=== PATIENT | female | born 1965 | race Caucasian/White ===

== ENCOUNTER 2019-09-23 12:12 | Emergency (ER) | payer SELFPAY ==
[~2019-09-23] VITALS: Ht 167.6 cm; Wt 99.8 kg
--- NOTE | 2019-09-24 22:12 | EKG ---
[facility] [address] [facility] [place], [place] [address] Signed Normal sinus rhythm Nonspecific ST abnormality Abnormal ECG No previous ECGs available Confirmed by YOCASTA LINDA MD ([id number]) on 09/24/2019 10:12:23 PM Electronically Signed By: YOCASTA LINDA MD 09/24/192211 PATIENT NAME: ANNABELLA HONEYCUTT Electrocardiogram DATE OF : 69 PHYSICIAN: YOCASTA LINDA MD REPORT #: [id number] REPORT IS CONFIDENTIAL AND NOT TO BE RELEASED WITHOUT AUTHORIZATION
== END 2019-09-23 19:07 | disposition home or self-care (01) ==
LOC: ED 12:12
DX: T42.4X1A Poisoning by benzodiazepines, accidental (unintentional), initial encounter (principal); I10 Essential (primary) hypertension; F41.0 Panic disorder [episodic paroxysmal anxiety]
CPT/HCPCS: 80053; 85025; 93005; 93010; 99284-25

== ENCOUNTER 2022-09-11 12:33 | Emergency (ER) | payer OTHER ==
[~2022-09-11] VITALS: Ht 167.6 cm; Wt 104.6 kg
--- OUTSIDE RECORDS SUMMARY | ~2022-09-11 | XMS | Continuity of Care Document ---
Demographics + + + | Address | [address] | | | [place] [address] | + + + | Preferred Language | Unknown | + + + | Marital Status | | + + + | Episcopalian Affiliation | Unknown | + + + | Race | White | + + + | Ethnic Group | Not or | + + + Author + + + | Author | [facility] | + + + | Organization | [facility] | + + + | Address | [address] | | | [place] [address] | + + + | Phone | | + + + Care Team Providers + + + + | Care Pta Name | Role | Phone | + + + + Unavailable | Unavailable | + + + + Allergies and Intolerances + + + + + + | date | description | facility | reaction | severity | + + + + + + | (no date) | No Known | [facility] | (no reaction) | (no severity) | | | Allergies | | | | + + + + + + Encounters No information. Functional Status No information. Immunizations No information. Medications No information. Problems + + + + | date | description | facility | + + + + | 2022-07-23 14:00 | ENCNTR SCREEN MAMMOGRAM | [facility] | | | FOR [facility] | | + + + + | 2022-09-04 07:55 | ENCNTR SCREEN MAMMOGRAM | [facility] | | | FOR [facility] | | + + + + | 2022-09-04 07:55 | ENCNTR SCREEN MAMMOGRAM | [facility] | | | FOR [facility] NEOPLASM OF | | | | BREAST | | + + + + | 2022-09-04 08:00 | ENCNTR SCREEN MAMMOGRAM | [facility] | | | FOR [facility] | | + + + + Procedures No information. Results/Labs No information. Social History No information. Vital Signs No information."
--- OUTSIDE RECORDS SUMMARY | ~2022-09-11 | XMS | Continuity of Care Document ---
Demographics + + + | Address | [address] | | | [place] [address] | + + + | Preferred Language | Unknown | + + + | Marital Status | | + + + | Denominational Affiliation | Unknown | + + + | Race | White | + + + | Ethnic Group | Not or | + + + Author + + + | Author | [facility] | + + + | Organization | [facility] | + + + | Address | [address] | | | [place] [address] | + + + | Phone | | + + + Care Team Providers + + + + | Care Business Systems Analyst Name | Role | Phone | + [...]
[2022-09-11] MEDS ORDERED: DICLOFENAC SOD100 GM TOP (14:13)
[2022-09-11 14:20] VITALS: BP 124/74
== END 2022-09-11 14:20 | disposition home or self-care (01) ==
LOC: ED 12:33
DX: M25.511 Pain in right shoulder (principal); I10 Essential (primary) hypertension
CPT/HCPCS: 99283

== ENCOUNTER 2022-12-10 10:28 | Day surgery (SDC) | payer OTHER, MEDICAID ==
[2022-12-09 11:47] VITALS: BP 95/62
[~2022-12-10] VITALS: Ht 167.6 cm; Wt 98.0 kg
[~2022-12-10 10:28] MED LIST: DICLOFENAC SOD100 GM TOP; LEVOTHYROXINE88 MC1 PO; LISINOPRIL-HCT1 EACH PO; OMEPRAZOLE20 MG PO; PROPRANOLOL HCL40 MG PO; PROZAC20 MG PO; TRIAMCINOLONE A15 G3 TOP; WELLBUTRIN XL150 MG PO
[2022-12-10 10:44] VITALS: BP 100/50
[2022-12-10 11:11] LABS: BASOPHILS 0.5 % (0-2); EOSINOPHILS 0.1 % (0-6); HEMATOCRIT 19.8 % (35.0-50.0); HEMOGLOBIN 8.2 g/dL (12.0-18.0); MCH 35.9 (27-36); MCHC 41.4 g/dl (30-36); MCV 86.6 fl (81-99); MONOCYTES 9.7 % (0-12); NEUTROPHILS 30.7 % (39-80); RBC 2.29 M/ul (4.3-5.7); RDW 14.8 (10.5-15.0)
[2022-12-10 11:30] LABS: PLATELET COUNT 28 K/uL (140-440)
[2022-12-10 12:14] LABS: ALBUMIN 3.5 g/dL (3.4-5.0); ALBUMIN/GLOBULIN RATIO 0.64 (1.1-2.4); ANION GAP 13.9 (7-21); BILIRUBIN, TOTAL 0.4 ng/dL (0.2-1.0); BUN/CREATININE RATIO 19.29 (6.0-28.6); CALCIUM 9.2 mg/dL (8.5-10.1); CREATININE, SERUM 1.14 mg/dL (0.55-1.02); POTASSIUM 3.9 mmol/L (3.5-5.1)
[2022-12-10 12:50] LABS: ABO B; ANTIBODY SCREEN NEGATIVE; RH POSITIVE
[2022-12-10 12:51] LABS: ABO B; RH POSITIVE
--- NOTE | 2022-12-10 13:38 | NUR ---
1133: CALLED CANCER CLINIC TO REPORT CRITICAL PLATELET VALUE. SPOKE WITH Adi LUTZ RN. ALSO NOTIFIED HER OF PATIENT'S ONGOING BLOODY NOSE FOR THE PAST COUPLE HOURS AND NEWLY REPORTED BLEEDING FROM RECTUM. CHARLIE LUTZ WILL REPORT ALL THIS INFO TO DR. CHÁVEZ. 1145: CHARLIE LUTZ PHONED BACK. STATED THAT DR. CHÁVEZ WILL COME SEE PATIENT IN DAY SURGERY AND PLANS TO ORDER PLATELETS. 1155: DR. CHÁVEZ IN TO SPEAK WITH PATIENT AND . NEW ORDER RECEIVED FOR PLATELETS. LAB NOTIFIED. WILL DRAW TYPE AND SCREEN. 1201: BLOOD DRAWN FROM IV SITE FOR TYPE AND SCREEN. BLOOD BAND PLACED ON PATIENT'S LEFT WRIST. COLLATING MACHINE OPERATOR IN TO SPEAK WITH PATIENT AND . 1207: RT IN PATIENT'S ROOM TO DO EKG. 1212: PATIENT TAKEN TO ENDO ROOM FOR PROCEDURE.
--- NOTE | 2022-12-10 13:44 | NUR ---
1308: RECOVERY PERIOD FOR PATIENT ENDED. NOW BACK IN DAY SURGERY. AWAITING PLATELETS ARRIVAL. LUNCH ORDERED FOR PATIENT. AT BEDSIDE. 1330: LUNCH HERE. PATIENT GIVEN SODA. AT BEDSIDE. CALL LIGHT WITHIN REACH.
--- NOTE | 2022-12-10 15:19 | NUR ---
CHECKED PATIENT. PATIENT SLEEPING. UPDATED THAT WE ARE STILL WAITING FOR PLATELETS TO ARRIVE. AT BEDSIDE. CALL LIGHT WITHIN REACH.
--- NOTE | 2022-12-10 15:59 | NUR ---
PATIENT GIVEN WARM BLANKETS AND SODA. AT BEDSIDE. CALL LIGHT WITHIN REACH.
--- NOTE | 2022-12-10 17:15 | NUR ---
PT ARRIVES TO FLOOR FROM DAY SURGERY VIA STRETCHER. ALERT AND ORIENTED. BP 93/46, MAP 58. PT STATES FEELING DIZZY. LAID DOWN ON STRETCHER. PT DENIES FURTHER NEEDS AT THIS TIME. FAMILY AT BEDSIDE. CALL LIGHT IN REACH.
[2022-12-10 17:27] VITALS: BP 93/46
[2022-12-10 17:45] VITALS: BP 91/48
[2022-12-10 18:00] VITALS: BP 94/43
[2022-12-10 18:54] VITALS: BP 128/51
--- NOTE | 2022-12-10 18:54 | NUR ---
PT ASSISTED FROM STRETCHER TO BSC. DENIES DIZZNESS OR LIGHT HEADEDNESS. 300 ML CLEAR YELLOW URINE. PT BACK TO STRETCHER. BP 128/51. CALL LIGHT IN REACH.
--- NOTE | 2022-12-10 19:26 | NUR ---
PT RESTING IN STRETCHER, DENIES DIZZINESS OR LIGHT HEADEDNESS. DENIES PAIN OR NEEDS AT THIS TIME. CALL LIGHT IN REACH. SO AT BEDSIDE.
--- NOTE | 2022-12-10 19:42 | NUR ---
Into check on patient. Patient currently laying in bed watching tv. Pt given fresh water. Denies any other cares at this time.
--- NOTE | 2022-12-10 20:03 | NUR ---
Patient discharged with . Pt tolerated standing and getting dressed well. Blood pressure has improved. Patient left with all her belongings via a wheelchair. Denies dizziness. C/o slight upset stomach but states that has been going on. IV removed.
[2022-12-11 05:24] LABS: FOLATE,SERUM 11.4 ng/mL (>=5.9)
[2022-12-11 08:44] LABS: HEPATITIS A ANTIBODY, IGM Negative (Negative); HEPATITIS B CORE ANTIBODY, IGM Negative (Negative); HEPATITIS B SURFACE ANTIGEN Negative (Negative); HEPATITIS C AB CIA INTERP Negative (Negative); HEPATITIS C ANTIBODY CIA INDEX 0.06 IV (())
[2022-12-11 09:26] LABS: HIV 1,2 COMBO ANTIGEN/ANTIBODY Negative (Negative)
--- NOTE | 2022-12-11 12:38 | EKG ---
[facility] [address] [facility] [address] [place], [place] [address] Signed Normal sinus rhythm Normal ECG Confirmed by MIGUEL ANGEL COATES MD ([id number]) on 12/11/2022 12:37:41 PM Electronically Signed By: MIGUEL ANGEL COATES 12/11/22 1238 PATIENT NAME: ANNABELLA DING Electrocardiogram DATE OF : 69 PHYSICIAN: MIGUEL ANGEL COATES REPORT #: [id number] REPORT IS CONFIDENTIAL AND NOT TO BE RELEASED WITHOUT AUTHORIZATION
[2022-12-11 12:44] LABS: BETA-2-MICROGLOBULIN,SER/PLAS 3.2 mg/L (0.8-2.4)
[2022-12-11 14:16] LABS: IMMUNOGLOBULIN A 274 mg/dL (68-408); IMMUNOGLOBULIN G 932 mg/dL (768-1632); IMMUNOGLOBULIN M 2730 mg/dL (35-263); KAPPA QNT FREE LIGHT CHAINS 41.39 mg/L (3.30-19.40); KAPPA/LAMBDA FREE LIGHT CH RAT 2.25 (0.26-1.65); LAMBDA QNT FREE LIGHT CHAINS 18.38 mg/L (5.71-26.30)
[2022-12-13 08:37] LABS: ALBUMIN 3.84 g/dL (3.75-5.01); ALPHA 1 GLOBULIN 0.37 g/dL (0.19-0.46); ALPHA 2 GLOBULIN 0.76 g/dL (0.48-1.05); BETA GLOBULIN 2.08 g/dL (0.48-1.10); GAMMA 1.25 g/dL (0.62-1.51); IMMUNOFIXATION REFLEX IFE Done (()); TOTAL PROTEIN,SERUM 8.3 g/dL (6.3-8.2)
== END 2022-12-10 13:08 | disposition home or self-care (01) ==
LOC: DS 10:28
PROVIDERS: ATTEND Specialist
PROC: 079T3ZX Drainage of Bone Marrow, Percutaneous Approach, Diagnostic (ICD-10-PCS; principal; 2022-12-10 12:00)
DX: D61.818 Other pancytopenia (principal)
CPT/HCPCS: 01112; 36415; 36430; 80053; 80074; 82232; 82607; 82746; 83615; 85025; 85060; 86850; 86900; 86901; 93005; 93010; A9270; J2001; J2250; J2405; J2704; J3010; J7121; P9035

== ENCOUNTER 2022-12-19 15:58 | Emergency (ER) | payer OTHER, MEDICAID ==
[~2022-12-19] VITALS: Ht 167.6 cm; Wt 98.0 kg
--- OUTSIDE RECORDS SUMMARY | 2022-12-19 16:06 | XMS ---
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 CARE TEAM PHONE: [phone] Wade has no Care Guidelines for this patient. E.D. VISIT COUNT (12 MO.) [address] [facility] TOTAL 4 NOTE: Visits indicate total known visits. ED/UCC VISIT TRACKING (12 MO.) 12/19/2022 15:59 [facility] TYPE: Emergency COMPLAINT: - HEART PALPATATIONS 12/14/2022 18:17 [facility] TYPE: Emergency COMPLAINT: - NOSE BLEED DIAGNOSES: - Epistaxis - Essential (primary) hypertension - Hormone replacement therapy - Hypothyroidism, unspecified - Other 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 - Other pancytopenia 12/02/2022 17:40 [facility] TYPE: Emergency COMPLAINT: - ABNORMAL LAB RESULTS DIAGNOSES: - Epistaxis - Essential (primary) hypertension - Hormone replacement therapy - Hypothyroidism, unspecified - Other [facility] (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 - Other pancytopenia - Weakness 09/11/2022 12:34 [facility] TYPE: Emergency COMPLAINT: - R SHOULDER PAIN DIAGNOSES: - Essential (primary) hypertension - Pain in right shoulder INPATIENT VISIT TRACKING (12 MO.) No inpatient visits to display in this time frame [email or web address]
[2022-12-19] MEDS ORDERED: DEXAMETHASONE4 MG PO (16:08)
[2022-12-19 16:22] LABS: EOSINOPHILS 0.2 % (0-6); HEMATOCRIT 22.5 % (35.0-50.0); HEMOGLOBIN 8.7 g/dL (12.0-18.0); LYMPHOCYTES 5.4 % (24-44); MCH 33.2 (27-36); MCHC 38.5 g/dl (30-36); MCV 86.2 fl (81-99); MONOCYTES 3.3 % (0-12); NEUTROPHILS 91.1 % (39-80); RBC 2.61 M/ul (4.3-5.7); RDW 16.8 (10.5-15.0)
[2022-12-19 16:33] LABS: ALBUMIN 3.6 g/dL (3.4-5.0); ALBUMIN/GLOBULIN RATIO 0.77 (1.1-2.4); ANION GAP 15.8 (7-21); BILIRUBIN, TOTAL 0.6 ng/dL (0.2-1.0); BUN/CREATININE RATIO 24.44 (6.0-28.6); CALCIUM 8.7 mg/dL (8.5-10.1); CREATININE, SERUM 1.35 mg/dL (0.55-1.02); MAGNESIUM 2.4 mg/dL (1.8-2.4); POTASSIUM 3.8 mmol/L (3.5-5.1); PROTEIN, TOTAL 8.3 g/dL (6.4-8.2)
[2022-12-19 17:10] LABS: PLATELET COUNT 38 K/uL (140-440)
[2022-12-19] MEDS ORDERED: ATIVAN1 MG PO (17:43)
[2022-12-19 17:58] VITALS: BP 129/70
--- NOTE | 2022-12-20 06:00 | EKG ---
[facility] [address] [facility] [place] [address] Signed Sinus rhythm with premature atrial complexes Nonspecific ST abnormality Abnormal ECG When compared with ECG of 10-DEC-2022 12:06, premature atrial complexes are now present Confirmed by MIGUEL ANGEL COATES MD ([id number]) on 12/20/2022 6:00:07 AM Electronically Signed By: MIGUEL ANGEL COATES 12/20/22 0600 PATIENT NAME: ANNABELLA DING Electrocardiogram DATE OF : 69 PHYSICIAN: MIGUEL ANGEL COATES REPORT #: [id number] REPORT IS CONFIDENTIAL AND NOT TO BE RELEASED WITHOUT AUTHORIZATION
== END 2022-12-19 17:58 | disposition home or self-care (01) ==
LOC: ED 15:58
PROVIDERS: Emergency Medicine
DX: F41.9 Anxiety disorder, unspecified (principal); T38.0X5A Adverse effect of glucocorticoids and synthetic analogues, initial encounter; I10 Essential (primary) hypertension; Z79.899 Other long term (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; Z79.890 Hormone replacement therapy; Z79.52 Long term (current) use of systemic steroids
CPT/HCPCS: 36415; 71045; 80053; 83735; 84484; 85025; 85060; 93005; 93010; 96374; 99284-25; A9270; C9803; J2060

== ENCOUNTER 2023-02-22 05:59 | Emergency (ER) | payer OTHER, MEDICAID ==
[~2023-02-22] VITALS: Ht 165.1 cm; Wt 100.5 kg
[~2023-02-22 05:59] MED LIST changes: +ATIVAN1 MG PO; +DEXAMETHASONE4 MG PO
[2023-02-22 06:45] LABS: BASOPHILS 0.1 % (0-2); EOSINOPHILS 0.4 % (0-6); HEMATOCRIT 30.5 % (35.0-50.0); HEMOGLOBIN 11.4 g/dL (12.0-18.0); LYMPHOCYTES 14.6 % (24-44); MCH 34.6 (27-36); MCHC 37.3 g/dl (30-36); MCV 92.7 fl (81-99); MONOCYTES 15.5 % (0-12); NEUTROPHILS 69.4 % (39-80); PLATELET COUNT 167 K/uL (140-440); RBC 3.29 M/ul (4.3-5.7); RDW 17.5 (10.5-15.0)
[2023-02-22 06:54] LABS: ALBUMIN 3.4 g/dL (3.4-5.0); ALBUMIN/GLOBULIN RATIO 0.77 (1.1-2.4); BILIRUBIN, TOTAL 0.3 ng/dL (0.2-1.0); BUN/CREATININE RATIO 18.36 (6.0-28.6); CALCIUM 8.7 mg/dL (8.5-10.1); CREATININE, SERUM 0.98 mg/dL (0.55-1.02); PROTEIN, TOTAL 7.8 g/dL (6.4-8.2)
[2023-02-22] MEDS ORDERED: PREDNISONE20 MG PO (07:07)
[2023-02-22 07:22] VITALS: BP 165/93
== END 2023-02-22 07:22 | disposition home or self-care (01) ==
LOC: ED 05:59
PROVIDERS: Internal Medicine
DX: M54.42 Lumbago with sciatica, left side (principal); C85.10 Unspecified B-cell lymphoma, unspecified site; I10 Essential (primary) hypertension; Z79.899 Other long term (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; Z79.52 Long term (current) use of systemic steroids
CPT/HCPCS: 36415; 72131; 80053; 82553; 85025; 85060; 96374; 96375; 99284-25; A9270; J2270; J2405

== ENCOUNTER 2023-03-18 10:30 | Day surgery (SDC) | payer OTHER ==
[2023-03-16 16:22] VITALS: BP 134/87
[~2023-03-18] VITALS: Ht 165.1 cm; Wt 97.7 kg
[~2023-03-18 10:30] MED LIST changes: +PREDNISONE20 MG PO
[2023-03-18 10:58] LABS: BASOPHILS 0.2 % (0-2); BASOPHILS, ABSOLUTE 0 %; EOSINOPHILS 0.2 % (0-6); EOSINOPHILS, ABSOLUTE 0; HEMATOCRIT 32.6 % (35.0-50.0); HEMOGLOBIN 11.6 g/dL (12.0-18.0); LYMPHOCYTES 23.8 % (24-44); LYMPHOCYTES, ABSOLUTE 1.3; MCH 32.4 (27-36); MCHC 35.5 g/dl (30-36); MCV 91.4 fl (81-99); MONOCYTES 14.2 % (0-12); MONOCYTES, ABSOLUTE 0.8; NEUTROPHILS 61.6 % (39-80); NEUTROPHILS, ABSOLUTE 3.4; PLATELET COUNT 148 K/uL (140-440); RBC 3.57 M/ul (4.3-5.7); RDW 15.4 (10.5-15.0)
[2023-03-18 10:59] VITALS: BP 147/71
[2023-03-18 13:31] VITALS: BP 109/66
--- NOTE | 2023-03-18 13:37 | NUR ---
03/18/23 1337 SamYuliya rowan 1227 PT ARRIVED IN PACU NON RESPONSIVE TO NOXIOUS STIMULI WITH OPA IN PLACE. BP LOW. ANESTHESIA AWARE. 1233 EPHEDRINE GIVEN IVP BY ANESTHESIA. 1235 BP 106/63. PT REACTIVE. OPA REMOVED. 1245 REPOSITIONED SELF TO BACK AND SITTING UP IN BED TALKING TO STAFF. 1300 DC INSTRUCTIONS GIVEN. LEFT VIA W/C.
--- NOTE | 2023-03-26 12:40 | PATH ---
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 - No circulating blasts or atypical lymphocytes are identified. Bone marrow biopsy and aspiration: - Hypercellular marrow, 90%, with less than 1% blasts. - Trilineage hematopoiesis with mild megakaryocytic hyperplasia. - No malignancy is identified by morphology or immunohistochemistry. - Flow cytometry detects a non-specific kappa biased B-cell population (0.04%). - See diagnostic comment. DIAGNOSTIC COMMENT: No residual lymphoplasmacytic lymphoma is identified by morphology or immunohistochemistry. However, flow cytometry detects an extremely small population of kappa biased B-cells occupying approximately 0.04% of all gated cells. This may represent minimal residual disease, but this cannot be confirmed by morphologic or immunohistochemistry staining. A MYD88 mutation study and B-cell gene rearrangement studies are ordered to help evaluate for MRD. The results will be reported in an addendum. A hypercellular marrow with megakaryocytic hyperplasia with mild atypia is noted. Molecular studies for JAK2 V617, MPL, and CALR were negative in the prior bone marrow exam ([id number]). A BCR/ABL1 FISH probe and a FISH panel for MDS are pending on the current bone marrow. Evaluation for splenomegaly is recommended. The etiology for the hypercellular marrow is unclear. Exclusion of drug effect (steroids or Neupogen) is needed. 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 Subsequently, the patient was found with an IgM-Peoa M-spike consistent with Waldenstrom's macroglobulinemia. She has received chemotherapy and this bone marrow exam is to evaluate for MRD. PERIPHERAL BLOOD: HEMOGRAM (03/18/2023): WBC 5.5 K/ul, RBC 3.57 M/ul, HGB 11.6 g/dl, HCT 32.6%, MCV 91.4 fl, MCH 32.4 pg, MCHC 35.5 g/dl, RDW 15.4%, PLT 148 K/ul, MPV 10.7 fl. AUTOMATED DIFFERENTIAL COUNT: Neutrophils 61.6%, lymphocytes 23.8%, monocytes 14.2%, eosinophils 0.2%, basophils 0.2%. The red blood cells are normocytic and normochromic with minimal aniso-poikilocytosis. The neutrophils are unremarkable. Lymphocytes are composed of small mature appearing forms. Platelets are basically normal in number and morphology with no platelet clumping or RBC microangiopathic effect identified. No blasts or atypical lymphocytes are identified. BONE MARROW: ASPIRATE SMEARS/TOUCH IMPRINT: The aspirate smears are adequate for evaluation. Scattered erythroid precursors show adequate maturation with essentially normal morphology. The myeloid precursors show full maturation with unremarkable morphology. There is no increase in blasts. Megakaryocytes are identified with some enlarged multilobed forms. BONE MARROW DIFFERENTIAL COUNT (300 cells): Blasts less than 1%. promyelocytes 1%, myelocytes 4%, metamyelocytes/bands/segs 59%, erythroid precursors 11%, lymphocytes 17%, monocytes 4%, eosinophils 3%, plasma cells 1%. M:E ratio: 6:1 BONE MARROW CORE BIOPSY/ASPIRATE CLOT/CELL BLOCK: The aspirate clot section and the core biopsy are adequate for evaluation. The core biopsy demonstrates unremarkable trabecular bone. The cellularity is increased for age, estimated at 90%. The erythroid precursors are within normal limits with essentially unremarkable maturation. The myeloid precursors are unremarkable with no significant dyspoiesis. Blasts are not increased. Megakaryocytes appear increased in number with some enlarged hyperlobated megakaryocytes. No granulomas, or foreign malignant cells are detected. SPECIAL STAINS (with adequate controls): - iron (aspirate smear): Insufficient marrow spicules are present for evaluation of marrow iron stores. PATIENT NAME: KHURRAM HONEYCUTTANNABELLA PATHOLOGY DATE OF : 69 REPORT #: [id number] PHYSICIAN: GLADIS PATHOLOGY PCP: STEPHANIE WHITE MD REPORT IS CONFIDENTIAL AND NOT TO BE RELEASED WITHOUT AUTHORIZATION [address] [address] Signed - iron (cell block): Positive for iron with Prussian Blue stain. No ring sideroblasts are identified. - reticulin (block A1): MF-0 - PAS (block B1): Increased megakaryocytes with some atypia. IMMUNOHISTOCHEMISTRY STAINS (performed with adequate controls). - PAX5 (block A1): 1-2% with no atypical aggregates - CD3 (block A1): Strongly positive in lymphoid aggregate - PAX5 (block B1): 1-2% with no atypical aggregates. - CD3 (block B1): Strong marking in lymphoid aggregates. FLOW CYTOMETRY: Bone marrow, flow cytometry: - Scant population of CD5 negative, CD10 negative, kappa biased B-cells (0.04%). - See Comment. COMMENT: The patient's prior history of Waldenstrom's macroglobulinemia is noted. A scant (0.04% population of kappa biased B-cells is noted. These B-cells are negative for CD5 and CD10 and have a similar marking pattern to the prior positive bone marrow evaluation (see case [id number]; 12/10/2022). This is suspicious for minimal residual disease (0.04%). Correlation with bone marrow findings is needed. FLOW CYTOMETRY ANALYSIS: FLOW DIFFERENTIAL (% Total CD45 vs. SSC gating): Myeloid 77%; Lymphoid 13%; Monocyte 5%; Dim CD45/Blast: 0.3%. Cell Count: 5.1 x 10*3/uL. POPULATION ANALYSIS: BLASTS: Analysis of the dim CD45 gate demonstrates 0.3% myeloblasts by CD34/CD117 and 0.1% hematogones. LYMPHOID CELLS: The lymphocyte gate comprises 13% of total events and includes 84% T-cells with a CD4:CD8 ratio of 1.5:1 and normal durna T-cell antigen expression. A minute kappa-restricted B-cell population is detected (0.3% of lymphocytes, 0.04% of total events, n=14) expressing CD45 MOD, CD19 DIM, CD38 DIM (partial), and KAPPA MOD while negative for CD20, CD5, CD10, CD23, and CD38. The remainders are NK-cells. MYELOID CELLS: The myeloid population comprises 77% of the total events. No aberrant immunophenotypic expression is detected. MONOCYTES: The monocyte population comprises 5% of the total events. Monocytes are not increased. No aberrant immunophenotypic expression is detected. PATIENT NAME: ANNABELLA GOLD PATHOLOGY DATE OF : 69 REPORT #: [id number] PHYSICIAN: GLADIS ROD PCP: STEPHANIE WHITE MD REPORT IS CONFIDENTIAL AND NOT TO BE RELEASED WITHOUT AUTHORIZATION [facility] [address], [place] [address] Signed PLASMA CELLS: 0.1% plasma cells are detected in the screening gate neg-dimCD45/CD38. Plasma cells are CD45 dim and positive for CD19. ANTIBODIES USED: KAPPA, LAMBDA, CD20, CD10, CD19, CD23, CD38, CD16, CD56, CD8, CD5, CD2, CD4, CD7, CD3, CD14, CD33, CD13, HLADR, CD34, CD117, CD15, CD45: TOTAL ANTIBODIES USED: 23. JNB FINAL DIAGNOSIS PERFORMED BY: Drew Becerra MD, Mar 19 2023 12:19PM CYTOGENETICS: Chromosome analysis is pending, and the result will be reported in an addendum. FISH ANALYSIS: A FISH panel for MDS is pending, and the result will be reported in an addendum. MOLECULAR / PCR: A mutation study for MYD88 is pending, and the result will be reported in an addendum. B-cell gene rearrangement studies are pending. GROSS DESCRIPTION: Two specimens are received in two containers. A. The specimen, labeled and designated "Miguel Gold, bone marrow biopsy, left core," is received in formalin and consists of a portion of red-aguilera soft tissue and bone measuring 2.4 x 0.2 x 0.2 cm, the specimen is submitted entirely in (A1) following decalcification in Immunocal. B. The specimen, labeled and designated "Miguel Gold, bone marrow biopsy clot," is received in formalin and consists of a portion of red-brown soft clot like material measuring 2.3 x 1.6 x 0.8 cm in aggregate, the specimen is submitted entirely in (B1). MMA (under the direct supervision of a pathologist) The Gross Description was prepared using a voice recognition system. The report was reviewed for accuracy; however, sound-alike word errors, addition and/or deletions may occur. If there is any question about this report, please contact Client Services. ADDITIONAL NOTES: Immunohistochemical and/or in situ hybridization studies if performed in this case included appropriate positive controls that reacted as expected. This test was developed and its performance PATIENT NAME: ANNABELLA GOLD FRANCESCA PATHOLOGY DATE OF : 69 REPORT #: [id number] PHYSICIAN: GLADIS ROD PCP: STEPHANIE WHITE MD REPORT IS CONFIDENTIAL AND NOT TO BE RELEASED WITHOUT AUTHORIZATION [address] [address] Signed characteristics determined by [facility]. It has not been cleared or approved by the U.S. Food and Drug Administration. The FDA has determined that such clearance or approval is not necessary. This test is used for clinical purposes. It should not be regarded as investigational or for research. [facility] is certified under the Clinical Laboratory Improvement Amendments of 1988 (CLIA) as qualified to perform high complexity clinical laboratory testing. In this case, certain antibodies were performed by both immunohistochemistry and flow cytometry analysis because flow cytometry analysis did not fully explain all the light microscopic findings. Immunohistochemistry aided in the analysis. Both methods are deemed medically necessary in this case. This test was developed and its performance characteristics determined by [facility]. It has not been cleared or approved by the US Food and Drug Administration. The FDA does not require this test to go through premarket FDA review. This test is used for clinical purposes. It should not be regarded as investigational or for research. This laboratory is certified under the Clinical Laboratory Improvement Amendments (CLIA) as qualified to perform high complexity clinical laboratory testing. PERFORMING LABORATORY: The technical preparation was performed by [facility], [address] [place] [address] (CLIA#: [id number]). Professional interpretation was performed by [facility] - [facility], [address] [place], [place] [id number] (CLIA#: [id number]). Technical component was performed by [facility], [address] [place] [address] (CLIA# [id number]). Professional interpretation was performed by [facility], [address] [place], [place] [id number] (CLIA#: [id number]). IMAGES: A: [id number] A: [id number] REASON FOR ADDENDUM: To report results of additional testing. Bone marrow, MYD88 Mutation(s): Not Detected PATIENT NAME: ANNABELLA GOLD PATHOLOGY DATE OF : 69 REPORT #: [id number] PHYSICIAN: GLADIS PATHOLOGY PCP: STEPHANIE WHITE MD REPORT IS CONFIDENTIAL AND NOT TO BE RELEASED WITHOUT AUTHORIZATION [facility] [address], [place] [address] Signed Clinical Significance: MYD88 mutation is the most frequent genomic abnormality in diffuse large B-cell lymphoma (DLBCL) activated B-cell-like (ABC) subtype, detected in 40% of cases. MYD88 is rarely mutated in the germinal center B-cell-like (GCB) DLBL, therefore, it can be used to differentiate between the two subtypes. MYD88 mutation is detected in approximately 90% of cases of Waldenstrom macroglobulinemia/lymphoplasmacytic lymphoma. MYD88 mutation analysis can be a useful prognostic tool for patients with IgM-MGUS since the L265P mutation is associated with a higher risk of disease progression and a greater disease burden. MYD88 mutation has also been reported to be common (40%) in central nervous system lymphoma. Methodology: DNA was extracted from cells or paraffin-embedded tissues (FFPE). Bi-directional Wyckoff sequencing of the L265P mutation in exon 5 of MYD88 was performed. This is a high sensitivity sequencing-based assay using enrichment of mutant allele and negative selection of wild type by locked nucleic acid (BITUMINOUS DISTRIBUTOR OPERATOR). The assay has a sensitivity of 0.5% for detecting the L265P mutation in a wild-type background. Various factors including quantity and quality of nucleic acid, sample preparation, and sample age can affect assay performance. References: 1. Kenya SP, Rogel L, Karsten ML, Josias C, et al. Genomic Landscape of Waldenstrom Macroglobulinemia and Its Impact on Treatment Strategies. J Clin Oncol. 2020;38(11):4126-8288. PMID: 51571686. 2. Kang X, Li W, Aguilar Q,et al. MYD88 L265P Mutation in Lymphoid Malignancies. Cancer Res. 2018;78(10):3433-2444. PMID: 79607019. Test/Panel/MolDX CPT AMA CPT MYD88 Mutation Analysis/[id number] Accession / CaseNo: [id number] / [id number] The Accessioning Component, Technical Component Processing, Analysis and Professional Component of this test was completed at [facility], [address] [place] [address], [place] / [address] / [phone] / CLIA # [id number] / Mental Health Associate(s): Russell Quiros M.D. Interpretation Code(s): [id number] The performance characteristics of this test have been determined by [facility]. This test has not been approved by the FDA. The FDA has determined such clearance or approval is not necessary. This laboratory is CLIA certified to perform high complexity PATIENT NAME: ANNABELLA GOLD FRANCESCA PATHOLOGY DATE OF : 69 REPORT #: [id number] PHYSICIAN: GLADIS ROD PCP: STEPHANIE WHITE MD REPORT IS CONFIDENTIAL AND NOT TO BE RELEASED WITHOUT AUTHORIZATION [address] [address] Signed clinical testing. Images that may be included within this report are distribution sales representative of the patient but not all testing in its entirety and should not be used to render a result. The CPT codes provided with our test descriptions are based on MolDX and AMA guidelines and are for informational purposes only. Correct CPT coding is the sole responsibility of the billing libertarian. Please direct any questions regarding coding to the payer being billed. Diagnostician: Drew Becerra MD Pathologist Electronically Signed 03/26/2023 Copies: ~ PATIENT NAME: ANNABELLA GOLD PATHOLOGY DATE OF : 69 REPORT #: [id number] PHYSICIAN: GLADIS PATHOLOGY PCP: STEPHANIE WHITE MD REPORT IS CONFIDENTIAL AND NOT TO BE RELEASED WITHOUT AUTHORIZATION
== END 2023-03-18 13:00 | disposition home or self-care (01) ==
LOC: OPS 10:30 → DS 10:30 → OPS 12:00
PROVIDERS: ATTEND Specialist
DX: C88.0 Waldenstrom macroglobulinemia (principal); I10 Essential (primary) hypertension; E03.9 Hypothyroidism, unspecified; F32.9 Major depressive disorder, single episode, unspecified; G43.909 Migraine, unspecified, not intractable, without status migrainosus; D61.818 Other pancytopenia; Z79.899 Other long term (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; D64.9 Anemia, unspecified
CPT/HCPCS: 01112; 36415; 85025; J2250; J2704; J7121

== ENCOUNTER 2023-03-24 11:23 | Emergency (ER) | payer OTHER ==
[~2023-03-24] VITALS: Ht 165.1 cm; Wt 97.5 kg
--- OUTSIDE RECORDS SUMMARY | 2023-03-24 11:31 | XMS ---
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 Araseli VISIT COUNT (12 MO.) [address] [place] [address] TOTAL 6 NOTE: Visits indicate total known visits. ED/UCC VISIT TRACKING (12 MO.) 03/24/2023 11:25 [facility] TYPE: Emergency COMPLAINT: - L ANKLE INJURY 02/22/2023 06:00 [facility] TYPE: Emergency COMPLAINT: - L FLANK PAIN DIAGNOSES: - Essential (primary) hypertension - nursing home (current) use of systemic steroids - Low back pain, unspecified - Lumbago with sciatica, left side - Other [facility] (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 - Unspecified B-cell lymphoma, unspecified site 12/19/2022 15:59 [facility] TYPE: Emergency COMPLAINT: - HEART PALPATATIONS DIAGNOSES: - Adverse effect of glucocorticoids and synthetic analogues, initial encounter - Anxiety disorder, unspecified - Contact with and (suspected) exposure to COVID-19 - Encounter for screening for COVID-19 - Essential (primary) hypertension - Hormone replacement therapy - 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 [place] TYPE: Emergency COMPLAINT: - NOSE BLEED DIAGNOSES: - Epistaxis - Essential (primary) hypertension - Hormone replacement therapy - Hypothyroidism, unspecified - Other [facility] (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 - Other pancytopenia 12/02/2022 17:40 [facility] TYPE: Emergency COMPLAINT: - ABNORMAL LAB RESULTS DIAGNOSES: - Epistaxis - Essential (primary) hypertension - Hormone replacement therapy - Hypothyroidism, unspecified - Other [facility] (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 - Other pancytopenia - Weakness 09/11/2022 12:34 [facility] TYPE: Emergency COMPLAINT: - R SHOULDER PAIN DIAGNOSES: - Essential (primary) hypertension - Pain in right shoulder INPATIENT VISIT TRACKING (12 MO.) No inpatient visits to display in this time frame [email or web address]
[2023-03-24 12:23] VITALS: BP 118/66
== END 2023-03-24 12:28 | disposition home or self-care (01) ==
LOC: ED 11:23
DX: S93.402A Sprain of unspecified ligament of left ankle, initial encounter (principal); I10 Essential (primary) hypertension; F41.0 Panic disorder [episodic paroxysmal anxiety]; E03.9 Hypothyroidism, unspecified; Z79.899 Other long term (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; X50.9XXA Other and unspecified overexertion or strenuous movements or postures, initial encounter; Y93.01 Activity, walking, marching and hiking
CPT/HCPCS: 73610; 99283-25; A9270

== ENCOUNTER 2023-04-10 06:43 | Inpatient (IN) | payer OTHER ==
[~2023-04-10] VITALS: Ht 165.1 cm; Wt 105.0 kg
--- OUTSIDE RECORDS SUMMARY | 2023-04-10 06:46 | XMS ---
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 E.DMk VISIT COUNT (12 MO.) [address] [place] [address] TOTAL 7 NOTE: Visits indicate total known visits. ED/UCC VISIT TRACKING (12 MO.) 04/10/2023 06:[address] [facility] [place] TYPE: Emergency COMPLAINT: - V/D, ABD PAIN 03/24/2023 11:25 [facility] [place] TYPE: Emergency COMPLAINT: - L ANKLE INJURY DIAGNOSES: - Activity, walking, marching and hiking - Essential (primary) hypertension - Hypothyroidism, unspecified - Other and unspecified overexertion or strenuous movements or postures, initial encounter - Other intermediate (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 - Pain in left ankle and joints of left foot - Panic disorder [episodic paroxysmal anxiety] - Sprain of unspecified ligament of left ankle, initial encounter 02/22/2023 06:00 [facility] [place] TYPE: Emergency COMPLAINT: - L FLANK PAIN DIAGNOSES: - Essential (primary) hypertension - 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 - Low back pain, unspecified - Lumbago with sciatica, left side - Other diplomatic interpreter/translator (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 - Unspecified B-cell lymphoma, unspecified site 12/19/2022 15:59 [facility] [place] TYPE: Emergency COMPLAINT: - HEART PALPATATIONS DIAGNOSES: - Adverse effect of glucocorticoids and synthetic analogues, initial encounter - Anxiety disorder, unspecified - Contact with and (suspected) exposure to COVID-19 - Encounter for screening for COVID-19 - Essential (primary) hypertension - Hormone replacement therapy - 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 - Other chest pain - Other diplomatic interpreter/translator (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 12/14/2022 18:17 [facility] [place] TYPE: Emergency COMPLAINT: - NOSE BLEED DIAGNOSES: - Epistaxis - Essential (primary) hypertension - Hormone replacement therapy - Hypothyroidism, unspecified - Other intermediate (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 - Other pancytopenia 12/02/2022 17:40 [facility] [place] TYPE: Emergency COMPLAINT: - ABNORMAL LAB RESULTS DIAGNOSES: - Epistaxis - Essential (primary) hypertension - Hormone replacement therapy - Hypothyroidism, unspecified - Other diplomatic interpreter/translator (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 - Other pancytopenia - Weakness 09/11/2022 12:34 [facility] [place] TYPE: Emergency COMPLAINT: - R SHOULDER PAIN DIAGNOSES: - Essential (primary) hypertension - Pain in right shoulder INPATIENT VISIT TRACKING (12 MO.) No inpatient visits to display in this time frame [email or web address]
[2023-04-10] MEDS ORDERED: ondansetron HCL 4 MG/2 ML VIAL IV ONE (07:15)
[2023-04-10] MEDS ORDERED: HYDROmorphone HCL 1 MG/ML SYR IV PRN (07:15)
[2023-04-10 07:23] LABS: BASOPHILS 0.5 % (0-2); EOSINOPHILS 0.1 % (0-6); HEMATOCRIT 50.6 % (35.0-50.0); HEMOGLOBIN 17.6 g/dL (12.0-18.0); LYMPHOCYTES 4.3 % (24-44); MCH 30.8 (27-36); MCHC 34.7 g/dl (30-36); MCV 88.7 fl (81-99); NEUTROPHILS 91.1 % (39-80); PLATELET COUNT 190 K/uL (140-440); RBC 5.71 M/ul (4.3-5.7); RDW 14.5 (10.5-15.0)
[2023-04-10 07:39] LABS: ALBUMIN 3.1 g/dL (3.4-5.0); ALBUMIN/GLOBULIN RATIO 0.76 (1.1-2.4); ANION GAP 24.7 (7-21); BILIRUBIN, TOTAL 0.3 ng/dL (0.2-1.0); BUN/CREATININE RATIO 17.39 (6.0-28.6); CALCIUM 8.9 mg/dL (8.5-10.1); CREATININE, SERUM 1.61 mg/dL (0.55-1.02); MAGNESIUM 1.9 mg/dL (1.8-2.4); POTASSIUM 4.7 mmol/L (3.5-5.1); PROTEIN, TOTAL 7.2 g/dL (6.4-8.2)
[2023-04-10] MEDS ORDERED: SODIUM CHLORIDE 0.9% 1,000 ML IV PRN ×2 (07:45→08:15)
[2023-04-10 08:33] LABS: LACTIC ACID, BLOOD 2.1 mmol/L (0.4-2.0)
[2023-04-10 09:27] LABS: INFLUENZA B NAA NEGATIVE (NEGATIVE); RESPIRATORY SYNCYTIAL VIR NAA NEGATIVE (NEGATIVE)
[2023-04-10] MEDS ORDERED: FAMOTIDINE 20 MG/ 2 ML VIAL IV SCH (10:51)
[2023-04-10] MEDS ORDERED: KETOROLAC TROMETHAMINE 30 MG/ML VIAL IV PRN (11:00)
[2023-04-10] MEDS ORDERED: LACTATED RINGER'S 1,000 ML IV SCH (11:00)
[2023-04-10] MEDS ORDERED: ondansetron HCL 4 MG/2 ML VIAL IV PRN (11:00)
[2023-04-10] MEDS ORDERED: LACTATED RINGER'S 1,000 ML IV ONE (11:00)
[2023-04-10] MEDS ORDERED: MORPHINE SULFATE 10 MG/ML VIAL IV PRN (11:00)
[2023-04-10] MEDS ORDERED: PROCHLORPERAZINE EDISYLATE 10 MG/2 ML VIAL IV PRN (11:00)
[2023-04-10 11:12] VITALS: BP 173/101
--- NOTE | 2023-04-10 11:35 | NUR ---
Patient to the medical floor, alert and oriented x4. Patient is on room air, respirations non labored. Vital signs are stable at this time. Patient reports 9/10 abdominal pain. Patient received morphine 4mg IV and toradol 30mg IV at this time. Patient oriented to room and call light. IV fluids started at this time.
[2023-04-10] MEDS ORDERED: LORAZEPAM1 MG PO (12:17)
[2023-04-10] MEDS ORDERED: LEVOTHYROXINE88 MCG PO (12:18)
--- NOTE | 2023-04-10 14:00 | NUR ---
Admin morphine 4mg IV for reports of 7/10 abdominal pain. IV fluids infusing per provider order. No current needs. Patient denies nausea at this time.
[2023-04-10 14:29] VITALS: BP 153/91
--- NOTE | 2023-04-10 14:29 | NUR ---
SPOKE TO PATIENT ABOUT HER DISCHARGE PLAN. PATIENT LIVES WITH HER . PATIENT HAS FRIENDS AND FAMILY AVAILABLE NEEDED. 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 PATIENT CAN AFFORD HOUSING AND FOOD. PATIENT DOES NOT USE DME AND STATES SHE HAS STAIRS AND IS ABLE TO CLIMB THEM WITHOUT DIFFICULTY. PATIENT HAS LYMPHOMA AND IS IN REMISSION AT THIS TIME. PATIENT CAN DO HER OWN ADLS. PATIENT CANNOT THINK OF ANYTHING THAT CASE MANAGMENT CAN HELP WITH AT THIS TIME. PATIENT ENCOURAGED TO CONTACT AUT[employer]OTIVE INTERNET SALES CONSULTANT FOR ANY NEW ISSUES.
--- NOTE | 2023-04-10 14:45 | NUR ---
UR NOTE 04/10/23 ABDOMINAL PAIN INPATIENT EXPECTED > 2 MIDNIGHTS
[2023-04-10] MEDS ORDERED: KETOROLAC TROMETHAMINE 15 MG/ML VIAL IV PRN (15:00)
--- NOTE | 2023-04-10 15:10 | NUR ---
Admin dilaudid 0.5mg IV for 7/10 upper abdominal pain.
[2023-04-10 16:05] LABS: BILIRUBIN, URINE NEGATIVE (negative); BLOOD/HGB, URINE NEGATIVE (Negative); KETONE, URINE NEGATIVE (Negative); LEUK ESTERASE, URINE NEGATIVE (negative); NITRITE, URINE NEGATIVE (negative)
--- NOTE | 2023-04-10 16:12 | NUR ---
urine sent to lab
[2023-04-10] MEDS ORDERED: IBU-200200 MG PO (17:28)
--- NOTE | 2023-04-10 17:29 | NUR ---
MED REC COMPLETE
--- NOTE | 2023-04-10 17:32 | NUR ---
Admin dilaudid 0.5mg IV for reports of 6/10 abdominal pain. Patient denies nausea. Dr. Haile updated regarding urine output. Most recent bladder scan 220ml. Patient voided 100ml clear yellow urine since being admitted to med surg floor. No current needs at this time.
[2023-04-10 17:44] VITALS: BP 164/84
[2023-04-10] MEDS ORDERED: CEFAZOLIN SODIUM 2 GM/20 ML SYR IV SCH (18:00)
--- NOTE | 2023-04-10 18:00 | NUR ---
Admin zofran 4mg iv at this time for reported nausea.
[2023-04-10 20:17] VITALS: BP 157/93
[2023-04-11] VITALS (11 sets, daily range): BP systolic 122–140; BP diastolic 55–75
--- NOTE | 2023-04-11 02:25 | NUR ---
IN TO GET VS, PT RESTING WELL
--- NOTE | 2023-04-11 03:59 | NUR ---
PT UTILIZES CALL LIGHT, REQUESTS PRN PAIN MEDICATION. RATES PAIN 8/10 TO ABD. PRN ADMINISTERED SEE EMAR. WARM BLANKET PROVIDED. PT'S SLEEPING AT BEDSIDE. PT DENIES FURTHER NEEDS. CALL LIGHT IN REACH.
[2023-04-11 05:11] LABS: BASOPHILS 0.2 % (0-2); HEMATOCRIT 30.6 % (35.0-50.0); HEMOGLOBIN 10.9 g/dL (12.0-18.0); LYMPHOCYTES 7.2 % (24-44); MCH 31.2 (27-36); MCHC 35.7 g/dl (30-36); MCV 87.4 fl (81-99); MONOCYTES 9.5 % (0-12); NEUTROPHILS 83.1 % (39-80); PLATELET COUNT 97 K/uL (140-440); RDW 14.3 (10.5-15.0)
[2023-04-11 05:26] LABS: ALBUMIN 2.7 g/dL (3.4-5.0); ALBUMIN/GLOBULIN RATIO 0.79 (1.1-2.4); ANION GAP 14.9 (7-21); BILIRUBIN, TOTAL 0.2 ng/dL (0.2-1.0); BUN/CREATININE RATIO 23.17 (6.0-28.6); CREATININE, SERUM 0.82 mg/dL (0.55-1.02); POTASSIUM 3.9 mmol/L (3.5-5.1); PROTEIN, TOTAL 6.1 g/dL (6.4-8.2)
--- NOTE | 2023-04-11 07:30 | NUR ---
RECIEVED REPORT FROM NURSE. PT IS RESTING WITH EVEN AND UNLABORED BREATHING. IS IN ROOM ASLEEP
--- NOTE | 2023-04-11 10:10 | NUR ---
PT STATES THAT PAIN IS 9/10 AND CLIMBING. PT REQUESTED TORADOL AND MORPHINE. pT GIVEN PAIN MEDS WITH MORNING MEDS. ASSESSMENT COMPLETE NO OTHER CARES NEEDED OR REQUESTED AT THIS TIME. CALL LIGHT WITHIN REACH
[2023-04-11 12:30] LABS: HEMOGLOBIN 9.8 g/dL (12.0-18.0); MCV 89.6 fl (81-99)
[2023-04-11 12:33] LABS: BASOPHILS 0.1 % (0-2); EOSINOPHILS 0.6 % (0-6); HEMATOCRIT 28.2 % (35.0-50.0); LYMPHOCYTES 11.8 % (24-44); MCH 31.1 (27-36); MCHC 34.7 g/dl (30-36); MONOCYTES 11.6 % (0-12); NEUTROPHILS 75.9 % (39-80); PLATELET COUNT 76 K/uL (140-440); RBC 3.15 M/ul (4.3-5.7); RDW 14.2 (10.5-15.0)
--- NOTE | 2023-04-11 13:00 | NUR ---
PT JUST GOT BACKFROM IMAGING AND GOT A CT SCAN DONE PER DR HO ORDERS
[2023-04-11 14:32] LABS: ABO B; ANTIBODY SCREEN NEGATIVE; RH POSITIVE
[2023-04-11 14:36] LABS: ABO B; RH POSITIVE
[2023-04-11 15:04] LABS: IS CROSSMATCH COMPATIBLE
[2023-04-11 15:07] LABS: IS CROSSMATCH COMPATIBLE
--- NOTE | 2023-04-11 16:22 | NUR ---
patient wanted to shower i set up her bathroom and covered her IVs so they wouldnt get wet. over all shes independent.
[2023-04-11 17:27] LABS: BASOPHILS 0.3 % (0-2); EOSINOPHILS 0.7 % (0-6); HEMATOCRIT 27.9 % (35.0-50.0); HEMOGLOBIN 9.8 g/dL (12.0-18.0); LYMPHOCYTES 13.2 % (24-44); MCH 31.1 (27-36); MCHC 35.1 g/dl (30-36); MCV 88.8 fl (81-99); MONOCYTES 12.3 % (0-12); NEUTROPHILS 73.5 % (39-80); PLATELET COUNT 77 K/uL (140-440); RBC 3.14 M/ul (4.3-5.7); RDW 13.9 (10.5-15.0)
[2023-04-11 17:42] LABS: ALBUMIN 2.8 g/dL (3.4-5.0); ALBUMIN/GLOBULIN RATIO 0.82 (1.1-2.4); ANION GAP 12.6 (7-21); BILIRUBIN, TOTAL 0.2 ng/dL (0.2-1.0); BUN/CREATININE RATIO 14.45 (6.0-28.6); CALCIUM 8.3 mg/dL (8.5-10.1); CREATININE, SERUM 0.83 mg/dL (0.55-1.02); POTASSIUM 3.6 mmol/L (3.5-5.1); PROTEIN, TOTAL 6.2 g/dL (6.4-8.2)
[2023-04-11 17:55] LABS: INR 1.1 (0.80-1.30); PROTIME 13.5 Sec (11.2-14.2)
--- NOTE | 2023-04-11 20:33 | NUR ---
2009 - I UNIT PLALETS STARTED, RH IV SITE. PROCEDURE EXPOLAINED, NO QUESTIONS. 2032 - NO S.SX ADVERSE REACTION TO PLALETES, RATE DECREAED TO HER COMOFRT. VS COOP WITH ASSESSMENT. ON ROOM AIR. LUNGS CLEAR, BILAT, LBM 04/09, AND TENDER, SLIGHT DISTENTION, STATED NORMAL. INDEPENDENT IN ROOM SL l HAND PATENT. wAS MEDICATED ERARLIER WITH MORPHINE 4MG IV C/O 08/09 ABD PAIN
[2023-04-11 23:12] LABS: BASOPHILS 0.3 % (0-2); EOSINOPHILS 0.8 % (0-6); HEMATOCRIT 26.1 % (35.0-50.0); HEMOGLOBIN 9.1 g/dL (12.0-18.0); LYMPHOCYTES 13.2 % (24-44); MCHC 34.9 g/dl (30-36); MCV 88.9 fl (81-99); MONOCYTES 14.9 % (0-12); NEUTROPHILS 70.8 % (39-80); PLATELET COUNT 79 K/uL (140-440); RBC 2.94 M/ul (4.3-5.7); RDW 13.9 (10.5-15.0)
--- NOTE | 2023-04-11 23:21 | NUR ---
2124 - plalets completed, no s/sx adverse reaction. watching tv. 2229 - watching tv, no c/o adverse reaction to plalets infusion. watching tv, up to br, voided, independent, back to bed. IVF infusing w/o problems
--- NOTE | 2023-04-12 01:01 | NUR ---
RESTING, NO S/SX DISTRESS, TURNS AND REPOSITIONS SELF IN BED. IVF INFUSING. SIGNIFICANT OTHER IN ROOM
--- NOTE | 2023-04-12 01:53 | NUR ---
resting, IVF infusing no s/sx distress or abd pain
--- NOTE | 2023-04-12 03:17 | NUR ---
awake, c/o 6/10 abd pain, medicated with Morsphine 4mg IV. IVF infusing R hand, SL LH patent. pt NPO does own oral care, has been up to brp, voided x1, instructed to use hat in toilet, stated understanding. Coop with assessment. abd distention , tender , faint bowel tones present. Turns and repositions self in bed
[2023-04-12 04:19] VITALS: BP 136/67
--- NOTE | 2023-04-12 04:27 | NUR ---
PT UP TO BR, C/O ABD PAIN 08/09, ABD MORE DISTENDED , SOUTH, MEDICATED WITH MORPHINE 6MG IV SHE STATED PREVIOUS PAIN MED DOSAGE NOT EFFECTIVE. TURNS AND REPOSITIONS SELF IN BED, IVF INFUSING, TOLERATING NPO
[2023-04-12 05:20] LABS: BASOPHILS 0.3 % (0-2); EOSINOPHILS 0.9 % (0-6); HEMATOCRIT 26.5 % (35.0-50.0); HEMOGLOBIN 9.3 g/dL (12.0-18.0); MCH 30.9 (27-36); MCHC 35.1 g/dl (30-36); MONOCYTES 14.5 % (0-12); NEUTROPHILS 71.3 % (39-80); PLATELET COUNT 74 K/uL (140-440); RBC 3.02 M/ul (4.3-5.7); RDW 14.1 (10.5-15.0)
--- NOTE | 2023-04-12 05:53 | NUR ---
PT AWAKES EASILY, ON ROOM AIR, COOPERATIVE WITH BLOOD DRAWS AND ASSESSMENTS. RECEIVED 1 UNIT PLALETS LAST NIGHT, TOLERATED WELL. C/O ABD PAIN AND ABD IS MORE DISTENDID WITH MORE HYPOACTIVE BOWEL TONES THAN EARLIER IN SHIFT. HAS BEEN MEDICATED WITH MORPHINE 4-6MG IV 4X'S THIS SHIFT WITH GOOD TO FAIR PAIN RELIEF. ivf INFUSING, NO C/O ADVERSE REACTION TO IV ABX. INSTRUCTED TO USE GRADUATED HAT WHEN USING BRP. STATED UNDERSTANDING. PLEASANT AND COOPERATIVE. INDEPENDENT IN ROOM, VOIDING QS. HAS BEEN NPO, DOES OWN ORAL CARE, TOLERATING WELL. SIGNIFICANT OTHER IN ROOM
--- NOTE | 2023-04-12 07:19 | NUR ---
REPORT RECEIVED FROM NIGHT RN, ALL QUESTIONS ANSWERED. PT RESTING IN BED WITH EYES CLOSED, RESPIRATIONS EVEN AND UNLABORED. CALL LIGHT IN REACH. AT BEDSIDE.
--- NOTE | 2023-04-12 09:25 | NUR ---
MORNING ASSESSMENT COMPLETE. PT C/O 11/09 UPPER ABD PAIN, GIVEN PRN MEDICATION, SEE EMAR. PT STATES SHE "FEELS WORSE TODAY" VITALS SIGNS CHECKED, CHARTED. UPPER ABD MILDLY DISTENDED, SLIGHTLY FIRM. DENIES NAUSEA AT THIS TIME. PT DENIES FURTHER NEEDS AT THIS TIME. CALL LIGHT IN REACH.
--- NOTE | 2023-04-12 09:41 | NUR ---
PATIENT GIVEN 6MG OF IV MORPHINE FOR 9/10 EPIGASTRIC PAIN.
[2023-04-12 10:01] VITALS: BP 139/68
--- NOTE | 2023-04-12 11:02 | NUR ---
PT STATES HER PAIN IS IMPROVED, DENIES NEEDS FOR INTERVENTION AT THIS TIME. DENIES FURTHER NEEDS AT THIS TIME. CALL LIGHT IN REACH.
--- NOTE | 2023-04-12 12:44 | NUR ---
PT LYING IN BED. STATES HER PAIN IS TOLERABLE AT THIS TIME. DENIES NEED FOR INTERVENTION AT THIS TIME. FULL LIQUID LUNCH AT BEDSIDE. PT "WOULD LIKET O REST" AT THIS TIME. CALL LIGHT IN REACH.
[2023-04-12 13:24] VITALS: BP 114/68
--- NOTE | 2023-04-12 13:45 | NUR ---
PT C/O 09/08 ABD PAIN, PRM MORPHINE GIVEN, SEE EMAR. PT ABLE TO TOLERATE 25% FULL LIQUID LUNCH, DENIES NAUSEA AND INCREASED DISCOMFORT AT THIS TIME. PT DENIES FURTHER NEEDS AT THIS TIME. CALL LIGHT IN REACH.
--- NOTE | 2023-04-12 15:06 | NUR ---
PT RESTING QUIETLY WITH EYES CLOSED, RESPIRATIONS EVEN AND UNLABORED. CALL LIGHT IN REACH.
--- NOTE | 2023-04-12 17:50 | NUR ---
PATIENT GIVEN 6MG OF IV MORPHINE FOR 8/10 ABD PAIN. PATIENT REPORTED THAT HER PAIN DID GO UP AFTER EATING (80%) OF MEAL. ENCOURAGE PATIENT TO TRY AND STICK TO SAVORY ITEMS.
[2023-04-12 18:03] VITALS: BP 123/63
--- NOTE | 2023-04-12 19:45 | NUR ---
Report received from Jamia GUERRA, Pt in bed watching tv, independent, up to brp, voided, back to bed, SL, no c/o pain or n/v
[2023-04-12 20:24] VITALS: BP 136/68
[2023-04-12 20:46] VITALS: BP 136/68
--- NOTE | 2023-04-12 22:47 | NUR ---
c/o abd pain, medicated with morphine 6mg iv, up to br, voiding qs, back to bed, independent in room
[2023-04-13] VITALS (9 sets, daily range): BP systolic 136–158; BP diastolic 73–92
--- NOTE | 2023-04-13 01:05 | NUR ---
awakes easily, denies c/o pain, scds off as pt is independent. significant other in room
--- NOTE | 2023-04-13 01:23 | NUR ---
awake, c/o 8/10 abd pain, abd distention upper abd present, no bm since admission. medicated with Morphine 6mg IV
--- NOTE | 2023-04-13 03:46 | NUR ---
resting, no s/sx distress, eyes closed, turns and repositions self in bed
[2023-04-13 05:39] LABS: BASOPHILS 0.6 % (0-2); EOSINOPHILS 1.3 % (0-6); HEMATOCRIT 28.1 % (35.0-50.0); HEMOGLOBIN 9.9 g/dL (12.0-18.0); LYMPHOCYTES 13.7 % (24-44); MCH 31.2 (27-36); MCHC 35.1 g/dl (30-36); MCV 88.8 fl (81-99); MONOCYTES 14.2 % (0-12); NEUTROPHILS 70.2 % (39-80); PLATELET COUNT 66 K/uL (140-440); RBC 3.16 M/ul (4.3-5.7); RDW 13.9 (10.5-15.0)
--- NOTE | 2023-04-13 05:48 | NUR ---
Medicated with Morphine 6mg IV c/o 10/09 abd pain. Pt cooperative with lab draw, In ebd, turns and repositions self
--- NOTE | 2023-04-13 05:50 | NUR ---
Pt awake, has been medicated 4X's this shift per c/o abd pain. Has stated good pain relief each time, tolerating full liquid diet well. no n/v. Noted during assessment to have an increase of upper abd distention front and to the sides. no bm since admission, SOUTH. voiding QS, Independent in room, SCDS on at begining of shift, off at this time. significant other rooming in.
[2023-04-13 06:06] LABS: ALBUMIN 2.8 g/dL (3.4-5.0); ALBUMIN/GLOBULIN RATIO 0.82 (1.1-2.4); ANION GAP 10.6 (7-21); BILIRUBIN, TOTAL 0.3 ng/dL (0.2-1.0); CALCIUM 8.5 mg/dL (8.5-10.1); CREATININE, SERUM 0.75 mg/dL (0.55-1.02); POTASSIUM 3.6 mmol/L (3.5-5.1); PROTEIN, TOTAL 6.2 g/dL (6.4-8.2)
--- NOTE | 2023-04-13 06:59 | NUR ---
Pt c/o something different and sharp pain on R side. During assessment noted that pt has a n area approx 3x4 inches down below R breast area midline that is firm and tender to touch, new to this RN. no bruising, no redness, no creapitus noted. Was medicated earlier for pain, denies needing pain meds at this tsime, Pt reassured verbally after she started crying. will notify Dr Haile of this new finding and of increased upper abd distention,
--- NOTE | 2023-04-13 08:16 | NUR ---
PT WAS LAYING IN BED SPEAKING WITH THE RN. PT REQUESTED MORE ICE WATER AND STATED THAT SHE WOULD LIKE TO TRY SOME SPRITE. BAGGAGE PORTER HEAD GOT THE PT HER REQUESTED DRINKS. PT STATES NO FURTHER COMPLAINTS OR CONCERNS. CALL LIGHT WITHIN REACH
--- NOTE | 2023-04-13 09:12 | NUR ---
WAREHOUSE SUPERVISOR 3RD SHIFT ASKED PT IF SHE WOULD LIKE FRESH LINENS. PT REFUSED SAID SHED JUST LIKE TO LAY IN BED. NO FURTHER COMPLAINTS CALL LIGHT IN REACH
--- NOTE | 2023-04-13 09:25 | NUR ---
PT RESTIN IN BED. STATES PAIN DOWN TO 7/10 AND THAT IT IS TOLERABLE AT THIS TIME.
--- NOTE | 2023-04-13 10:13 | NUR ---
MANAGER CULINARY ENTERED ROOM TO RECORD PT VITALS AND I&OS. PT IS NOW NPO. PT STATES NO COMPLAINTS AND CALL LIGHT IS WITHIN REACH
[2023-04-13] MEDS ORDERED: LORazepam 2 MG/ML VIAL IV PRN (11:00)
--- NOTE | 2023-04-13 12:24 | NUR ---
PT RESTING IN BED. STATES ATIVAN HAS HELPED DECREASE HER ANXIETY AND "HELP RELAX" HER. STATES PAIN IS 6/10, BUT THAT IT IS TOLERABLE AT THIS TIME. CALL LIGHT WITHIN REACH.
[2023-04-13 12:40] LABS: FOLATE,SERUM 8.1 ng/mL (>=5.9)
--- NOTE | 2023-04-13 12:40 | NUR ---
UR NOTE 04/13/23 CONTINUES TO REQUIRE INPATIENT TREATMENT IVF, IV MEDICATIONS, LABS, TRANSFUSIONS, NPO, BONE MARROW BIOPSY
--- NOTE | 2023-04-13 13:56 | NUR ---
EKG COMPLETE. PT RESTING COMFORTABLY IN BED. DISCUSSED PROCEDURE PLAN WITH PT, PT STATES UNDERSTANDING AND NO QUESTIONS AT THIS TIME. NO REQUESTS AT THIS TIME.
[2023-04-13 15:15] LABS: FERRITIN 241 ng/mL (13-150)
--- NOTE | 2023-04-13 15:24 | NUR ---
PT RESTING IN BED RESPIRATIONS EVEN AND UNLABORED, JUST RETURNED FROM USING RESTROOM TO VOID. PT STATES PAIN LEVEL IS TOLERABLE AT THIS TIME. WARM BLANKETS APPLIED PER REQUEST. AT BEDSIDE. NO OTHER REQUESTS IDENTIFIED AT THIS TIME.
[2023-04-13] MEDS ORDERED: propofoL 200 MG/20 ML VIAL ONE ×2 (15:25→16:15)
--- NOTE | 2023-04-13 15:27 | NUR ---
GI ASSESSMENT COMPLETE. PT STATES ABD IS TENDER TO PALPATION BUT PAIN MOSTLY LOCATED IN RUQ. BOWEL TONES HYPOACTIVE IN ALL QUADRANTS.
--- NOTE | 2023-04-13 15:48 | NUR ---
PT TO OR VIA OR TEAM.
--- NOTE | 2023-04-13 16:40 | HP ---
[facility] [address], [place] [address] Signed ADMISSION DATE: 04/10/2023 REASON FOR ADMISSION: Abdominal pain, ascites and thickened proximal small bowel. 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 She presented to the emergency room this morning with severe abdominal pain, nausea and vomiting and diarrhea that started yesterday. She had a fair amount of abdominal distention and considered to have pain 8/10. Underlying prior medical history includes Waldenstrom macroglobulinemia for which she has undergone chemotherapy. Her last episode March 05, 2022. I called her oncologist, Dr. Chávez, who advised me that the patient is considered in remission from that. Her evaluation in the emergency room included a CT scan of the abdomen, which showed some ascites as well as markedly thickened proximal small intestine (jejunum) with luminal narrowing and thickening of the bowel wall itself. Her COVID, influenza and RSV assessments were all negative. She is admitted for further evaluation and care at this time. The patient has had no abdominal surgery in the past. She denies abdominal pain previously, generally speaking. PAST MEDICAL HISTORY: Does include hypertension for which she takes lisinopril. Waldenstroms Macroglobulinemia said to be in remission. LABORATORY STUDIES: At admission showed a white count of 20.2 with hematocrit of 50.6, platelet count of 190,000. Chem profile is pending as is the urinalysis. SOCIAL HISTORY: She is accompanied by her . She works as a nurse at the [employer] as previously described. REVIEW OF SYSTEMS: She denies any shortness of breath or chest pain. She has had no hematemesis or blood per rectum. PHYSICAL EXAMINATION: Electronically Signed By: VASHTI HO MD 04/13/23 [facility] PATIENT NAME: ANNABELLA DING HISTORY AND PHYSICAL DATE OF : 69 REPORT #: [id number] PHYSICIAN: VASHTI HO MD PCP: STEPHANIE WHITE MD REPORT IS CONFIDENTIAL AND NOT TO BE RELEASED WITHOUT AUTHORIZATION [facility] [address], [place] [address] Signed GENERAL: This is an obese white woman, who is alert and oriented. Does not appear particularly systemically toxic. VITAL SIGNS: Current pulse is 108, previously 120; blood pressure 152/99, O2 saturations 100%, respiratory rate is 19. NECK: Trachea is midline. CHEST: Clear without wheeze or rhonchi. HEART: Regular without murmur. ABDOMEN: Distended and large. She does have significant tenderness throughout. EXTREMITIES: Show no clubbing, cyanosis, or edema. Lab studies as previously noted include white count 20.2, hematocrit 50.6, platelets 190,000. Chem profile pending. I have reviewed the CT scan images and the reports as provided. Notably, the lateral view does show the aorta to be well patent and the superior mesenteric artery and celiac axis appear to be patent as well. ASSESSMENT: I have reviewed her situation with Dr. Chávez, her medical oncologist who asserts that the patient is in a remission from her Waldenstrom macroglobulinemia. Her acute issue now may be a separate and distinct problem though the possibility of a "Pressley's transformation" is always a consideration. The proximal small bowel is quite markedly inflamed and edematous but does not likely represent ischemia based on the vascularity that I noted on imaging studies. Direct admission to the hospital with fluid administration, bowel rest, and so forth would be appropriate. Antibiotic therapy would be a consideration. It is unlikely that steroids would be necessary under these circumstances, having conferred with Dr. Chávez regarding the inactivity of her underlying malignancy. Stool studies will be obtained while in the hospital as she has had some diarrhea. Most likely, this does not represent a surgical problem but she does have significant tenderness. The possibility of a paracentesis to better characterize the ascites fluid would be a consideration depending on her clinical course. MD DARREN Chavarria/HARIKAL /[id number] Electronically Signed By: VASHTI HO MD 04/13/23 [facility] PATIENT NAME: ANNABELLA DING HISTORY AND PHYSICAL DATE OF : 69 REPORT #: [id number] PHYSICIAN: VASHTI HO MD PCP: STEPHANIE WHITE MD REPORT IS CONFIDENTIAL AND NOT TO BE RELEASED WITHOUT AUTHORIZATION [facility] [address] [facility] [place], [place] [address] Signed cc: MD Vashti Davis MD Russel J Nichols, MD Copies: SPENCER CHÁVEZ MD, RUSSEL J MD ~ Electronically Signed By: VASHTI HO MD 04/13/23 1640 PATIENT NAME: ANNABELLA DING HISTORY AND PHYSICAL DATE OF : 69 REPORT #: [id number] PHYSICIAN: VASHTI HO MD PCP: STEPHANIE WHITE MD REPORT IS CONFIDENTIAL AND NOT TO BE RELEASED WITHOUT AUTHORIZATION
--- NOTE | 2023-04-13 16:56 | NUR ---
PT BACK FROM O/R ALERT AND TALKATIVE, BOYFRIEND IN THE ROOM. PT AGREES SHE IS COMFORTABLE BUT WANTS A 7-UP "REAL BAD" AGREES TO STAY NPO ANTICIPATE U/S FOR POSS BELLO
--- NOTE | 2023-04-13 17:04 | NUR ---
PT HAVING U/S AT THIS TIME.
--- NOTE | 2023-04-13 17:09 | NUR ---
04/13/23 1710 Lula Doe 1619- PT ARRIVES TO PACU, LEFT LATERAL POSITION. OPA IN PLACE, MAINTAINING AIRWAY WITH JUST OPA, O2 AT 15L PER MASK. LR INFUSING TO LH IV. ABD SOFT. BIOPSY SITE TO POSTERIOR RIGHT HIP, BANDAID IN PLACE. PT NON REACTIVE TO STIMULUS AT THIS TIME. 1624- SATS 100% ON 15L PER MASK, TURNED DOWN TO 6L AT THIS TIME. OPA REMAINS IN PLACE. 1630- PT REACTIVE TO LOUD VERBAL AND TACTILE STIMULUS. FOLLOWS COMMANDS TO REMOVE OPA. O2 LEFT IN PLACE. PT THANKFUL UPON WAKING. 1632- O2 SATS REMAIN 100% ON 6L PER MASK. MOVED PT TO ROOM AIR AT THIS TIME. WILL CONTINUE TO MONITOR. 1640- PT HAS NO COMPLAINTS. DENIES PAIN AND NAUSEA. COMFORTABLE ON LEFT SIDE. CONTINUE TO MONITOR. 1650- PT TAKEN BACK TO ROOM 117 ON MED/SURG. IN ROOM WAITING. PT ALERT AND CONVERSING WITH STAFF. NO SIGNS OF DISTRESS. LR HANGING TO IV. REPORT TO ERON GUERRA AT BEDSIDE, CARE OF PT TURNED OVER AT THIS TIME.
--- NOTE | 2023-04-13 17:21 | NUR ---
U/S COMPLETE, WELL TOLERATED. PT GIVEN 7-UP AGREES SHE CONTINUES TO BE COMFORTABLE, BOYFRIEND REMAINS AT BEDSIDE
--- NOTE | 2023-04-13 18:00 | NUR ---
PT TALKING ON THE PHONE, DRINKING 7-UP. CALL LIGHT AND NEEDED ITEMS IN REACH.
--- NOTE | 2023-04-13 18:54 | NUR ---
PT CALLS REQUESTS PAIN MEDS RATES GASTRIC PAIN 7/10. BOYFRIEND REMAINS IN THE ROOM CALL LIGHT AND NEEDED ITEMS AT BEDSIDE
[2023-04-13] MEDS ORDERED: ACETAMINOPHEN 500 MG TAB PO PRN (19:15)
--- NOTE | 2023-04-13 20:20 | NUR ---
IN BED, ROOM AIR, COOPERATIVE WITH ASSESSMENT, NO FURTHER C/O UNDER R BREAST PAIN. STILL C/O RUQ PAIN, MEDICATED WITH MORPHINE 5MG IV AND ZOFRAN 4MG IV C/O FEELING NAUSEATED. IVF INFUSING, SCDS IN PLACE
--- NOTE | 2023-04-13 21:32 | EKG ---
[facility] [address] [place] [address] Signed Normal sinus rhythm Normal ECG When compared with ECG of 19-DEC-2022 16:02, premature atrial complexes are no longer present Confirmed by Jose Carter MD () on 04/13/2023 9:32:35 PM Electronically Signed By: JOSE CARTER MD 04/13/232131 PATIENT NAME: ANNABELLA DING Electrocardiogram DATE OF : 69 PHYSICIAN: JOSE CARTER MD REPORT #: [id number] REPORT IS CONFIDENTIAL AND NOT TO BE RELEASED WITHOUT AUTHORIZATION
--- NOTE | 2023-04-13 22:31 | NUR ---
Pt awake, c/o anxiety, medicated with Ativan . IVF infusing w/o problems. significant other in room, Ativan med teaching done, stated understanding
--- NOTE | 2023-04-13 23:48 | NUR ---
pT RSTING EYS CLOSED, NO S/SX DISTRESS. MEDICATED EARLIER WITH ATIVAN PER ANXIETY, EFFECTIVE, IVF INFUSING, SCDS IN PLACE, SIGNIFICANT OTHER AT BEDSIDE.
--- NOTE | 2023-04-14 02:13 | NUR ---
reasting eyes closed, no distress, IVF infusing, SCD's off
--- NOTE | 2023-04-14 03:24 | NUR ---
C/O 10/09 ABD PAIN. MEDICATED WITH MORPHINE 5MG IV. PT UP TO BRP EARLIER. VOIDS QS. REPOSITION SELF IN BED, IVF INFUSING.
--- NOTE | 2023-04-14 05:53 | NUR ---
Pt resting at this time, Room air. Has been medicated several times with Morphine 5mg IV with fair to good pain relief. Medicated x1 with Ativan per anxiety, effective, Has slept well tonight. Tolerating liquids well, was medicated x1 per feeling nauseated at begining of shift, effective. Independent in room Voiding QS. IVF infusing w/o problems
[2023-04-14 05:55] LABS: BASOPHILS 0.6 % (0-2); EOSINOPHILS 0.7 % (0-6); HEMATOCRIT 27.6 % (35.0-50.0); HEMOGLOBIN 9.8 g/dL (12.0-18.0); MCH 31.1 (27-36); MCHC 35.5 g/dl (30-36); MCV 87.6 fl (81-99); NEUTROPHILS 76.7 % (39-80); PLATELET COUNT 68 K/uL (140-440); RBC 3.15 M/ul (4.3-5.7); RDW 13.9 (10.5-15.0)
[2023-04-14 06:10] LABS: ALBUMIN 2.7 g/dL (3.4-5.0); ALBUMIN/GLOBULIN RATIO 0.77 (1.1-2.4); ANION GAP 11.7 (7-21); BILIRUBIN, TOTAL 0.4 ng/dL (0.2-1.0); BUN/CREATININE RATIO 7.69 (6.0-28.6); CALCIUM 8.7 mg/dL (8.5-10.1); CREATININE, SERUM 0.78 mg/dL (0.55-1.02); POTASSIUM 3.7 mmol/L (3.5-5.1); PROTEIN, TOTAL 6.2 g/dL (6.4-8.2)
[2023-04-14 06:29] VITALS: BP 151/79
--- NOTE | 2023-04-14 07:25 | NUR ---
PT RESTING IN BED, DISCUSSED HER CONCERNS REGARDING HER MEDICAL CONDITION AND HER DIFFICULT NIGHT. SUPPORT AND REASSURANCE GIVEN.
--- NOTE | 2023-04-14 08:06 | NUR ---
PAIN MED GIVEN FOR ABD PAIN. WILL CONTINUE TO MONITOR
[2023-04-14 09:44] VITALS: BP 144/68
--- NOTE | 2023-04-14 11:02 | NUR ---
PT STATES ANXIETY HAS DECREASED WITH MEDICATION. STATES PAIN 6/10 TO ABD AND THAT IT IS TOLERABLE AT THIS TIME. WILL CONTINUE TO MONITOR. INFORMATION GIVEN FOR PT PORTAL PER PT REQUEST.
[2023-04-14 11:37] LABS: HEP-IND THROMBOCYTOPEN PF4,IGG 0.064 OD (<=0.399)
--- NOTE | 2023-04-14 13:10 | NUR ---
DR HO IN TO SEE PT, HER SIGNIFICANT OTHER IS PRESENT. PLAN OF CARE DISCUSSED AT LENGTH ALL QUESTIONS ANSWERED. PT AGREES SHE UNDERSTANDS AND DENIES FURTHER QUESTIONS. SHE IS EATING A FULL LIQUID TRAY AT THIS TIME DENIES DICOMFORTS OR FURTHER NEEDS
--- NOTE | 2023-04-14 13:41 | NUR ---
UR NOTE 04/14/23 CONTINUES NEEDING INPATIENT CARE IVF, PAIN CONTROL, ANXIETY CONTROL, LABS, WAITING BIOPSY RESULTS, ADVANCE DIET TOLERATED
[2023-04-14 14:13] VITALS: BP 143/72
--- NOTE | 2023-04-14 14:15 | NUR ---
PT RESTING IN BED WITH SIGNIFICANT OTHER AT BEDSIDE. STATES PAIN IS TOLERABLE AT THIS TIME. REFRESHED WATER, NO OTHER REQUESTS AT THIS TIME.
--- NOTE | 2023-04-14 14:37 | NUR ---
ROUNDS. PT RECEIVING NURSING CARE. DID NOT INTERRUPT. PROVIDED SILENT PRAYER.
--- NOTE | 2023-04-14 16:25 | NUR ---
PT RESTING SUPINE SIGNIFICANT OTHER AND SMALL DOG PRESENT. PT DENIES PAIN STATES SHE'S FINE WHEN SHE'S "JUST LAYING HERE" PAINFUL WHEN SHE SITS UP. DISCUSSED ADVANCED TO REGULAR DIET AND THAT SHE MIGHT BE A LITTLE CONSERVATIVE SHE PROGRESSES. UNDERSTANDING VERBALIZED. PT DENIES NEEDS AT THIS TIME
--- NOTE | 2023-04-14 17:46 | NUR ---
PT ATE AROUND %15 OF DINNER SO FAR. STATES SHE HAS ABD PRESSURE WITH EATING. STATES PAIN LEVEL IS TOLERABLE AT THIS TIME. AT BEDSIDE.
[2023-04-14 18:56] VITALS: BP 125/91
--- NOTE | 2023-04-14 19:42 | NUR ---
RECEIVED REPORT FROM NETO @ 191. AT THIS TIME PT IN BED, WATCHING TV, STATES HER PAIN IS "6-7" BUT DENIES NEED FOR PAIN MEDICATION. WILL "WANT IT LATER".
--- NOTE | 2023-04-14 20:35 | NUR ---
PT MEDICATED WITH PRN MEDICATION. PT A/O, STATES PAIN IN MIDGASTRIC AREA, WITH MORE IN THE UPPER R Q. INDEPENDENT TO BATHROOM, IS AWARE THAT SHE NEEDS TO AMBULATE THURSDAY, OFFERED TO WALK TONIGHT, SHE SAID SHE WOULD "TOMORROW". DISCUSSED BOWEL CARE, ENCOURAGED HER TO TALK WITH DR HO IN MORNING AND INQUIRE OF BOWEL MEDICATIONS;
[2023-04-14 20:48] VITALS: BP 136/66
--- NOTE | 2023-04-14 22:03 | NUR ---
PRN ZOFRAN ADMINISTERED FOR NAUSEA. pt DENIES NEED FOR EMESIS BAG. RESTING IN BED WATCHING TV. IVF INFUSING WNL. CALL LIGHT IN REACH.
[2023-04-14 23:33] VITALS: BP 136/66
--- NOTE | 2023-04-14 23:35 | NUR ---
REPORT RECIEVED FROM GAVIN GUERRA. pt C/O 10/09 PAIN. PRN PAIN MEDICATION ADMINISTERED. pt DENIES ANY OTHER NEEDS AT THIS TIME. CALL LIGHT WITHIN REACH.
[2023-04-15] VITALS (7 sets, daily range): BP systolic 114–135; BP diastolic 64–93
--- NOTE | 2023-04-15 02:27 | NUR ---
pt RESTING IN THE BED. pt DENIES ANY OTHER NEEDS AT THIS TIME. CALL LIGHT WITHIN REACH.
--- NOTE | 2023-04-15 04:06 | NUR ---
pt CALLED AND C/O 10/09 PAIN. PRN [place] MEDS ADMINISTERED, SEE MAR. pt DENIES ANY OTHER NEEDS AT THIS TIME. CALL LIGHT WITHIN REACH.
[2023-04-15 05:26] LABS: BASOPHILS 0.4 % (0-2); EOSINOPHILS 0.8 % (0-6); HEMATOCRIT 26.9 % (35.0-50.0); HEMOGLOBIN 9.5 g/dL (12.0-18.0); LYMPHOCYTES 14.6 % (24-44); MCHC 35.1 g/dl (30-36); MCV 88.2 fl (81-99); MONOCYTES 11.8 % (0-12); NEUTROPHILS 72.4 % (39-80); PLATELET COUNT 66 K/uL (140-440); RBC 3.05 M/ul (4.3-5.7); RDW 13.8 (10.5-15.0)
--- NOTE | 2023-04-15 07:31 | NUR ---
VERBAL REPORT RECEIVED FROM CHARLIE LINDER. PT AWAKE AND ALERT IN BED, WATCHES TV, CALL LIGHT IN REACH, NO REQUESTS AT THIS TIME.
--- NOTE | 2023-04-15 08:30 | NUR ---
PT REPORTS NAUSEA AND PAIN, MORPHINE, TYLENOL AND COMPAZINE RECEIVED ORDERED, SEE EMAR.
[2023-04-15 09:24] LABS: HAPTOGLOBIN 213 mg/dL (30-200); IRON BINDING CAPACITY TOTAL 257 ug/dL (240-450); IRON,SERUM OR PLASMA 61 ug/dL (28-170); TRANSFERRIN SATURATION 24 %sat (20-50)
[2023-04-15] MEDS ORDERED: DIATRIZOATE MEGLU/DIATRIZO SOD 15 ML BTL PO ONE (09:45)
--- NOTE | 2023-04-15 10:40 | NUR ---
ROUNDS. PT RECEIVING NURSING CARE. DID NOT INTERRUPT. PROVIDED SILENT PRAYER.
--- NOTE | 2023-04-15 11:06 | NUR ---
SECOND DOSE OF GASTROGRAPHIN RECEIVED.
--- NOTE | 2023-04-15 12:08 | NUR ---
PT RESTS IN BED WITH EYES CLOSED, RESP EVEN AND UNLABORED.
--- NOTE | 2023-04-15 12:15 | NUR ---
Spoke with Park and her friend. She is waiting for abd CT. No plan for dc today.
--- NOTE | 2023-04-15 13:49 | NUR ---
PT LEAVES ROOM VIS WHEELCHAIR TO CT, ESCORTED BY DIAGNOSTIC IMAGING STAFF.
--- NOTE | 2023-04-15 14:45 | NUR ---
PT BACK TO MED-SURG, ROOM 117, FROM CT.
--- NOTE | 2023-04-15 15:57 | NUR ---
MORPHINE RECEIVED FOR RIGHT ABDOMINAL PAIN, SEE EMAR. IV FLUSHED WITH 10CC OF NS, PATENT. LR INFUSION AT 85 ML/HR. IV SITE INTACT, NO REDNESS, SWELLING OR LEAKING NOTED.
--- NOTE | 2023-04-15 18:45 | NUR ---
I WENT IN TO TAKE VITALS AND SHE WAS SITTING UP IN HER BED WATCHING A SHOW WITH HER . SHE EAT ALL HER FOOD AND ASKED FOR MORE WATER. SHE HAD HER CALL LIGHT NEAR HER AND I OFFERED THEM IF THEY NEEDED ANYTHING ELSE AND THEY DIDNT.
--- NOTE | 2023-04-15 18:58 | NUR ---
MORPHINE AND TYLENOL RECEIVED FOR RIGHT ABDOMINAL PAIN, SEE EMAR. PT UP TO BATHROOM. PT REPORTS LOOSE BM X3 TODAY AFTER GASTROGRAFIN.
--- NOTE | 2023-04-15 19:25 | NUR ---
SHIFT REPORT RECEIVED FROM NETO TOM AT BEDSIDE, pt AWAKE AND RESTING IN BED, IN ROOM. IV SITE WNL, IV FLUIDS INFUSING WNL. pt APPEARS COMFORTABLE, NO NEEDS OR CONCERNS VERBALIZED BY pt OR , CALL LIGHT IN REACH. BOARD UPDATED.
--- NOTE | 2023-04-15 21:53 | NUR ---
ASSESSMENT COMPLETE, VSS AND I&O'S COLLECTED. pt REPORTS HER PAIN CONTINUES TO IMPROVE, STATING, "IT'S PROBABLY LIKE BETWEEN A 5 OR 6". pt CONTINUES BY STATING, "I'M FEELING LESS DISTENDED AND MORE COMFORTABLE". pt DENIES NAUSEA. IV SITE WNL, FLUSHES EASILY, NEW BAG IV FLUIDS INFUSING DIRECTED. SCD'S IN PLACE. IN ROOM, SNACKS PROVIDED. NO FURTHER NEEDS, CALL LIGHT IN REACH.
--- NOTE | 2023-04-15 22:16 | NUR ---
PT VISITOR CAME TO DESK TO REQUEST 2 SPRITES, ICE AND STRAW. GIVEN TO PT.
--- NOTE | 2023-04-15 23:31 | NUR ---
ROUNDED ON pt, pt AWAKE AND RESTING IN BED, WATCHING TV. pt DENIES NEEDS OR CONCERNS, CALL LIGHT IN REACH. UNMEASURED VOID X1 NOTED, HET NOW IN PLACE FOR IMPROVED MEASUREMENT, WAS LAYING ON THE FLOOR. EDUCATION PROVIDED, pt VERBALIZED UNDERSTANDING. IV SITE WNL, FLUIDS INFUSING DIRECTED.
[2023-04-16] VITALS (7 sets, daily range): BP systolic 141–164; BP diastolic 67–77
--- NOTE | 2023-04-16 00:20 | NUR ---
REPORT RECIEVED FROM SELWYN GUERRA. pt RESTING IN THE BED. RR EVEN AND UNLABORED. CALL LIGHT WITHIN REACH.
--- NOTE | 2023-04-16 00:30 | NUR ---
report given to elliott partida, elliott partida to take over pt care at this time. questions answered.
--- NOTE | 2023-04-16 02:47 | NUR ---
pt RESTING IN THE BED WITH EYES CLOSED. RR EVEN AND UNLABORED. CALL LIGHT WITHIN REACH.
--- NOTE | 2023-04-16 04:10 | NUR ---
pt RESTING IN THE BED WITH EYES CLOSED. RR EVEN AND UNLABORED. CALL LIGHT WITHIN REACH.
[2023-04-16 05:34] LABS: HEMATOCRIT 27.3 % (35.0-50.0); HEMOGLOBIN 9.6 g/dL (12.0-18.0); MCH 30.7 (27-36); MCHC 35.2 g/dl (30-36); MCV 87.4 fl (81-99); PLATELET COUNT 67 K/uL (140-440); RBC 3.13 M/ul (4.3-5.7)
[2023-04-16 05:47] LABS: ALBUMIN 2.7 g/dL (3.4-5.0); ALBUMIN/GLOBULIN RATIO 0.75 (1.1-2.4); ANION GAP 11.9 (7-21); BILIRUBIN, TOTAL 0.4 ng/dL (0.2-1.0); BUN/CREATININE RATIO 8.97 (6.0-28.6); CALCIUM 8.8 mg/dL (8.5-10.1); CREATININE, SERUM 0.78 mg/dL (0.55-1.02); POTASSIUM 3.9 mmol/L (3.5-5.1); PROTEIN, TOTAL 6.3 g/dL (6.4-8.2)
--- NOTE | 2023-04-16 05:57 | NUR ---
ASSESSMENT AND VITAL SIGNS DONE. pt CALLED FOR NAUSEA AND PAIN MEDICATION. PRN PAIN MEDS AND [place] MED ADMINISTERED, SEE MAR. WATER REFRESHED. pt DENIES ANY OTHER NEEDS AT THIS TIME. CALL LIGHT WITHIN REACH.
[2023-04-16 06:02] LABS: BANDS, MANUAL DIFF 9; LYMPHOCYTES, MANUAL DIFF 24; MONOCYTES, MANUAL DIFF 3; NEUTROPHILS, MANUAL DIFF 64
--- NOTE | 2023-04-16 07:30 | NUR ---
CORRECT TIME 0720 PT STANDING AT BESIDE. PT REPORTS NO PAIN EXEPT FOR FEELING STIFF FROM LAYING DOWN. PROVIDED PT WATER. NO OTHER NEEDS AT THIS TIME. CALL LIGHT WITH IN REACH. INDEPENDENT IN ROOM.
--- NOTE | 2023-04-16 08:03 | NUR ---
PHLEBOTOMY SPECIALIST ENTERED ROOM TO GREET PT AND ASSIST WITH ANY NEEDS THIS MORNING. PT REFUSED AND SAID SHE WAS OKAY. PHLEBOTOMY SPECIALIST OFFERED A WARM WASHCLOTH TO PT AND PT SAID SHE WAS PLANNING ON TAKING A SHOWER TODAY SO IT WOULD NOT BE NECESSARY. PT CALL LIGHT IS WITHIN REACH NO OTHER COMPLAINTS OR CONCERNS
--- NOTE | 2023-04-16 08:21 | NUR ---
PT STANDING AT EDGE OF BED UPON SHIFT CHANGE. IV FLUIDS INFUSING ORDERED. PT REPORTS PAIN IMPROVED, CURRENTLY 07/09. ICE WATER PROVIDED. CALL LIGHT WITHIN REACH. ALL PT CARE NEEDS MET AT THIS TIME.
--- NOTE | 2023-04-16 09:22 | NUR ---
PT C/O 10/09 PAIN DULL ACHE AT THIS TIME BUT CLIMBING DESPITE THE TYLENOL JUST GIVEN. PT AMBULATED SELF TO BATHROOM. BACK IN BED WITH NO ASSISTANCE NEEDED. IV MORPHINE GIVEN FOR PAIN MGMT. DENIES NAUSEA AT THIS TIME. IV FLUIDS INFUSING. ALL PT CARE NEEDS MET AT THIS TIME. CALL LIGHT WITHIN REACH.
[2023-04-16] MEDS ORDERED: POLYETHYLENE GLYCOL 3350 1 PACKET PO SCH (10:10)
[2023-04-16] MEDS ORDERED: OXYCODONE HCL 5 MG TAB PO PRN (10:15)
--- NOTE | 2023-04-16 11:40 | NUR ---
ROUNDS. PT RECEIVING NURSING CARE. DID NOT INTERRUPT. PROVIDED SILENT PRAYER.
--- NOTE | 2023-04-16 11:52 | NUR ---
UR NOTE 04/16/23 CONTINUES TO RECEIVE INPATIENT CARE LOW FAT DIET, TRANSITION IV TO ORAL PAIN MEDICATIONS, AMBULATION WAITING BONE MARROW BIOPSY RESULTS MONITOR LABS PLT COUNT 67 SLOW IMPROVEMENTS
--- NOTE | 2023-04-16 12:27 | NUR ---
PT LAYING IN BED WATCHING TV AT THIS TIME. LUNCH PROVIDED AT BEDSIDE AT THIS TIME. PT APPEARS TO HAVE TAKEN SHOWER AND IS FEELING BETTER, STATES PAIN IS 6/10. IV FLUIDS INFUSING. ALL PT CARE NEEDS MET AT THIS TIME, CALL LIGHT WITHIN REACH.
--- NOTE | 2023-04-16 12:40 | NUR ---
Spoke with Park. She expresses frustration as she does not know what has caused her to be ill. Encouraged her to discuss this with Dr. Howard and Dr. Haile. Gave pt a coloring book and colored pencils. We discussed there are times when a definite answer is not found to diagnose a problem. Pt states she is aware of this. She does state she feel better today.
--- NOTE | 2023-04-16 12:50 | NUR ---
PT COMPLETED 100% OF LUNCH, C/O INCREASED PAIN AFTER EATING. PRN PAIN MEDS NOT DUE AT THIS TIME. PT INFORMED AND UNDERSTANDS WILL GO BACK WHEN DUE. IV FLUIDS INFUSING. ALL PT CARE NEEDS MET AT THIS TIME, SLEEPING ON COUCH. CALL LIGHT WITHIN REACH.
--- NOTE | 2023-04-16 13:36 | NUR ---
CORRECT TIME 1215 PT SHOWERED INDEPENDENTLY. IV DRESSING WAS CHANGED. PT EATING LUNCH WITH CALL LIGHT IN REACH.
--- NOTE | 2023-04-16 14:08 | NUR ---
ASSISTED PT IN WALKING AROUND THE UNIT. PT DID NOT COMPLAIN OF ANY ABNORMAL PAIN, JUST SOME DIZZINESS. WE WALKED ONE LAP AROUND THE UNIT AND THEN PT LAID BACK DOWN IN HER BED. CALL LIGHT WITHIN REACH
--- NOTE | 2023-04-16 17:15 | NUR ---
AT BEDSIDE TALKING TO PT/FAMILY. PT AMBULATED TO BATHROOM AFTERWARDS WITH IV POLE. PT WILL BE NPO AT MIDNIGHT, HIDA SCAN IN THE MORNING AT 0800. NO OPIATES FOR 12 HOURS TO COMPLETE SCAN. PT INFORMED AND UNDERSTANDS ALL WE HAVE IS TYLENOL FOR PAIN MGMT, STATES SHE WILL DO WHAT SHE HAS TO DO. CALL LIGHT WITHIN REACH, ALL PT CARE NEEDS MET. NPO SIGN HUNG OUTSIDE PT DOOR FOR MIDNIGHT.
--- NOTE | 2023-04-16 18:20 | NUR ---
PT RESTING IN BED, WATCHING TV. SPOUSE IS ON THE COUCH AT THIS TIME. PT C/O 5/10 HEADACHE AT THIS TIME, PRN TYLENOL GIVEN. PT UNDERSTANDS NO OPIATES AFTER 1999, NPO AT MIDNIGHT, NO ISSUES AT THIS TIME. IV FLUIDS INFUSING. VS STABLE. ALL PT CARE NEEDS MET AT THIS TIME, CALL LIGHT WITHIN REACH.
--- NOTE | 2023-04-16 19:10 | NUR ---
REPORT RECIEVED FROM DIMAS GUERRA. pt RESTING IN THE BED. pt DENIES ANY NEEDS AT THIS TIME. CALL LIGHT WITHIN REACH.
--- NOTE | 2023-04-16 19:55 | NUR ---
ASSESSMENT AND VITAL SIGNS DONE. pt C/O 09/08 PAIN. PRN PAIN MEDS ADMINISTERED. pt STATES RUQ IS TENDER UPON TOUCH. BOWEL TONES ARE ACTIVE. pt DENIES ANY OTHER NEEDS AT THIS TIME. CALL LIGHT WITHIN REACH.
--- NOTE | 2023-04-16 21:20 | NUR ---
pt CALLED. IV PUMP ALARMING. pt RESTING IN THE BED. pt DENIES ANY OTHER NEEDS AT THIS TIME. CALL LIGHT WITHIN REACH.
[2023-04-17 00:24] LABS: VITAMIN B1,PLASMA 7 nmol/L (4-15)
--- NOTE | 2023-04-17 00:46 | NUR ---
pt CALLED C/O 10/09 PAIN. pt C/O NAUSEA AT THIS TIME. PRN ZOFRAN ADMINISTERED. PRN PAIN MEDICATION ADMINISTERED. pt DENIES ANY OTHER NEEDS AT THIS TIME. CALL LIGHT WITHIN REACH.
--- NOTE | 2023-04-17 02:10 | NUR ---
pt RESTING IN THE BED WITH EYES CLOSED. RR EVEN AND UNLABORED. CALL LIGHT WITHIN REACH.
--- NOTE | 2023-04-17 03:49 | NUR ---
pt RESTING WITH EYES CLOSED. RR EVEN AND UNLABORED. CALL LIGHT WITHIN REACH.
[2023-04-17 05:24] LABS: HEMATOCRIT 28.8 % (35.0-50.0); HEMOGLOBIN 10.2 g/dL (12.0-18.0); MCH 30.7 (27-36); MCHC 35.5 g/dl (30-36); MCV 86.6 fl (81-99); PLATELET COUNT 66 K/uL (140-440); RBC 3.33 M/ul (4.3-5.7); RDW 14.1 (10.5-15.0)
[2023-04-17 05:37] LABS: BANDS, MANUAL DIFF 10; LYMPHOCYTES, MANUAL DIFF 20; MONOCYTES, MANUAL DIFF 5; NEUTROPHILS, MANUAL DIFF 65
[2023-04-17 05:58] VITALS: BP 148/66
--- NOTE | 2023-04-17 06:06 | NUR ---
ASSESSMENT AND VITAL SIGNS DONE. pt C/O NAUSEA. PRN NAUSEA MEDS 30 MINUTES TO EARLY. pt STATES SHE IS OK WITH WAITING. pt DENIES ANY OTHER NEEDS AT THIS TIME. CALL LIGHT WITH IN REACH.
--- NOTE | 2023-04-17 06:30 | NUR ---
ANTI NAUSEA MEDICATION ADMINISTERED. pt DENIES ANY OTHER NEEDS AT THIS TIME. CALL LIGHT WITHIN REACH.
--- NOTE | 2023-04-17 07:39 | NUR ---
Patient awake in bed, alert and oriented x4. Patient has no notable distress. IV fluids infusing per provider order. Patient aware of plan of care this morning regarding scheduled HIDA scan. Patient remains NPO.
--- NOTE | 2023-04-17 07:58 | NUR ---
Patient left med surg unit for HIDA scan.
[2023-04-17 09:48] VITALS: BP 158/71
--- NOTE | 2023-04-17 10:59 | NUR ---
ROUNDS. PT EXPRESSED HOPEFULNESS; POSITIVITY; FRUSTRATION WITH LACK OF ANSWERS BUT CONFIDENCE IN CARE. LISTENED EMPATHETICALLY; PROVIDED SUPPORTIVE PRESENCE; LEFT GUIDEPOST WITH CONTACT CARD AND PRAYER CARD. PROVIDED PRAYER. PT EXPRESSED APPRECIATION.
--- NOTE | 2023-04-17 13:00 | NUR ---
Spoke with Park. She states she had a HIDA scan today. Remains frustrated as she does not know why she has problems she's been having. 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 She denies needs at this time from CM.
[2023-04-17 13:20] LABS: ALBUMIN/GLOBULIN RATIO 0.94 (1.1-2.4); ANION GAP 14.2 (7-21); BILIRUBIN, TOTAL 0.5 ng/dL (0.2-1.0); BUN/CREATININE RATIO 8.98 (6.0-28.6); CALCIUM 8.8 mg/dL (8.5-10.1); CREATININE, SERUM 0.89 mg/dL (0.55-1.02); POTASSIUM 4.2 mmol/L (3.5-5.1); PROTEIN, TOTAL 6.2 g/dL (6.4-8.2)
[2023-04-17 13:26] VITALS: BP 146/73
--- NOTE | 2023-04-17 14:16 | NUR ---
ADMIN TYLENOL 1000MG PO FOR 5/10 ABDOMINAL PAIN.
--- NOTE | 2023-04-17 15:27 | NUR ---
PATIENT IS ON A LOW-FAT DIET NOW. EXPLAINED THAT SOME OF HER MEALS WILL NEED TO BE MODIFIED EITHER IN THE AMOUNT OR WITH A SUBSTITUTION DUE TO THE HIGH FAT CONTENT IN THE WHOLE MEAL. SHE HAS GOOD UNDERSTANDING AND APPRECIATED ME EXPLAINING THIS TO HER. I ALSO MENTIONED THAT A FEW ITEMS ON THE HEART HEALTHY MENU (WHICH IS THE CLOSEST WE HAVE A LOW-FAT MENU) ARE TOO HIGH SO I CROSSED THEM OFF. HER SIGNIFICANT OTHER DID CALL TO PLACE HER DINNER ORDER AND WE DID WORK WITH THE PATIENT ON HAVING A SIDE SALAD INSTEAD OF A PIGEON FANCIER SALAD IN ADDITION TO THE OTHER ITEMS ORDERED. RD WILL FOLLOW UP ON THURSDAY IF PATIENT IS STILL HERE.
[2023-04-17 17:28] VITALS: BP 152/73
--- NOTE | 2023-04-17 18:46 | NUR ---
Patient reports tolerable abdominal pain at this time. Pt continues to tolerate her diet well, denies nausea. No current needs, personal supplies and call light within reach.
[2023-04-17 18:52] VITALS: BP 152/73
--- NOTE | 2023-04-17 19:16 | NUR ---
SHIFT REPORT RECEIVED FROM BARRERA RN, PT AWAKE AND ALERT, WITHOUT REQUESTS AT THIS TIME, AT BEDSIDE. PLAN OF CARE DISCUSSED.
[2023-04-17 19:50] VITALS: BP 149/64
--- NOTE | 2023-04-17 19:50 | NUR ---
RN CALLED TO ROOM, PT UPSET, STATES SHE GOT UP TO BR TO VOID UPON RETURNING TO BED SHE REPORTS SHE SAT ON SIDE OF BED PREPARING TO LAY DOWN AND MID WAY LAYING DOWN HAD SHARP PAIN IN UPPER ABDOMIN SO JUST FEEL INTO BED, PT TEARFUL AND UPSET, STATING PAIN ABOUT 10/10 ACROSS UPPER ABD, VS DONE AND STABLE, ABDOMIN GENTLY PALPATED, SOFT BUT TENDER IN UPPER QUADRANTS, NEX PAIN MED DUE APPROX 2200, RN DISCUSSED SHE COULD CALL DR HO, PT OFFERED ATIVAN, PT AGREES TO THIS FIRST BEFORE CALLING MD, PT MEDICATED WITH ATIVAN PER ORDER IV, SUPPORT GIVEN, AT BEDSIDE, PT CALMING AFTER A FEW MINUTES.
--- NOTE | 2023-04-17 20:35 | NUR ---
PT RESTING CALMLY, ALERT, REPORTS SHE IS FEELING BETTER NOW, PT STATES SHE WOULD LIKE HER PAIN MEDICATION AT 2200 WHEN DUE BUT FEELS SHE IS DOING OK NOW, REMAINS AT BEDSIDE AND SUPPORTIVE.
--- NOTE | 2023-04-17 22:07 | NUR ---
PT ASLEEP, RESP EVEN AND REG, AWAKEN PER EARILIER REQUEST, PT STATES SHE WOULD STILL LIKE HER PAIN MED FOR PAIN 10/09, MEDICATED WITH OXYCODONE PER ORDER, PT WITHOUT FURTHER REQUESTS, IVF INFUSING WELL. NEW BAG OF LR HUNG AND INFUSING PER ORDER.
[2023-04-18] VITALS (9 sets, daily range): BP systolic 91–154; BP diastolic 51–78
--- NOTE | 2023-04-18 00:01 | NUR ---
PT APPEARS TO SLEEP, RESP EVEN AND REG, WITHOUT SIGNS OF DISTRESS.
--- NOTE | 2023-04-18 02:15 | NUR ---
PT CONTINUES TO SLEEP, RESP EVEN AND REG, WITHOUT DISTRESS.
--- NOTE | 2023-04-18 04:25 | NUR ---
RN CALLED TO ROOM, PT REQUESTING PAIN MED FOR UPPER ABD PAIN 10/09, MEDICATED WITH OXYCODONE PER ORDER, VS DONE AND STABLE, PT MORE RELAXED AT THIS TIME, ATTEMPTING TO REST, VOIDING WELL. IVF INFUSING WELL.
[2023-04-18 05:30] LABS: BASOPHILS 0.3 % (0-2); EOSINOPHILS 0.6 % (0-6); HEMOGLOBIN 10.5 g/dL (12.0-18.0); NEUTROPHILS 73.1 % (39-80)
[2023-04-18 05:34] LABS: HEMATOCRIT 29.1 % (35.0-50.0); LYMPHOCYTES 16.3 % (24-44); MCH 31.1 (27-36); MCV 86.5 fl (81-99); MONOCYTES 9.7 % (0-12); PLATELET COUNT 54 K/uL (140-440); RBC 3.36 M/ul (4.3-5.7); RDW 14.3 (10.5-15.0)
[2023-04-18 05:50] LABS: ALBUMIN/GLOBULIN RATIO 0.79 (1.1-2.4); BILIRUBIN, TOTAL 0.5 ng/dL (0.2-1.0); BUN/CREATININE RATIO 8.6 (6.0-28.6); CREATININE, SERUM 0.93 mg/dL (0.55-1.02); PROTEIN, TOTAL 6.8 g/dL (6.4-8.2)
--- NOTE | 2023-04-18 06:35 | NUR ---
PT RESTING QUIETLY, RESP EVEN AND REG, WITHOUT REQUESTS.
--- NOTE | 2023-04-18 07:46 | NUR ---
PT RESTING IN BED THIS MORNING WATCHING TV. SLEEPING IN ROOM ON COUCH. IV FLUIDS INFUSING. PT REPORTS PAIN MANAGEABLE AT 6/10 AT THIS TIME. PT IS TEARFUL THIS MORNING ABOUT NOT FINDING ANYTHING, ASKED ABOUT HER PLT COUNT THIS MORNING WHICH WENT FROM 66 TO 54, REALLY WANTS TO HAVE DISCUSSION WITH MD ON NEXT STEPS THIS MORNING. PT PROVIDED HOT COFFEE THIS MORNING. CALL LIGHT WITHIN REACH. ALL PT CARE NEEDS MET AT THIS TIME.
--- NOTE | 2023-04-18 08:16 | NUR ---
PT WAS SITTING UP IN BED SPEAKING ON THE PHONE. IRONMOLDER PEAKED HER HEAD IN AND ASKED PT IS SHE NEEDED ANYTHING THIS MORNING. PT REFUSED AND REQUESTED PRIVACY WHILE ON THE PHONE. IRONMOLDER SAW CALL LIGHT WAS WITHIN REACH
--- NOTE | 2023-04-18 10:42 | NUR ---
BREAKER MECHANIC ENTERED ROOM TO RECORD VS AND I&OS. PT STATED NO COMPLAINT OR CONCERNS. CALL LIGHT IS WITHIN REACH
[2023-04-18] MEDS ORDERED: BORTEZOMIB SUB-Q (12:05)
[2023-04-18] MEDS ORDERED: TRUXIMA10 MG/1 ML IV (12:06)
[2023-04-18] MEDS ORDERED: CETIRIZINE HCL10 MG PO (12:09)
[2023-04-18] MEDS ORDERED: ONDANSETRON HCL8 MG PO (12:09)
[2023-04-18] MEDS ORDERED: NON-ASPIRIN PA325 MG PO (12:16)
--- NOTE | 2023-04-18 13:40 | NUR ---
PT RESTING IN BED WATCHING TV. HAD A GOOD LUNCH 80%, ICE WATER REFILLED FOR PT. VS STABLE. TOWELS SETUP IN THE BATHROOM FOR PT TO SHOWER. PAIN REPORTED AT 6/10 AT THIS TIME DIFFUSELY THROUGH UPPER LEFT/RIGHT QUADRANTS AT THIS TIME. CALL LIGHT WITHIN REACH, ALL PT CARE NEEDS MET AT THIS TIME. NPO AT MIDNIGHT SIGN POSTED OUTSIDE ROOM ON DOOR.
--- NOTE | 2023-04-18 15:31 | NUR ---
PT RESTING IN BED WATCHING TV. ALL PT CARE NEEDS MET AT THIS TIME. ENCOURAGE PT TO AMBULATE THE HALLWAYS. CALL LIGHT WITHIN REACH.
--- NOTE | 2023-04-18 16:43 | NUR ---
PT RESTING IN BED WATCHING TV, AT BEDSIDE WITH HER. IV FLUIDS INFUSING. PT DID TAKE SHOWER THIS AFTERNOON. PRN OXYCODONE GIVEN FOR 8/10 PAIN RIGHT/LEFT UPPER QUADRANT AND PT STATES IT IS RADIATING TO HER BACK. HEAT PACK OFFERED AND GIVEN TO PT. ICE WATER REFILLED. CALL LIGHT WITHIN REACH. ALL PT CARE NEEDS MET AT THIS TIME.
--- NOTE | 2023-04-18 18:53 | NUR ---
PT RESTING IN BED WATCHING TV, SITTING CHAIRSIDE WITH HER. IV FLUIDS INFUSING ORDERED. PT STATES PAIN IS IMPROVED, REPORTS 6/10 PAIN AT THIS TIME. CURRENTLY ALL PT CARE NEEDS MET, CALL LIGHT WITHIN REACH. ALL PT CARE NEEDS MET AT THIS TIME.
--- NOTE | 2023-04-18 19:14 | NUR ---
SHIFT REPORT RECEIVED FROM DIMAS GUERRA.
--- NOTE | 2023-04-18 19:50 | NUR ---
PT UP IN BATHROOM, WITHOUT REQUESTS, IN ROOM.
--- NOTE | 2023-04-18 21:00 | NUR ---
PT UP IN BR TO VOID, IN ROOM, PT WITHOUT REQUESTS AT THIS TIME, PT WOULD LIKE TO BE OFFERED PAIN MED AFTER 2199, PT LOOKING FORWARD TO PROCEDURE TOMORROW, HOPEFUL TO FIND OUT MORE ABOUT ORIGIN OF HER PAIN.
--- NOTE | 2023-04-18 22:11 | NUR ---
PT RESTING IN BED, MEDICATED FOR ABDOMINAL PAIN PER REQUEST FOR PAIN 09/08, DISCUSSED PLAN TO MAKE HER NPO AT MIDNIGHT, PT VOICES UNDERSTANDING, ASSESSMENT COMPLETE WITH VS, HAT REPLACED IN TOILET, DISCUSSED NEED TO MEASURE PT'S URINE, PT VOICED UNDERSTANDING, REPORTS THAT SHE DID VOID EARILIER, IV PATENT IN LEFT HAND. REMAINS AT BEDSIDE.
[2023-04-19] VITALS (9 sets, daily range): BP systolic 113–161; BP diastolic 64–83
--- NOTE | 2023-04-19 00:01 | NUR ---
PT AWAKE, REPORTS FEELING OK RIGHT NOW, IVF INFUSING WELL, PT MADE NPO FOR PROCEDURE TOMORROW PER ORDER, PT DENIES NEEDS AT THIS TIME, REMAINS AT THE BEDSIDE, SUPPORTIVE.
--- NOTE | 2023-04-19 02:00 | NUR ---
PT APPEARS TO SLEEP, RESP EVEN AND REG.
--- NOTE | 2023-04-19 04:10 | NUR ---
PT ASLEEP, AWAKEN FOR VS AND PER EARILIER PLAN OF CARE, VS STABLE, AFEBRILE, PT MEDICATED FOR PAIN 6/10 WITH OXYCODONE PER ORDER WITH SMALL SIP OF WATER, PT DENIES OTHER NEEDS, IVF INFUSING WELL PER ORDER.
--- NOTE | 2023-04-19 06:10 | NUR ---
PT SLEEPING, NO REQUESTS AT THIS TIME.
--- NOTE | 2023-04-19 06:40 | NUR ---
PT ASLEEP, RESP EVEN AND REG, NEW BAG LR HUNG AND CONTINUES TO RUN AT 85ML/HR, SITE INTACT, PT AWAKEN BRIEFLY WITHOUT COMPLAINTS AT THIS TIME.
--- NOTE | 2023-04-19 07:33 | NUR ---
RECIEVED REPORT FROM CR CERTIFIED PROFESSIONAL ERGONOMIST RN. ASSUMING CARE OF PT
[2023-04-19 09:08] LABS: BASOPHILS 0.5 % (0-2); EOSINOPHILS 0.5 % (0-6); HEMATOCRIT 29.5 % (35.0-50.0); HEMOGLOBIN 10.6 g/dL (12.0-18.0); MCHC 36.1 g/dl (30-36); MCV 85.9 fl (81-99); MONOCYTES 9.7 % (0-12); NEUTROPHILS 70.3 % (39-80); RBC 3.43 M/ul (4.3-5.7); RDW 14.1 (10.5-15.0)
[2023-04-19 09:11] LABS: PLATELET COUNT 43 K/uL (140-440)
--- NOTE | 2023-04-19 09:13 | NUR ---
DR HO IN WITH PT
[2023-04-19] MEDS ORDERED: propofoL 200 MG/20 ML VIAL ONE (09:52)
--- NOTE | 2023-04-19 10:15 | NUR ---
HAND OFF REPORT RECEIVED FROM CHARLIE NIETO. PATIENT IS HEADING DOWN TO THE OR AT THIS TIME.
--- NOTE | 2023-04-19 10:51 | NUR ---
04/19/23 Anat1 Latricia Lynn 1035- PT ARRIVES INTO PACU FROM ENDO ROOM VIA STRETCHER. PT IS REACTIVE TO TACTILE STIMULI AT THIS TIME. ORAL AIRWAY IN PLACE. PT ON 10 L OF O2 VIA MASK. PT RESPIRATIONS ARE EVEN AND UNLABORED, NO SIGNS OF DISTRESS. REPORT RECIEVED FROM VASHTI LARA. 1037- PT BEGINS TO BECOME MORE RESPONSIVE TO VERBAL STIMULI AND OPENS MOUTH FOR OPA REMOVAL. PT RESPIRATIONS EVEN AND UNLABORED, O2 >90% VIA PULSE OX AT THIS TIME. PT TITRATED TO 2L OF O2 VIA NC AT THIS TIME. 1040- PT REPORTS NO PAIN AND GOOD COUGHS AT THIS TIME. PT RESPONSIVE TO VERBAL STIMULI AND ASKS APPROPRIATE QUESTIONS AT THIS TIME. 1043- PT TITRATED TO RA AT THIS TIME, RESPIRATIONS EVEN AND UNLABORED, NO SIGNS OF DISTRESS. O2 >90% VIA CONT PULSE OX.
[2023-04-19] MEDS ORDERED: SUCRALFATE 1 GM TAB PO SCH (11:00)
--- NOTE | 2023-04-19 11:23 | NUR ---
REPORT RECEIVED FROM CLIFF Rodriguez RN. PATIENT IS LYING IN BED WITH SPOSE LYING ON THE COUCH AT THIS TIME. PATIENT VITAL SIGNS TAKEN AND ARE DOCUMENTED IN THE CHART. PATIENT STATED NO FURTHER NEEDS AT THIS TIME. CALL LIGHT AND PERSONAL BELONGINGS ARE WITHIN REACH.
--- NOTE | 2023-04-19 11:55 | NUR ---
PATIENT IS LYING IN BED ON ROOM AIR. CPOX IS IN PLACE AT THE PATIENT BEDSIDE. SCDS ARE ON WHILE THE PATIENT IS LYING DOWN. CARAFATE AND PRN OXYCODONE ADMINISTERED PER THE EMAR. PATIENT STATED PAIN WAS 7/10 IN THE ABDOMEN. PATIENT FULL ASSESSMENT COMPLETE AND DOCUMENTED IN THE CHART. CARDIAC ASSESSMENT NORMAL S1 AND S2. PATIENT RADIAL AND PEDAL PULSES ARE STRONG BILATERALLY. LUNG SOUNDS ARE CLEAR IN THE UPPER LOBES BUT DIMINISHED IN THE BASES BILATERALLY. PATIENT ON ROOM AIR. BOWEL TONES ARE ACTIVE IN ALL FOUR QUADRANTS. ABDOMEN WITH MILD DISTENTION AND TENDER UPON PALPATION. PATIENT IS INDEPENDENT IN THE ROOM. PATIENT WITH NO COMPLAINTS OF NUMBNESS AND TINGLING AT THIS TIME. SENSATION INTACT. PATIENT STATED NO FURTHER NEEDS AT THIS TIME. CALL LIGHT AND PERSONAL BELONGINGS ARE WITHIN REACH.
--- NOTE | 2023-04-19 12:35 | NUR ---
PATIENT SECOND SET OF POST OP VITAL SIGNS TAKEN AND DOCUMENTED IN THE CHART. PATIENT CALL LIGHT IS NOT WORKING. RN TOOK PATIENT A NEW CALL LIGHT AND IT IS NOW PLUGGED IN AND WORKING. PATIENT STATED NO FURTHER NEEDS AT THIS TIME. CALL LIGHT AND PERSONAL BELONGINGS ARE WITHIN REACH.
[2023-04-19] MEDS ORDERED: NITROGLYCERIN PACKET TOP ONE (12:45)
--- NOTE | 2023-04-19 14:30 | NUR ---
PATIENT IS SITTING IN BED WITH THE HOB OF ELEVATED. PATIENT IS AT THE BEDSIDE AND LYING IN THE RECLINER. LAST SET OF POST OP VITAL SIGNS ARE TAKEN AND DOCUMENTED IN THE CHART. PATIENT IV SITE IS CLEAN, DRY, AND INTACT. PATIENT CONTINUOUS IV FLUIDS ARE INFUSING AT THIS TIME. PATIENT RATED PAIN 5/10 AT THIS TIME IN THE ABDOMINAL REGION. PATIENT EDUCATED ON WHEN THEY LAST RECEIVED PRN PAIN MEDICATION AND THAT SHE CAN GET THAT DOSE EVERY 6 HOURS. PATIENT EXPRESSED UNDERSTANDING. BOWEL TONES ARE ACTIVE IN ALL FOUR QUADRANTS. ABDOMEN IS TENDER UPON PALPATION WITH MILD DISTENTION. PATIENT STATED NO FURTHER NEEDS AT THIS TIME. CALL LIGHT AND PERSONAL BELONGINGS ARE WITHIN REACH.
--- NOTE | 2023-04-19 19:32 | NUR ---
SHIFT REPORT RECEIVED FROM AVRIL GUERRA, ASSUMING CARE OF PATIENT.
--- NOTE | 2023-04-19 19:50 | NUR ---
PT AWAKE, ALERT, DISCUSSING PROCEDURE AND VISIT WITH DR WALLACE, PT FEELS ENCOURAGED THAT PROCEDURE WAS DONE AND HOPEFUL TO FIND A REASON FOR HER ABDOMINAL PAIN CAN BE FOUND, DISCUSSED PLAN OF CARE FOR TONIGHT, NEW BAG OF LR HUNG AND INFUSING WELL PER ORDER, VS DONE AND STABLE, PT AFEBRILE.
--- NOTE | 2023-04-19 22:30 | NUR ---
PT CALLED REQUESTING PAIN MED, RN TO ROOM, DISCUSSED PAIN MED WOULD BE AVAILABLE APPROX 2400, PT VOICES UNDERSTANDING, OFFERED PT ATIVAN AND PT AGREES, PT MEDICATED PER ORDER, ASSESSMENT COMPLETED, PT REPORTED VOIDING A LITTLE BIT AGO BUT MEASURING HAT WAS NOT IN TOILET, HAT REPLACED, SCDS PLACED ON PT, SITTING AT BEDSIDE. PT REQUESTS TO BE AWAKEN AT APPROX 2400 FOR PAIN MEDICATION.
[2023-04-20] VITALS (10 sets, daily range): BP systolic 110–154; BP diastolic 53–78
--- NOTE | 2023-04-20 00:15 | NUR ---
PT ASLEEP, RESP EVEN AND REG, PT AWAKEN PER EARILIER REQUEST FOR PAIN MED AT APPROX 2400, PT DROWSY BUT ALERT, MEDICATED WITH OYXCODONE PER ORDER FOR ABDOMINAL PAIN 08/09, PT BACK TO SLEEP, RESP EVEN AND REG, IVF INFUSING WELL. CPOX READING SAT OF 97%. ASLEEP ON COUCH.
--- NOTE | 2023-04-20 02:15 | NUR ---
RN TO ROOM, PT AWAKE, STATES SHE JUST GOT UP TO BR, PT REQUESTING THAT SCDS STAY OFF AT THIS TIME, NOTED ASLEEP ON COUCH, WHEN QUESTIONED ABOUT IF SHE FEELS STEADY GETTING UP WITHOUT ASSISTANCE SHE SAID USUALLY, BUT WAS A LITTLE UNSTEADY THIS TIME, REQUESTED PT TO CALL FOR NURSE ASSIST OR STANDBY WHEN SHE GETS UP TO BR IF ASLEEP, PT AGREES, NITRO PATCH REMAINS ON RIGHT SIDE OF ABDOMEN, IV SITE PATENT, PT STATES PAIN 6/10 WHICH IS GOOD FOR HER, DENIES ADDITIONAL MEDICATION, CPOX IN PLACE,VS STABLE, AFEBRILE.SIDE RAILS UP X 2.
--- NOTE | 2023-04-20 04:08 | NUR ---
PT APPEARS TO SLEEP, RESP EVEN AND REG, IVF INFUSING WELL, WITHOUT SIGNS OF DISTRESS.
--- NOTE | 2023-04-20 05:13 | NUR ---
RN CALLED TO ROOM, PT C/O NAUSEA, MEDICATED WITH ZOFRAN 4MG PER ORDER, VS STABLE, PT RECENTLY UP TO VOID, STATES SHE WAS STABLE AMBULATING TO BR, ENCOURAGED TO CALL NURSE FOR ASSIST. PT ATTEMPTING TO REST.
[2023-04-20 05:53] LABS: ALBUMIN 3.2 g/dL (3.4-5.0); ALBUMIN/GLOBULIN RATIO 0.84 (1.1-2.4); BILIRUBIN, TOTAL 0.5 ng/dL (0.2-1.0); BUN/CREATININE RATIO 11.82 (6.0-28.6); CALCIUM 9.3 mg/dL (8.5-10.1); CREATININE, SERUM 0.93 mg/dL (0.55-1.02)
--- NOTE | 2023-04-20 06:20 | NUR ---
RN TO ROOM, PT FOUND TO BE UP IN BR ON TOILET UNDRESSED,STATES SHE WAS STEADY ON HER FEET SO DIDN'T CALL FOR HELP. ENCOURAGED TO CALL FOR ASSIST UP IF IS ASLEEP OR NOT IN ROOM, PT STATES SHE FINE, BUT WILL CALL IF NEEDED.
[2023-04-20 07:01] LABS: BASOPHILS 0.8 % (0-2); EOSINOPHILS 0.7 % (0-6); HEMATOCRIT 29.3 % (35.0-50.0); HEMOGLOBIN 10.3 g/dL (12.0-18.0); LYMPHOCYTES 23.3 % (24-44); MCH 30.6 (27-36); MCHC 35.4 g/dl (30-36); MCV 86.4 fl (81-99); MONOCYTES 9.3 % (0-12); NEUTROPHILS 65.9 % (39-80); RBC 3.38 M/ul (4.3-5.7); RDW 13.6 (10.5-15.0)
[2023-04-20 07:07] LABS: PLATELET COUNT 42 K/uL (140-440)
--- NOTE | 2023-04-20 07:25 | NUR ---
RN TO ROOM PT IN BED WITH A GOWN ON, NOTED FLOOR WET IN BR AND NEXT TO HER BED, NOT IN ROOM, PT STATES SHE TOOK A SHOWER AND GOT BACK TO BED, PT WANTING TO MAKE A PHONE CALL TO HER , ASSISTED IN FINDING HER PHONE, PT TAKING ON PHONE, REPORT TO AVRIL GUERRA, DISCUSSED CONCERNS ABOUT PT GETTING UP ON HER OWN AND NOT ASKING FOR HELP ALSO THAT SHE TOOK A SHOWER UNATTENDED, SAFETY HAZARDS WITH WET FLOOR AND LOW PLATLETS. AVRIL GUERRA WILL CONTINUE DISCUSSION WITH PT, POSSIBLE MOVE TO BE CLOSER TO NURSES STATION.
--- NOTE | 2023-04-20 08:25 | NUR ---
TC TO OR CHARGE, WENDY PITTS RN REPORTS DR HO IN OR, CRITICAL LAB VALUE OF PLATLETS OF 42 REPORTED TO HONG GUERRA WHO WILL TELL DR HO.
--- NOTE | 2023-04-20 09:37 | NUR ---
PATIENT GIVEN .5MG OF IV ATIVAN FOR ANXIETY. PATIENT OTHERWISE DENIES NEEDS AT THIS TIME.
--- NOTE | 2023-04-20 10:38 | NUR ---
UR CLINICAL REVIEW 2 [place] RULE FOR [facility] 04/10/23 @ 1039 YES ORDER MATCHES REF#[id number] AWAITING STABLE PLATELET COUNT TO PROCEED TO OR ADMITTED FROM HOME, DISCHARGE HOME WHEN STABLE 04/23/23
--- NOTE | 2023-04-20 11:00 | NUR ---
ADMINISTERED PAIN MEDICATION PER MAR. PATIENT UP IN BATHROOM, STATES " I FEEL LIKE THE NITRO PASTE IS REALLY HELPING THE PAIN, BUT WHEN I DO TOO MUCH IT REALLY GETS TO HURTING" PATIENT BACK TO BED. PATIENT WATCHING TV WITH THAT IS CONVERSING WITH HER AT THE BEDSIDE. PATIENT DAUGHTER ALSO VISITING. PATIENT APPEARS TO BE IN GOOD SPIRITS, AND EXCITABLE.
--- NOTE | 2023-04-20 13:06 | NUR ---
PLACED NEW NITRO PACE TO ABDOMEN, REMOVED OLD NITRO FROM ABDOMEN. PATIENT FEELING STOMACH NAUSEA, ADMINISTERED ZOFRAN PER MAR. STOMACH SOFT, BOWEL TONES ACTIVE. PATIENT ACTIVE IN ROOM. PAIN WELL CONTROLLED, PO PAIN MEDICATION APPEARS TO BE EFFECTIVE 2/10 ON PAIN SCALE.
[2023-04-20] MEDS ORDERED: NITROGLYCERIN PACKET TOP SCH (14:00)
--- NOTE | 2023-04-20 14:00 | NUR ---
PATIENT TRANSFERED TO ROOM 108, CONCERNS WITH PATIENT GETTING UP INDEPENDANTLY WITH CRITICALLY LOW PLATELETS. ATTEMPTED TO TURN BED ALARM ON, PATIENT WAS ABLE TO TURN IT OFF. WHEN IV PUMP IS BEEPING, PATIENT WILL TURN IT OFF. PROVIDED EDUCATION ON FALL PREVENTION. ROOM 108 IS CLOSER TO NURSES STATION. PATIENT AGREED, AND VERBALIZED UNDERSTANDING WITH THE RISKS OF FALLING.
[2023-04-20] MEDS ORDERED: DEXAMETHASONE SOD PHOS 10 MG/ML VIAL IV SCH (14:54)
[2023-04-20] MEDS ORDERED: DILUENT IV ONE (15:30)
[2023-04-20] MEDS ORDERED: PRO IV ONE (15:30)
[2023-04-20] MEDS ORDERED: IGA IV ONE (15:30)
[2023-04-20] MEDS ORDERED: IMMUN GLOB IV ONE (15:30)
--- NOTE | 2023-04-20 18:49 | NUR ---
TITRATED IMMUN GLOB TO 60 ML/HR FOR 30 MIN. PATIENT TOLERATING INFUSION. VS STABLE.
--- NOTE | 2023-04-20 19:44 | NUR ---
TITRATED TO 120 ML FOR 30 MIN. REPLACED NITRO PACED TO ABDOMEN. PATIENT TOLERATING INUFSION WELL. VS WNL.
--- NOTE | 2023-04-20 20:04 | NUR ---
REPORT RECEIVED FROM DAY SHIFT RN. PT LYING IN BED ALERT AND ORIENTED. DENIES NEEDS. WHITE BOARD UPDATED. CALL LIGHT IN REACH.
--- NOTE | 2023-04-20 20:33 | NUR ---
PT UP TO SHOWER INDEPENDENTLY. EDUCATION PROVIDED FOR PT TO CALL FOR ASSISTANCE. PT VERBALIZES UNDERSTANDING. VS OBTAINED, WNL. IMMUN GLOB TITRATED PER ORDER AT 240 ML/HR. PT SUE WELL. DENIES FURTHER NEEDS. CALL LIGHT IN REACH.
--- NOTE | 2023-04-20 21:08 | NUR ---
BALBIR COMPLETED. PT IN BED, VS COMPLETED. STATES SHE HASN'T NOTICED ANY UNUSUAL FEELINGS SINCE RECEIVING MEDICATION.
--- NOTE | 2023-04-20 23:04 | NUR ---
PT RESTING WITH EYES CLOSED. AWAKENS EASILY. EVENING ASSESSMENT COMPLETE. SCHEDULED MEDS ADMIN PER EMAR. PT REPORTS ABD PAIN 6/10 WHICH IS TOLERABLE AT THIS TIME. BOWEL TONES ACTIVE. ABD SOFT. NITRO PATCH IN PLACE TO RUQ. DENIES NAUSEA. IVF INFUSING WNL. SCD'S PLACED. S/O AT THE BEDSIDE. PT DENIES QUESTIONS OR CONCERNS. CALL LIGHT IN REACH.
[2023-04-21 01:34] VITALS: BP 154/73
--- NOTE | 2023-04-21 01:49 | NUR ---
PT RESTING WITH EYES CLOSED. AWAKENS EASILY. SBA TO BR TO VOID. GAIT UNSTEADY AT TIMES. BACK TO BED, SUE WELL. VS OBTAINED, NWL. NITRO PATCH TO RUQ REMOVED AND NEW ONE PLACED PER ORDER. PT REPORTS ABD PAIN 5/10, BUT GREATLY IMPROVED. PRN FOR PAIN ADMIN PER EMAR. SCD'S REPLACED. NO FURTHER NEEDS. CALL LIGHT IN REACH.
[2023-04-21 04:07] VITALS: BP 154/73
--- NOTE | 2023-04-21 04:28 | NUR ---
PT RESTING IN BED WITH EYES CLOSED. RESPIRATIONS EVEN. CALL LIGHT IN REACH.
[2023-04-21 06:22] VITALS: BP 138/85
--- NOTE | 2023-04-21 06:30 | NUR ---
PT AWAKE IN BED. NO C/O PAIN OR NAUSEA. SCHEDULED MEDS ADMIN PER EMAR. VS AND I&O OBTAINED, WNL. NO NEEDS AT THIS TIME. CALL LIGHT IN REACH.
--- NOTE | 2023-04-21 06:57 | NUR ---
Report from Farhat Vargas RN. Patient alert and oriented, sitting up in bed. Call light in reach. Denies needs at this time.
--- NOTE | 2023-04-21 07:08 | NUR ---
REPORT FROM Farhat SHETH RN. PATIENT ALERT AND ORIENTED UP IN BED. ASSISTED TO MOVE TABLE CLOSER TO PATIENT. DENIES OTHER NEEDS. CALL LIGHT IN REACH.
[2023-04-21 08:09] LABS: HEMOGLOBIN 10.6 g/dL (12.0-18.0); MCHC 36.3 g/dl (30-36); MCV 85.3 fl (81-99)
[2023-04-21 08:10] LABS: PLATELET COUNT 41 K/uL (140-440)
[2023-04-21 08:58] LABS: BANDS, MANUAL DIFF 1; LYMPHOCYTES, MANUAL DIFF 19; MONOCYTES, MANUAL DIFF 2; NEUTROPHILS, MANUAL DIFF 76
--- NOTE | 2023-04-21 09:00 | NUR ---
No change in plan for CM at this time.
[2023-04-21 09:19] VITALS: BP 110/67
--- NOTE | 2023-04-21 09:42 | NUR ---
PATIENT ALERT AND ORIENTED. IV INFUSING. TITRATED UP TO 120ML/HOUR PER ORDERS. PATIENT MEDS ADMINISTERED BY AIRPLANE DISPATCHER AND INSTRUCTOR. ASSESSMENT COMPLETED AT THIS TIME. DENIES OTHER NEEDS. CALL LIGHT IN REACH. BED RAILS UP X2.
--- NOTE | 2023-04-21 10:01 | NUR ---
INTO CHECK ON PATIENT WITH MORNING CARES. PATIENT WANTS HER TO HELP HER SHOWER BEFORE SHE LEAVES. TOWELS, WASHCLOTHS AND A NEW GOWN GIVEN TO PATIENT. PATIENT ADVISED TO CALL WHEN SHE IS GETTING IN SO THAT THIS NURSE CAN GET HER BED SET UP AND ROOM CLEANED UP WHEN SHE IS IN THE SHOWER.
--- NOTE | 2023-04-21 10:14 | NUR ---
ROUNDS. PT DECLINED SPIRITUAL CARE VISIT AT THIS TIME. PROVIDED SILENT PRAYER.
--- NOTE | 2023-04-21 10:19 | NUR ---
DENIES NEEDS AT THIS TIME. CALL LIGHT IN REACH. SPOUSE IN ROOM.
--- NOTE | 2023-04-21 11:40 | PATH ---
[facility] [address] [place], [place] [address] Signed SPECIMEN(S): A PROXIMAL STOMACH BIOPSY SPECIMEN SOURCE: A. PROXIMAL STOMACH BIOPSY CLINICAL HISTORY: Pancytopenia with enteritis, ascites, mild proximal gastritis FINAL PATHOLOGIC DIAGNOSIS: Stomach, proximal, biopsy: - Gastric oxyntic mucosa with no significant pathologic changes - Negative for Helicobacter pylori with HE stains BRP MICROSCOPIC EXAMINATION: Histologic sections of all submitted blocks are examined by light microscopy. These findings, together with the gross examination, support the pathologic diagnosis. GROSS DESCRIPTION: The specimen, labeled and designated "Balwinder Gibson, proximal stomach biopsy," is received in formalin and consists of one aguilera soft tissue fragment, 0.4 cm. Entirely submitted in (A1). VB (under the direct supervision of a pathologist) The Gross Description was prepared using a voice recognition system. The report was reviewed for accuracy; however, sound-alike word errors, addition and/or deletions may occur. If there is any question about this report, please contact Client Services. ADDITIONAL NOTES: Immunohistochemical and/or in situ hybridization studies if performed in this case included appropriate positive controls that reacted as expected. This test was developed and its performance characteristics determined by [facility]. It has not been cleared or approved by the U.S. Food and Drug Administration. The FDA has determined that such clearance or approval is not necessary. This test is used for clinical purposes. It should not be regarded as investigational or for research. [facility] is certified under the Clinical Laboratory Improvement Amendments of 1988 (CLIA) as qualified to perform high complexity clinical laboratory testing. PATIENT NAME: ANNABELLA DING PATHOLOGY DATE OF : 69 REPORT #: [id number] PHYSICIAN: GLADIS ROD PCP: STEPHANIE WHITE MD REPORT IS CONFIDENTIAL AND NOT TO BE RELEASED WITHOUT AUTHORIZATION [facility] [address], [place] [address] Signed PERFORMING LABORATORY: Technical component was performed by [facility], [address] [place] [address] (CLIA# [id number]). Professional interpretation was performed by [facility] [address] [place] [phone] [id number] Diagnostician: Ck Acharya MD Pathologist Electronically Signed 04/21/2023 Copies: ~ PATIENT NAME: ANNABELLA DING PATHOLOGY DATE OF : 69 REPORT #: [id number] PHYSICIAN: GLADIS ROD PCP: STEPHANIE WHITE MD REPORT IS CONFIDENTIAL AND NOT TO BE RELEASED WITHOUT AUTHORIZATION
[2023-04-21 13:01] VITALS: BP 137/63
--- NOTE | 2023-04-21 17:22 | NUR ---
PATIENT STATES SHE IS FEELING A BIT "SHAKY." BELIEVES IT IS DUE TO IVIG. HAS HAD A DOSE OF ATIVAN RECENTLY, STATES SHE THINKS THE ATIVAN WILL HELP. INSTRUCTED TO NOTIFY STAFF IF IT DOES NOT IMPROVE. VERBALIZES UNDERSTANDING.
--- NOTE | 2023-04-21 18:45 | NUR ---
PATIENT REFUSED VITALS, RN NOTIIFIED.
--- NOTE | 2023-04-21 19:17 | NUR ---
REPORT RECEIVED FROM DAY SHIFT RN. PT LYING IN BED ALERT AND ORIENTED. DENIES NEEDS. WHITE BOARD UPDATED. CALL LIGHT IN REACH.
[2023-04-21] MEDS ORDERED: buPROPion HCL XL 150 MG TAB.XL.24H PO SCH (19:20)
[2023-04-21] MEDS ORDERED: FLUOXETINE HCL 20 MG CAP PO SCH (19:21)
[2023-04-21 20:27] VITALS: BP 118/71
[2023-04-21] MEDS ORDERED: PROPRANOLOL HCL 10 MG TAB PO SCH (21:00)
--- NOTE | 2023-04-21 21:03 | NUR ---
EVENING ASSESSMENT COMPLETE. SCHEDULED MEDS ADMIN PER EMAR. PT REPORTS ABD PAIN TOLERABLE 08/09. DENIES NAUSEA. BOWEL TONES ACTIVE. ABD SOFT. DISCUSSED HOME MEDS ORDERED BY MD. PT REPORTS SHE HAS HOME MEDS IN ROOM AND HAD TAKEN HER OWN ANTIDEPRESSANTS THIS AM. DISCUSSED WITH PT TO NOT TAKE HOME MEDS AND THE RISKS ASSOCIATED. PT VERBALIZES UNDERSTANDING. TO TAKE MEDS HOME WITH HIM NEXT TIME HE LEAVES. PT DENIES FURTHER NEEDS AT THIS TIME. CALL LIGHT IN REACH.
--- NOTE | 2023-04-21 23:31 | NUR ---
IV PUMP ALARMING. ISSUE RESOLVED. PT DENIES NEEDS. AT BEDSIDE.
[2023-04-22] VITALS (10 sets, daily range): BP systolic 100–154; BP diastolic 53–70
--- NOTE | 2023-04-22 00:55 | NUR ---
CALL LIGHT ANSWERED. PT REPORTS ABD PAIN 08/09. PRN FOR PAIN ADMIN PER EMAR. NEW BAG IVF INFUSING PER ORDER. NO FURTHER NEEDS.
[2023-04-22 05:28] LABS: HEMOGLOBIN 9.4 g/dL (12.0-18.0)
[2023-04-22 05:31] LABS: HEMATOCRIT 26.6 % (35.0-50.0); MCH 30.3 (27-36); MCHC 35.5 g/dl (30-36); MCV 85.4 fl (81-99); RBC 3.11 M/ul (4.3-5.7); RDW 13.9 (10.5-15.0)
--- NOTE | 2023-04-22 05:36 | NUR ---
[facility].
--- NOTE | 2023-04-22 05:36 | NUR ---
IV PUMP ALARMING. ISSUE RESOLVED. SCHEDULED MEDS ADMIN PER EMAR. VS AND I&O OBTAINED. NO FURTHER NEEDS.
[2023-04-22 05:37] LABS: PLATELET COUNT 34 K/uL (140-440)
[2023-04-22 05:41] LABS: ALBUMIN 2.8 g/dL (3.4-5.0); ALBUMIN/GLOBULIN RATIO 0.49 (1.1-2.4); ANION GAP 11.9 (7-21); BILIRUBIN, TOTAL 0.3 ng/dL (0.2-1.0); BUN/CREATININE RATIO 22.72 (6.0-28.6); CALCIUM 8.8 mg/dL (8.5-10.1); CREATININE, SERUM 0.88 mg/dL (0.55-1.02); POTASSIUM 3.9 mmol/L (3.5-5.1); PROTEIN, TOTAL 8.5 g/dL (6.4-8.2)
[2023-04-22 05:58] LABS: BANDS, MANUAL DIFF 1; LYMPHOCYTES, MANUAL DIFF 4; MONOCYTES, MANUAL DIFF 5; NEUTROPHILS, MANUAL DIFF 90
[2023-04-22] MEDS ORDERED: LEVOTHYROXINE SODIUM 88 MCG TAB PO SCH (06:00)
--- NOTE | 2023-04-22 06:46 | NUR ---
PT RESTING WITH EYES CLOSED. AWAKENS EASILY. SCHEDULED MEDS ADMIN. PRN FOR ANXIETY ADMIN PER REQUEST. NO FURTHER NEEDS.
--- NOTE | 2023-04-22 07:00 | NUR ---
dr smith made aware of critical platelets 34, no new orders received regarding platelets. pt tolerating low fat diet well, eating/drinking, voiding well per primary rn. telephone orders read back to dc iv fluids and saline lock pt.
--- NOTE | 2023-04-22 07:15 | NUR ---
RECEIVED REPORT FROM CHARLIE LAND. PT RESTING IN BED WITH EYES CLOSED, BREATHING EVEN AND UNLABORED. FAMILY AT THE BEDSIDE RESTING WITH EYES CLOSED WELL. CALL LIGHT WITHIN REACH, BED RAILS UP. ASSUMING CARE OF PT.
--- NOTE | 2023-04-22 07:53 | NUR ---
PT SLEEPING IN HER ROOM. TRAIN CONTROL TECHNICIAN ENTERED TO PERFORM PT ROUNDS. TRAIN CONTROL TECHNICIAN WANTED TO LET PT SLEEP. CALL LIGHT WITHIN REACH
--- NOTE | 2023-04-22 09:00 | NUR ---
No change in plan for CM. Pt denies needs.
--- NOTE | 2023-04-22 10:23 | NUR ---
PT AWAKE AND A+O X3. PT REQUESTS PRN PAIN MEDICATION, GIVEN. PT HAS HAD SHOWER THIS MORNING. PT TAKES PO MEDICATIONS WITHOUT DIFFICULTY. LUNG SOUNDS CLEAR. PT STATES THAT PAIN TODAY HAS BEEN WORSE THAN YESTERDAY, BELIEVES IT IS D/T HAVING MORE TIME BETWEEN PRN PAIN MEDICATION YESTERDAY EVENING. ABDOMEN SOFT, TENDER TO PALPATION. BOWEL TONES ARE ACTIVE, PT DENIES NAUSEA AT THIS TIME. PT VOIDING INDEPENDENTLY IN RESTROOM, NO URINARY DEVICES IN USE, PT ASSESSMENT SAYING FEC IN USE IS NOT PRESENT. PT CONTINUES TO BE ANXIOUS THIS MORNING, STATES SHE IS DEALING WITH MULTIPLE EXTERNAL STRESSORS AT THIS TIME. PT STATES NO NEEDS AT THIS TIME, CALL LIGHT WITHIN REACH, FAMILY AT THE BEDSIDE.
--- NOTE | 2023-04-22 12:45 | NUR ---
PT REQUESTING PRN ATIVAN FOR ANXIETY, GIVEN. PT DENIES ANY FURTHER NEEDS AT THIS TIME, CALL LIGHT WITHIN REACH.
--- NOTE | 2023-04-22 13:37 | OR ---
[facility] [address], [place] [address] Signed DATE OF OPERATION: 04/19/2023 SURGEON: Vashti Ho MD PREOPERATIVE DIAGNOSES: 1. Persistent epigastric and right subcostal pain. 2. 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 3. History of Waldenstrom macroglobulinemia in remission. Repeat biopsy pending. 4. Gallbladder ultrasound with sludge and CCK-HIDA test, normal ejection fraction 82% with possible reproduction of abdominal pain symptoms. POSTOPERATIVE DIAGNOSES: Mild proximal gastritis. No evidence of ulcer, neoplasm, or hemorrhage. PROCEDURE: Upper endoscopy with biopsy including CLOtest and proximal stomach. ANESTHESIA: Propofol infusion, Vashti Gil CRNA. INDICATION: This 57-year-old white woman was admitted by nh on April 10, 2023 having presented to the emergency room with severe abdominal pain, generalized peritoneal signs, a white count of 20,000, platelet count of 190,000, and hematocrit of 50.1. She was given antibiotic Ancef and Flagyl, PPI medication and fluid resuscitation. The following day, her hematocrit was 30, her white count was 10,000, and platelet count markedly diminished to approximately 95,000. Her symptoms were improved. She had persistent use of her medications, but still has significant upper abdominal pain, which was poorly localized and generalized throughout the abdomen. Her initial CT scan additionally showed marked distention and thickening of the proximal jejunum. A subsequent CT scan was performed, which showed resolution of the jejunal thickening and ascites that had been present to have been resolving. She had progressive decrease of her hematocrit to approximately 27, the white count less than 5, and platelet count progressing lower to the 60s. She underwent repeat bone marrow biopsy by Dr. Chávez, though suspicion for recurrent Waldenstrom macroglobulinemia was considered low. Her abdominal pain symptoms have improved but she still has persistent epigastric and right subcostal pain. A gallbladder ultrasound was performed, which showed some gallbladder sludge but no stones and no thickening or dilation of the gallbladder. Later CCK-HIDA test was performed, which showed an ejection fraction greater than 82% Electronically Signed By: VASHTI HO MD 04/22/23 1337 PATIENT NAME: ANNABELLA DING OPERATIVE REPORT DATE OF : 69 REPORT #: [id number] PHYSICIAN: VASHTI HO MD PCP: STEPHANIE WHITE MD REPORT IS CONFIDENTIAL AND NOT TO BE RELEASED WITHOUT AUTHORIZATION [facility] [address], [place] [address] Signed but some reproduction of right subcostal symptoms. In general terms, the probability of the gallbladder being the underlying cause of her pain was high but given her platelet count hovering in the 64,000 to 66,000 range and despite withholding putative medications that may be causing pancytopenia (antibiotics), cholecystectomy has been withheld. Though she is able to tolerate a low-fat diet, generally speaking she still has upper abdominal pain which is problematic. Her platelet count this morning is 44,000, white count 3.1 and hematocrit 28. Upper endoscopy was planned from yesterday to assure there was no peptic disease causing the problem as she is not on any prophylactic medication having withdrawn all unnecessary medicines on the possibility of drug-induced pancytopenia. On that basis, she is now to undergo upper endoscopy. She understands the risk of bleeding, infection, perforation, and so forth and wished to proceed. FINDINGS: The upper endoscopy was essentially normal. The esophagus was clearly normal. The flap valve was good. The stomach had mild proximal gastritis but no sign of neoplasm, ulceration, or other abnormality. The pylorus was normal. The duodenum throughout its entire length was normal. Biopsies at the proximal stomach with mild gastritis for both FLORENTIN and pathologic testing. DESCRIPTION OF PROCEDURE: The patient was brought to the endoscopy suite and placed in the lateral decubitus position, given propofol infusional sedation. A bite block was placed. An Olympus video upper endoscope was passed in the hypopharynx. The vocal cords and hypopharynx were normal. The scope was easily advanced into the esophagus, throughout its length it was normal. The scope was then passed to the stomach, which was insufflated with air. Rugal folds were normal. There was no sign of ulceration or neoplasm. There was no bile in the stomach. The pylorus was normal. Scope was passed through and into the duodenum which also appeared normal. The 2nd, 3rd, and even 4th portions of the duodenum were entirely normal. Celiac biopsies (duodenal biopsies) were not obtained, so as to minimize trauma in the face of significant thrombocytopenia. The scope was withdrawn and retroflexed view undertaken confirming a good flap valve. There was some mild proximal gastritis. Biopsies were obtained x2 for both FLORENTIN and pathologic testing. Hemoclips were applied to the biopsy sites to assure less chance of bleeding. The scope was straightened and withdrawn. The esophagus was re-examined and found to be normal. Scope was removed and the patient was taken to the recovery room in good condition. CONCLUDING DIAGNOSIS: It is unlikely that the mild proximal gastritis is accounting for her symptoms. However, since she is not on PPI medication or H2 jamir, we will initiate Carafate 1 g p.o. q.i.d. on empty stomach in hopes of improving some of her symptoms. Electronically Signed By: VASHTI HO MD 04/22/23 2988 PATIENT NAME: ANNABELLA DING FRANCESCA OPERATIVE REPORT DATE OF : 69 REPORT #: [id number] PHYSICIAN: VASHTI HO MD PCP: STEPHANIE WHITE MD REPORT IS CONFIDENTIAL AND NOT TO BE RELEASED WITHOUT AUTHORIZATION [address] [address] Signed MD DARREN Chavarria/MODL /[id number] cc: MD Stephanie Davis MD Copies: SPENCER CHÁVEZ MD, RUSSEL J MD ~ Electronically Signed By: VASHTI HO MD 04/22/23 1337 PATIENT NAME: ANNABELLA DING FRANCESCA OPERATIVE REPORT DATE OF : 69 REPORT #: [id number] PHYSICIAN: VASHTI HO MD PCP: STEPHANIE WHITE MD REPORT IS CONFIDENTIAL AND NOT TO BE RELEASED WITHOUT AUTHORIZATION
--- NOTE | 2023-04-22 14:30 | NUR ---
PT RESTING IN BED WITH EYES CLOSED, PT AWAKENS FOR MEDICATION DUE. PT DENIES NAUSEA, ABDOMEN CONTINUES TO BE SOFT, MILDLY DISTENDED PER PT, TENDER TO PALPATION ESPECIALLY ON L SIDE. BOWEL TONES ACTIVE. PT CONTINUES TO TOLERATE LOW FAT DIET WELL. PT STATES NO FURTHER NEEDS AT THIS TIME, CALL LIGHT WITHIN REACH.
--- NOTE | 2023-04-22 18:04 | NUR ---
Notified by student nurse that patient is feeling anxious and having heart palpitations, increased ABD pain, this RN to examine patient. BP WNL, mitral murmur heard, notified consulting Dr as present on unit. Dr Mac to bedside, examines patient, EKG ordered. Patient explains had murmur as a child, Dr Mac aware and patient starts to feel relief after assessment.
--- NOTE | 2023-04-22 18:10 | NUR ---
THIS RN SPEAKS WITH DR. WALLACE ON PHONE REGARDING PT STATUS AND ASSESSMENT AND ANXIETY. DR. WALLACE GIVES TELEPHONE ORDER FOR 25MG BENEDRYL IV ONE TIME, ORDERS ENTERED, REPEAT BACK PERFORMED.
[2023-04-22] MEDS ORDERED: diphenhydrAMINE HCL 50 MG/ML VIAL IV ONE (18:15)
--- NOTE | 2023-04-22 18:21 | NUR ---
Dr Haile updated on patient status.
--- NOTE | 2023-04-22 18:21 | NUR ---
Patient EKG results NSR. Patient states feeling relief and has no concerns at this time.
--- NOTE | 2023-04-22 19:48 | NUR ---
REPORT RECEIVED FROM DAY SHIFT RN. PATIENT RESTING IN BED WITH SIGNIFICANT OTHER AT BEDSIDE. PATIENT HAS NO CURRENT NEEDS. CALL LIGHT IN REACH.
--- NOTE | 2023-04-22 20:00 | NUR ---
PATIENT RESTING IN BED WITH EYES CLOSED. VS AND I&Os OBTAINED AND RECORDED. SCHEDULED AND PRN MEDICAITONS ADMINISTERED. IVs FLUSHED AND WNL. PATIENT UP TO BATHROOM INDEPENDENTLY TO VOID. PATIENT SIGNIFICANT OTHER IN ROOM IN CHAIR. PATIENT REPORTS NO FURTHER NEEDS. CALL LIGHT IN REACH.
--- NOTE | 2023-04-22 22:15 | NUR ---
PATIENT RESTING IN BED WITH EYES CLOSED. ASSESSMENT COMPLETE. LUNG SOUNDS CLEAR BILAT. PATIENT REPORTS 7/10 ABD PAIN. PRN PAIN MEDICATION ADMINISTERED. PATIENT HAS NO FURTHER NEEDS. CALL LIGHT IN REACH.
--- NOTE | 2023-04-22 23:39 | NUR ---
PATIENT RESTING IN BED ON BACK WITH EYES CLOSED. RESPIRATIONS EVEN AND UNLABORED. CALL LIGHT IN REACH.
--- NOTE | 2023-04-23 01:18 | NUR ---
ROUNDING ON PATIENT. PATIENT RESTING IN BED WATHCING TV. PATIENT REQUESTING HONG CRACKERS. GRAM CRACKERS PROVIDED. PATIENT HAS NO FURTHER NEEDS. CALL LIGHT IN REACH.
[2023-04-23 02:09] VITALS: BP 143/55
--- NOTE | 2023-04-23 02:20 | NUR ---
PATIENT RESTING IN BED. VS OBTAINED AND RECORDED. SCHEDULED MEDICATION ADMINISTERED. PATIENT REQUESTING PRN ANXIETY MEDICATION. MEDICAITON ADMINISTERED, SEE MAR. IV DRESSING NOT INTACT. THIS RN REPLACED IV DRESSING. IV FLUSHES WNL. PATIENT HAS NO FURTHER NEEDS. CALL LIGHT IN REACH.
--- NOTE | 2023-04-23 03:51 | NUR ---
PATIENT RESTING IN BED ON LEFT SIDE WITH EYES CLOSED. RESPIRATIONS EVEN AND UNLABORED. CALL LIGHT IN REACH.
[2023-04-23 05:33] LABS: HEMATOCRIT 27.3 % (35.0-50.0); HEMOGLOBIN 9.6 g/dL (12.0-18.0); MCH 30.1 (27-36); MCV 85.9 fl (81-99); RBC 3.18 M/ul (4.3-5.7)
[2023-04-23 05:40] LABS: PLATELET COUNT 33 K/uL (140-440)
[2023-04-23 05:45] LABS: ALBUMIN 2.9 g/dL (3.4-5.0); ALBUMIN/GLOBULIN RATIO 0.54 (1.1-2.4); ANION GAP 11.9 (7-21); BILIRUBIN, TOTAL 0.4 ng/dL (0.2-1.0); CALCIUM 8.5 mg/dL (8.5-10.1); CREATININE, SERUM 0.84 mg/dL (0.55-1.02); POTASSIUM 3.9 mmol/L (3.5-5.1); PROTEIN, TOTAL 8.3 g/dL (6.4-8.2)
[2023-04-23 05:54] VITALS: BP 148/61
--- NOTE | 2023-04-23 06:07 | NUR ---
PATIENT RESTING IN BED. PATIENT UP TO BATHROOM INDEPENDEDTLY TO VOID. VS AND I&Os OBTAINED AND RECORDED. SCHEDULED MEDICATION ADMINISTERED. ASSESSMENT COMPLETE. PATIENT ABD TENDER TO TOUCH. PATIENT REPORTS 7/10 ABD PAIN. PRN PAIN MEDICATION ADMINISTERED. HONG CRACKERS AND FRESH WATER PROVIDED. PATIENT REPORTS NO FURTHER NEEDS. CALL LIGHT IN REACH.
[2023-04-23 06:20] LABS: BANDS, MANUAL DIFF 2; LYMPHOCYTES, MANUAL DIFF 6; MONOCYTES, MANUAL DIFF 11; NEUTROPHILS, MANUAL DIFF 81
--- NOTE | 2023-04-23 08:40 | NUR ---
recieved report from nurse at 0715. pt was in room on phone with . currently pt is in bed on phone. pt requests that DR HO SPEAK WITH HER FATJHER ABOUT THE PLAN THAT THEY HAVE FOR HER SITUATION. PT STATES THAT SHE IS FRUSTRATED AND JUST NEED SOME CLARIFICATION. NO OTHER CARES OR REQUESTS AT THIS TIME. CALL LIGHT WITHIN REACH
[2023-04-23 09:07] VITALS: BP 140/68
--- NOTE | 2023-04-23 10:39 | NUR ---
RECIEVED REPORT FROM NURSE AT 07. PT WAS IN BED AWAKE AND ORIENTED. CURRENTLY IN ROOM WITH NO CARES NEEDED OR REQUESTED AT THIS TIME CALL LIGHT WITHIN REACH
--- NOTE | 2023-04-23 10:44 | EKG ---
[facility] [address] [facility] [place], [place] [address] Signed Normal sinus rhythm Normal ECG When compared with ECG of 13-APR-2023 13:52, No significant change was found Confirmed by HINA WALLACE MD ([id number]) on 04/23/2023 10:44:07 AM Electronically Signed By: HINA WALLACE 04/23/23 1044 PATIENT NAME: ANNABELLA IDNG Electrocardiogram DATE OF : 69 PHYSICIAN: HINA WALLACE REPORT #: [id number] REPORT IS CONFIDENTIAL AND NOT TO BE RELEASED WITHOUT AUTHORIZATION
--- NOTE | 2023-04-23 10:49 | NUR ---
ROUNDS. PT DECLINED PASTORAL CARE VISIT. PROVIDED PRAYER.
--- NOTE | 2023-04-23 10:50 | NUR ---
Dr Haile in room and discussed plan for pt to go home tomorrow and will follow with him for lab stephania at a later date. Pt denies needs from CM and plans for dc tomorrow.
--- NOTE | 2023-04-23 11:48 | NUR ---
PT STATES THAT SHE IS HAVING 7/10 PAIN. MEDICATED WITH OXYCODONE. NO OTHER CARES NEEDED OR REQUESTED AT THIS TIME CALL LIGHT WITHIN REACH
[2023-04-23 13:12] VITALS: BP 156/73
--- NOTE | 2023-04-23 14:55 | PATH ---
[facility] [address] [facility] [place], [place] [address] Signed THIS IS AN ADDENDUM REPORT SPECIMEN(S): A BONE MARROW - CORE SPECIMEN(S): B BONE MARROW - ASPIRATION SPECIMEN(S): C FLOW CYTOMETRY, BM EDTA CLINICAL HISTORY: 57-year-old male with Waldenstrom's macroglobulinemia now with pancytopenia. 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 - No circulating blasts or atypical lymphocytes are noted. Bone marrow biopsy and aspiration: - Hypercellular marrow, 90%, with less than 1% blasts. - Trilineage hematopoiesis with focal erythroid dyspoiesis. - CD5 negative, CD10 negative, [place] restricted B-cells, occupying 35% of the marrow cellularity. - Findings are supportive of the patient's history of lymphoplasmacytic lymphoma (Waldenstrom's macroglobulinemia). - See diagnostic comment. DIAGNOSTIC COMMENT: The findings are supportive of a diagnosis of Waldenstrom's macroglobulinemia involving 35% of the marrow cellularity. The marrow is hypercellular (90%). Prior studies revealed a normal FISH panel for MDS, normal chromosomes, and no mutations supportive of a myeloproliferative neoplasm. Evaluation for splenomegaly is recommended. A MYD88 mutation is pending at the time of this report. Insufficient material is present for other studies. JLP HISTORICAL SUMMARY: 57 yo female with a diagnosis of Waldenstrom's macroglobulinemia with an IgM-kappa M-spike (see case [id number]; 12/10/2022). The most recent bone marrow was hypercellular (90%) with no morphologic residual lymphoma (see case DB-; 03/18/2023). However, by flow cytometry, a very small kappa biased population was detected (0.04%). Prior myeloproliferative neoplasm mutations were negative PATIENT NAME: ANNABELLA DING PATHOLOGY DATE OF : 69 REPORT #: [id number] PHYSICIAN: GLADIS ROD PCP: STEPHANIE WHITE MD REPORT IS CONFIDENTIAL AND NOT TO BE RELEASED WITHOUT AUTHORIZATION [facility] [address] [place], [place] [address] Signed (JAK2 V617, BCR/ABL1, CALR, MPL). A FISH panel for MDS and chromosome analysis in the Mar 2023 bone marrow were also negative. She has been receiving chemotherapy. PERIPHERAL BLOOD: HEMOGRAM (04/13/2023): WBC 3.8 K/ul, RBC 3.16 M/ul, HGB 9.9 g/dl, HCT 28.1%, MCV 88.8 fl, MCH 31.2 pg, MCHC 35.1 g/dl, RDW 13.9%, PLT 66 K/ul. AUTOMATED DIFFERENTIAL COUNT: Neutrophils 70.2%, lymphocytes 13.7%, monocytes 14.2%, eosinophils 1.3%, basophils 0.6%. The red blood cells are normocytic and normochromic with minimal aniso-poikilocytosis. The neutrophils are unremarkable. Lymphocytes are composed of small mature appearing forms. Platelets are decreased in number. A focal area of platelet clumping is noted. This platelet clumping is focal. No circulating blasts or atypical lymphocytes are identified. BONE MARROW: ASPIRATE SMEARS/TOUCH IMPRINT: The aspirate smears are adequate for evaluation. Scattered erythroid precursors show adequate maturation with essentially normal morphology. The myeloid precursors show full maturation with unremarkable morphology. There is no increase in blasts. Megakaryocytes are identified with a normal morphology. BONE MARROW DIFFERENTIAL COUNT (300 cells): Blasts less than 1%. promyelocytes 1%, myelocytes 8%, metamyelocytes/bands/segs 45%, erythroid precursors 26%, lymphocytes 16%, monocytes 2%, eosinophils 1%, plasma cells 1%. M:E ratio: 2.1:1 BONE MARROW CORE BIOPSY/ASPIRATE CLOT/CELL BLOCK: The aspirate clot section (limited spicules are present in the clot) and the core biopsy (biopsy is superior for evaluation) are adequate for evaluation. The core biopsy demonstrates unremarkable trabecular bone. The cellularity is increased for age, estimated at 90-95%. The erythroid precursors are within normal limits with essentially unremarkable maturation. The myeloid precursors are unremarkable with no significant dyspoiesis. Blasts are not increased. Megakaryocytes are increased in number with a normal morphology. Atypical lymphoid aggregates are present in interstitial and paratrabecular locations. These lymphoid aggregates occupy approximately 35% of the total marrow cellularity. No granulomas or foreign malignant cells are detected. SPECIAL STAINS (with adequate controls): - iron (aspirate smear): Normal marrow iron stores by Prussian Blue stain. PATIENT NAME: ANNABELLA DING FRANCESCA PATHOLOGY DATE OF : 69 REPORT #: [id number] PHYSICIAN: GLADIS PATHOLOGY PCP: STEPHANIE WHITE MD REPORT IS CONFIDENTIAL AND NOT TO BE RELEASED WITHOUT AUTHORIZATION [address] [address] Signed No ring sideroblasts are identified. - iron (cell block): Focal positive by Prussian Blue stain. Limited spicules are present in the clot section. - reticulin (block A1): MF-2 IMMUNOHISTOCHEMISTRY STAINS (performed on block A1 with adequate controls). - PAX5: 35% positive in sheets/aggregates. - CD3: 7% positive - Ki-67: 40% in lymphoid aggregates - CD5: 5% positive. FLOW CYTOMETRY: Bone marrow, flow cytometry: - CD5 negative, CD10 negative, kappa restricted B-cell lymphoproliferative disorder (5%). - Small population (0.02%) of ckappa restricted plasma cells. - See Comment. COMMENT: 5% of all gated cells are kappa restricted B-cells. These B-cells are positive for CD19 and CD23 (variable). There is no expression of CD5, CD10 and CD20. The lack of CD20 marking may be treatment drug related. In addition, a small (0.02%) population of cytoplasmic kappa restricted plasma cells is noted. The patient's history of Waldenstrom's macroglobulinemia is noted. These flow cytometry results support a diagnosis of residual Waldenstrom's macroglobulinemia in the bone marrow. The T-cell population is unremarkable. The myeloid and monocyte myles are unremarkable. Blasts are not increased. FLOW CYTOMETRY ANALYSIS: FLOW DIFFERENTIAL (% Total CD45 vs. SSC gating): Myeloid 79%; Lymphoid 12%; Monocyte 1%; Dim CD45/Blast: 0.3%. Cell Count: 1.0 x 10*4/uL. POPULATION ANALYSIS: BLASTS: Analysis of the dim CD45 gate demonstrates 0.3% myeloblasts by CD34/CD117 and 0.2% hematogones. LYMPHOID CELLS: The lymphocyte gate comprises 12% of total events and includes 51% T-cells with a CD4:CD8 ratio of 1.0:1 and normal duran T-cell antigen expression. A kappa-restricted B-cell population is detected (40% of lymphocytes, 5% of total events) demonstrating some increased FSC/SSC and expressing CD45 DIM-MOD, CD19 MOD, CD23 (variable, partial), CD38 DIM (partial), and KAPPA DIM-MOD while negative for CD5, CD10, and CD20. The remainders are NK-cells. PATIENT NAME: ANNABELLA DING PATHOLOGY DATE OF : 69 REPORT #: [id number] PHYSICIAN: GLADIS PATHOLOGY PCP: STEPHANIE WHITE MD REPORT IS CONFIDENTIAL AND NOT TO BE RELEASED WITHOUT AUTHORIZATION [facility] [address] [place], [place] [address] Signed MYELOID CELLS: The myeloid population comprises 79% of the total events. No aberrant immunophenotypic expression is detected. MONOCYTES: The monocyte population comprises 1% of the total events. Monocytes are not increased. No aberrant immunophenotypic expression is detected. PLASMA CELLS: A clinical history of Waldenstrom's macroglobulinemia is noted. For this reason, select additional antibodies are run to further characterize the plasma cells. 0.02% ckappa-restricted plasma cells are detected (n=12) expressing CD45 DIM-NEG, CD38 MOD, CD138 DIM, CD19 (variable), and cKAPPA MOD while negative for CD20 and CD56. Initial Antibodies Used: KAPPA, LAMBDA, CD20, CD10, CD19, CD23, CD38, CD16, CD56, CD8, CD5, CD2, CD4, CD7, CD3, CD14, CD33, CD13, HLADR, CD34, CD117, CD15, CD45 Additional Antibodies (necessary for further plasma cell analysis): ckappa, clambda, CD138. Total Antibodies Used: 26. JNB FINAL DIAGNOSIS PERFORMED BY: Drew Becerra MD, Apr 15 2023 3:38PM CYTOGENETICS: Insufficient material is submitted for chromosome analysis. MOLECULAR / PCR: A mutation study for MYD88 is pending, and the result will be reported in an addendum. GROSS DESCRIPTION: Two specimens are received in two containers. A. The specimen, labeled and designated "Khurram, bone marrow core biopsy," is received in formalin and consists of a red-aguilera core of bone (1.0 cm in length by up to 0.3 cm in diameter). The specimen is submitted entirely in cassette (A1) following decalcification in Immunocal. B. The specimen, labeled and designated "Khurram, bone marrow clot biopsy," is received in formalin and consists of a portion of red-brown clot-like material (2.2 x 1.4 x 0.4 cm in aggregate). The specimen is submitted entirely in cassette (B1). VB (under the direct supervision of a pathologist) The Gross Description was prepared using a voice recognition system. The report was reviewed for accuracy; however, sound-alike word errors, addition and/or deletions may occur. If there is any question about this report, please contact Client Services. PATIENT NAME: ANNABELLA DING FRANCESCA PATHOLOGY DATE OF : 69 REPORT #: [id number] PHYSICIAN: [facility] PCP: STEPHANIE WHITE MD REPORT IS CONFIDENTIAL AND NOT TO BE RELEASED WITHOUT AUTHORIZATION [address] [place], [place] [address] Signed ADDITIONAL NOTES: Immunohistochemical and/or in situ hybridization studies if performed in this case included appropriate positive controls that reacted as expected. This test was developed and its performance characteristics determined by [facility]. It has not been cleared or approved by the U.S. Food and Drug Administration. The FDA has determined that such clearance or approval is not necessary. This test is used for clinical purposes. It should not be regarded as investigational or for research. [facility] is certified under the Clinical Laboratory Improvement Amendments of 1988 (CLIA) as qualified to perform high complexity clinical laboratory testing. In this case, certain antibodies were performed by both immunohistochemistry and flow cytometry analysis because flow cytometry analysis did not fully explain all the light microscopic findings. Immunohistochemistry aided in the analysis. Both methods are deemed medically necessary in this case. This test was developed and its performance characteristics determined by [facility]. It has not been cleared or approved by the US Food and Drug Administration. The FDA does not require this test to go through premarket FDA review. This test is used for clinical purposes. It should not be regarded as investigational or for research. This laboratory is certified under the Clinical Laboratory Improvement Amendments (CLIA) as qualified to perform high complexity clinical laboratory testing. PERFORMING LABORATORY: The technical preparation was performed by [facility], [address] [facility] [place] [address] (CLIA#: [id number]). Professional interpretation was performed by [facility] - [address] [address] (CLIA#: [id number]). Technical component was performed by [facility], [address] [place] [id number] (CLIA# [id number]). Professional interpretation was performed by [facility] - [address], [place] [address] (CLIA#: [id number]). IMAGES: A: [id number] PATIENT NAME: ANNABELLA DING PATHOLOGY DATE OF : 69 REPORT #: [id number] PHYSICIAN: GLADIS ROD PCP: STEPHANIE WHITE MD REPORT IS CONFIDENTIAL AND NOT TO BE RELEASED WITHOUT AUTHORIZATION [address] [address] Signed A: [id number] REASON FOR ADDENDUM: To report results of additional testing. Bone marrow aspirate, MYD88 mutation analysis: SEE NOTE - Mutation(s) Detected: Weak c.794T>C (p.L265P) Notes: MYD88 Mutation(s) - Results of MYD88 testing are weakly positive. Correlation with clinical and morphologic findings is recommended. Clinical Significance: MYD88 mutation is the most frequent genomic abnormality in diffuse large B-cell lymphoma (DLBCL) activated B-cell-like (ABC) subtype, detected in 40% of cases. MYD88 is rarely mutated in the germinal center B-cell-like (GCB) DLBL, therefore, it can be used to differentiate between the two subtypes. MYD88 mutation is detected in approximately 90% of cases of Waldenstrom macroglobulinemia/lymphoplasmacytic lymphoma. MYD88 mutation analysis can be a useful prognostic tool for patients with IgM-MGUS since the L265P mutation is associated with a higher risk of disease progression and a greater disease burden. MYD88 mutation has also been reported to be common (40%) in central nervous system lymphoma. Methodology: DNA was extracted from cells or paraffin-embedded tissues (FFPE). Bi-directional Gold Run sequencing of the L265P mutation in exon 5 of MYD88 was performed. This is a high sensitivity sequencing-based assay using enrichment of mutant allele and negative selection of wild type by locked nucleic acid (HEATER INSTALLER). The assay has a sensitivity of 0.5% for detecting the L265P mutation in a wild-type background. Various factors including quantity and quality of nucleic acid, sample preparation, and sample age can affect assay performance. References: 1. [place] SP, Juan F L, Karsten ML, Josias C, et al. Genomic Landscape of Waldenstrom Macroglobulinemia and Its Impact on Treatment Strategies. J Clin Oncol. 2020;38(11):6449-8663. PMID: 47465447. 2. Pearl X, Deepali W, Aguilar Q,et al. MYD88 L265P Mutation in Lymphoid Malignancies. Cancer Res. 2018;78(10):2830-3714. PMID: 66335344. Test/Panel [facility] AMA CPT MYD88 Mutation Analysis [id number] The Accessioning Component, Technical Component Processing, Analysis and PATIENT NAME: KHURRAM HONEYCUTTANNABELLA PATHOLOGY DATE OF : 69 REPORT #: [id number] PHYSICIAN: GLADIS ROD PCP: STEPHANIE WHITE MD REPORT IS CONFIDENTIAL AND NOT TO BE RELEASED WITHOUT AUTHORIZATION [address] [address] Signed Professional Component of this test was completed at [facility], [address] [place] [address], [place] / [address] / [phone] / CLIA # [id number] / Parachute Line Tier(s): Russell Quiros M.D. Interpretation Code(s): [id number] (Accession/CaseNo: [id number]) The performance characteristics of this test have been determined by [facility]. This test has not been approved by the FDA. The FDA has determined such clearance or approval is not necessary. This laboratory is CLIA certified to perform high complexity clinical testing. Images that may be included within this report are veterans service representative of the patient but not all testing in its entirety and should not be used to render a result. The CPT codes provided with our test descriptions are based on [employer] and AMA guidelines and are for informational purposes only. Correct CPT coding is the sole responsibility of the billing green party. Please direct any questions regarding coding to the payer being billed. Diagnostician: Drew Becerra MD Pathologist Electronically Signed 04/23/2023 Copies: ~ PATIENT NAME: ERINNLARISA BOOKERSANNABELLAJIM MA PATHOLOGY DATE OF : 69 REPORT #: [id number] PHYSICIAN: GLADIS PATHOLOGY PCP: STEPHANIE WHITE MD REPORT IS CONFIDENTIAL AND NOT TO BE RELEASED WITHOUT AUTHORIZATION
[2023-04-23 18:01] VITALS: BP 143/68
--- NOTE | 2023-04-23 18:14 | NUR ---
PT RN OCCUPIED, PT C/O 10/09 PAIN TO ABDOMEN. PRN MEDICATION GIVEN AT THIS TIME. ICE WATER REFILLED. ALL PT CARE NEEDS MET, CALL LIGHT WITHIN REACH.
--- NOTE | 2023-04-23 19:29 | NUR ---
REPORT RECEIVED FROM DAY SHIFT RN. PATIENT RESTING IN BED ON THE PHONE. PATIENT HAS NO CURRENT NEEDS. CALL LIGHT IN REACH.
[2023-04-23 19:49] VITALS: BP 135/69
--- NOTE | 2023-04-23 20:00 | NUR ---
PATIENT RESTING IN BED. VS AND I&Os OBTAINED AND RECORDED. SCHEDULED MEDICATIONS ADMINISTERED. PATIENT IV FLUSHED AND WNL. PATIENT HAS NO FURTHER NEEDS. CALL LIGHT IN REACH.
--- NOTE | 2023-04-23 21:42 | NUR ---
PATIENT RESTING IN BED. ASSESSMENT COMPLETE. PATIENT REQUESTING ANXIETY MEDICATION. PRN ANXIETY MEDICATION ADMINISTERED. BOWEL TONES ACTIVE. PATIENT REPORTS ABD "FEELING BETTER". ICE WATER, ICE, AND SPRITE PORVIDED. NO FURTHER NEEDS. CALL LIGHT IN REACH.
--- NOTE | 2023-04-23 22:29 | NUR ---
PATIENT RESTING IN BED ON BACK WITH EYES CLOSED. RESPIRATIONS EVEN AND UNLABORED. CALL LIGHT IN REACH.
[2023-04-24] MEDS ORDERED: NITROGLYCERIN PACKET TOP SCH
--- NOTE | 2023-04-24 00:48 | NUR ---
PATIENT RESTING IN BED ON BACK WITH EYES CLOSED. RESPIRATIONS EVEN AND UNLABORED. AT BEDSIDE. NO FURTHER NEEDS. CALL LIGHT IN REACH.
[2023-04-24 02:25] VITALS: BP 145/73
--- NOTE | 2023-04-24 02:39 | NUR ---
PATIENT RESTING IN BED. VS AND I&Os OBTAINED AND RECORDED. SCHEDULED MEDICATION ADMINISTERED, SEE MAR. ASSESSMENT COMPLETE. PATIENT REPORTS 7/10 PAIN IN THE R SIDE OF ABD. PRN PAIN MEDICATION ADMINISTERED PER PATIENT REQUEST. FRESH ICE WATER, SPRITE, AND HONG CRACKERS PROVIDED. PATIENT REPORTS NO FURTHER NEEDS. CALL LIGHT IN REACH.
[2023-04-24 06:03] VITALS: BP 141/73
--- NOTE | 2023-04-24 06:11 | NUR ---
CALL LIGHT ANSWERED. PATIENT REQUESTING PRN NAUSEA MEDICATION. PRN MEDICATION ADMINISTERED, SEE MAR. SCHEDULED MEDICATON ADMINISTERED. VS AND I&Os OBTAINED AND RECORDED. FRESH ICE AND SPRITE PROVIDED. PATIENT HAS NO FURTHER NEEDS. CALL LIGHT IN REACH.
--- NOTE | 2023-04-24 08:22 | NUR ---
recieved report from nurse at 07. pt was awake in bed watching tv and pt is currently awake in room with . no cares needed at this time call light within reach
[2023-04-24 08:24] VITALS: BP 143/75
--- NOTE | 2023-04-24 10:35 | NUR ---
ROUNDS. PT DECLINED VISIT. PROVIDED PRAYER.
[2023-04-24] MEDS ORDERED: OXYCODONE HCL5 MG PO (14:23)
[2023-04-24] MEDS ORDERED: NITRO-BID1 INCH TOP (14:23)
[2023-04-24 14:32] VITALS: BP 136/64
[2023-04-24 14:44] LABS: BASOPHILS 0.6 % (0-2); EOSINOPHILS 0.1 % (0-6); HEMATOCRIT 28.2 % (35.0-50.0); HEMOGLOBIN 10.3 g/dL (12.0-18.0); LYMPHOCYTES 6.8 % (24-44); MCH 30.6 (27-36); MCHC 36.6 g/dl (30-36); MCV 83.4 fl (81-99); MONOCYTES 11.3 % (0-12); NEUTROPHILS 81.2 % (39-80); RBC 3.38 M/ul (4.3-5.7); RDW 13.8 (10.5-15.0)
[2023-04-24 14:50] LABS: PLATELET COUNT 33 K/uL (140-440)
--- NOTE | 2023-04-26 14:58 | DS ---
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 She had a fair amount of abdominal distention, considered to have pain 10/09. 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 She was under the care of Dr. Coon, venetian blind maker oncologist. Emergency room evaluation include a CT scan of the abdomen, which showed some ascites as well as markedly thickened proximal small intestine (jejunum with luminal narrowing and thickening of the bowel wall itself). COVID, influenza and RSV assessments were all negative. She was admitted for further evaluation and care. PERTINENT PHYSICAL EXAMINATION: GENERAL: Showed a pleasant white woman who is alert and oriented, but quite uncomfortable. She did not look systemically toxic, however. VITAL SIGNS: Current pulse is 108, previously 120; blood pressure 152/99, O2 saturation 100%, respiratory rate 19. NECK: Trachea midline. CHEST: Clear without wheeze or rhonchi. HEART: Regular without murmur. ABDOMEN: Distended and large. She does have significant tenderness throughout without focal tenderness. LABORATORY STUDIES: Showed a white count of 20.2, hematocrit 50.6, platelets 190,000. Chem profile was pending. CT scan was reviewed confirming no evidence of large vessel occlusion of the branches of aorta and findings otherwise as described above. HOSPITAL COURSE: The patient was directly admitted to the hospital. I reviewed her situation with her oncologist, Dr. Coon to asserted that the patient was in complete remission re Waldenstroms macroglobulinemia based on a biopsy recently performed. The proximal small bowel was quite markedly inflamed and edematous and considered to be a manifestation of enteritis. The edematous proximal small bowel ( jejunum) did not likely represent Electronically Signed By: VASHTI OH MD 04/26/23 1458 PATIENT NAME: ANNABELLA DING DISCHARGE SUMMARY DATE OF : 69 REPORT #: [id number] PHYSICIAN: VASHTI HO MD PCP: STEPHANIE FRANCIS MD REPORT IS CONFIDENTIAL AND NOT TO BE RELEASED WITHOUT AUTHORIZATION [facility] [address] [place] [id number] Signed intestinal ischemia based on patent visceral arteries noted on the the CT scan. Stool studies were to be obtained while in the hospital related to her presentation with diarrhea. The patient was fluid resuscitated and begun on antibiotic intravenous Flagyl and Ancef. Her hematocrit decreased quite markedly within the first 24 hours with hct going from 50.6 to 30.6 with white count going from 20.2 to 8.3. Concurrently her platelet count diminished from 190,000 to 97,000. Neutrophils remained elevated at 83.1%. Electrolytes were normal, Bicarb 24 and calcium 8.0. The patient did feel better with pain medication, but was still quite markedly tender throughout the abdomen. The patient was affirmed to have both ovaries and uterus and is postmenopausal. She does have distant history of ovarian cyst. It was considered possible that a ruptured hemorrhagic ovarian cyst was accounting for her persistent severe pain and pelvic fluid previously noted. By April 11, her hematocrit was decreased to 28, platelets down to 79,000 and white count down to 5000. The possibility of a consumptive coagulopathy was considered as she was still quite markedly tender. Hospitalist consult with Dr. Reeder was undertaken. A CT scan was repeated to assess for change of findings that would more clearly indicate a surgical cause of her decreasing platelet count and hematocrit. The ct showed resolution of the jejunal thickening and no additional intra abdominal fluid. She was discontinued on her Toradol as well as heparin and heparin-induced thrombocytopenia panel was obtained which was ultimately found to be negative. Though her abdomen is somewhat more soft, it was definitely mat machine tender and she had complaints of pain. A repeat CT scan was performed. The appendix appeared mildly dilated, but this was considered likely secondary effect of fluid in the pelvis. A fibrinogen level was obtained, which was normal. The hospitalist, Dr. Reeder had described her pancytopenia as possibly related to dilutional causes. A platelet transfusion was initiated by Dr. Reeder which quite notably had absolutely no beneficial effect on her platelet count in any way. A reticulocyte count, haptoglobin, and blood smear review showed no platelet, clots or clumps. The patient though improved, still had abdominal distention, bloating and generalized tenderness mostly in the upper abdomen. She was allowed a full liquid diet minimally and had no nausea, vomiting, or fever. She had progressive decrease in her white count, hematocrit and platelet count which by April 13 showed a hematocrit of 28.1, platelets 66,000, and white count of 3.8 with 72% neutrophils. She did have significant pain and was not able to tolerate oral intake in a reliable way. Consultation was undertaken with Dr. Coon, her oncologist, and he did perform at my request a right posterior iliac crest bone marrow biopsy. This was performed on April 15, 2023. The results of the bone marrow biopsy included the finding of no Electronically Signed By: VASHTI HO MD 04/26/23 1458 PATIENT NAME: ANNABELLA DING DISCHARGE SUMMARY DATE OF : 69 REPORT #: [id number] PHYSICIAN: VASHTI HO MD PCP: STEPHANIE FRANCIS MD REPORT IS CONFIDENTIAL AND NOT TO BE RELEASED WITHOUT AUTHORIZATION [facility] [address], [place] [address] Signed circulating blast cells or atypical lymphocytes. Hypercellular marrow 90% with less than 1% blasts. Trilineage hematopoiesis with focal erythroid dyspoiesis. 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 The findings were supportive of diagnosis of Waldenstrom's macroglobulinemia. Myeloid precursors were considered unremarkable without evidence of dyspoiesis. Megakaryocytes were increased in number with normal morphology. Notably, this pathology report was not available for more than seven days from its initial acquisition. It was considered likely that the patient had an immune reaction to administered antibiotic therapy and therefore Flagyl and Ancef were discontinued as was her Pepcid. Literature reviewe confirms all of these can be implicated in pancytopenia. She was noted on Chem profile to have an alkaline phosphatase slightly elevated, but not excessive. She had required IV morphine for her pain control. Her pain began to be more focal in the upper abdomen. Her 2nd CT scan had affirmed complete resolution of the thickening of the jejunal segment that was noted at the time of admission and promoting an underlying diagnosis of enteritis. A gallbladder ultrasound was performed, which did not show stones, it did show some gallbladder sludge and no sign of thickening of the gallbladder wall. A CCK-HIDA test was deemed appropriate to assess for gallbladder dysfunction. The HIDA scan showed a normal ejection fraction of greater than 82% but the patient did say she felt right upper abdominal and epigastric pain after injection of the CCK. Notably, this was not recorded in her official report. She was maintained on a low-fat diet on that basis. She had episodically distressing left upper abdominal pain. Her platelet count continued to diminish and by April 19 was 43,000. She remained without signs of petechiae or overt clinical bleeding. Her white count remained low as was her hematocrit, though stable. Given the persistence of her thrombocytopenia and generalized pancytopenia and considering epigastric and left upper abdominal pain as the dominant problem at that time, upper endoscopy was deemed appropriate and was performed on April 19, 2023. This showed minimal proximal gastritis, but no evidence of ulcer, neoplasm, or hemorrhage. She was placed on Carafate. Hospitalist, Dr. Venita Mac advised nitroglycerin topically for possible small vessel ischemic disease given her distant history of Waldenstrom's macroglobulinemia, which was to increase splanchnic blood flow. She did have some mild improvement with topical NTG it is noted. She had progressive manifestation of her pancytopenia and persistent upper abdominal pain for which I thought it quite likely the source as acalculous cholecystitis for which cholecystectomy would likely be beneficial. Unfortunately, her platelet count continued to diminish and decrease to 42,000 by April 20 with a white count of 3.2 Electronically Signed By: VASHTI HO MD 04/26/23 1458 PATIENT NAME: ANNABELLA DING FRANCESCA DISCHARGE SUMMARY DATE OF : 69 REPORT #: [id number] PHYSICIAN: VASHTI HO MD PCP: STEPHANIE FRANCIS MD REPORT IS CONFIDENTIAL AND NOT TO BE RELEASED WITHOUT AUTHORIZATION [facility] [address], [place] [address] Signed and hematocrit 29.3. A 3rd CT scan had been performed, which showed no evidence of dilation of the gallbladder or gallbladder wall thickening and no visible stones nor any other intra-abdominal abnormality, specifically no intraparenchymal hemorrhage or neoplasm, free air or other similar finding. On the high probability that cholecystectomy would likely be curative to her abdominal pain problems (though not proven by any means), conferral with her venetian blind maker recommended that a regimen to increase her platelets acutely to allow for cholecystectomy. The regimen Decadron 40 mg IV daily for four days and IVIG immunoglobulin infusion 1 g/kg was undertaken. She did tolerate this regimen well without adverse side effects, but unfortunately had essentially no effect of increasing her platelet count at all. Indeed, her platelet count on April 23 was 33,000. Her white count was 3.0 and hematocrit 27.3. After conferring with Dr. Coon, her venetian blind maker a consideration for simply discharging to home, maintaining a low-fat diet which she does appear to be tolerating, awaiting resolution of her pancytopenia (which may take weeks or longer according to Dr. Coon) would most appropriately be undertaken. She is discharged to home with only mild tenderness on examination, tolerating a low-fat diet and with a regimen avoiding antibiotics and H2 blockers or PPI medication. I anticipate to see her on next week (today is Thursday) at which point, a CBC from Thursday will be reviewed. It is our hope and expectation that in time, her platelet count and other parameters will increase allowing for likely laparoscopy with probable cholecystectomy for her underlying pain, which is relatively likely related to acalculous cholecystitis. DISCHARGE MEDICATIONS: Will include: 1. Nitroglycerin ointment 2% 0.5 inches topically every 6 hours. 2. Oxycodone 5 mg one p.o. q. 6-12 hours as needed for severe pain, #30. 3. Bupropion XL 150 mg three tablets p.o. daily for mood. 4. Propranolol 40 mg p.o. b.i.d. 5. Fluoxetine, Prozac 20 mg two tablets p.o. daily for mood. 6. Lorazepam 1 mg tablet q.4 hours as needed for anxiety. 7. Synthroid 88 mcg p.o. daily. 8. Ibuprofen 3 tabs p.o. q.i.d. as needed for pain. 9. Zofran 8 mg oral as needed for nausea and vomiting. 10. Tylenol 1 g p.o. q.6 hours as needed for pain. It is emphasized that the patient will avoid the opiate medication as much as possible and maintain dietary restrictions to minimize her symptoms. She will follow up with me in one week. A visit will additionally be set up with her oncologist, Dr. Coon as well as her primary care provider and Dr. Stephanie Francis as well. Electronically Signed By: VASHTI HO MD 04/26/23 1458 PATIENT NAME: ANNABELLA DING FRANCESCA DISCHARGE SUMMARY DATE OF : 69 REPORT #: [id number] PHYSICIAN: VASHTI HO MD PCP: STEPHANIE FRANCIS MD REPORT IS CONFIDENTIAL AND NOT TO BE RELEASED WITHOUT AUTHORIZATION [facility] [address] [place] [address] Signed DISCHARGE DIAGNOSES: 1. Severe upper abdominal pain with thickening of jejunum and probable enteritis. 2. Post antibiotic therapy pancytopenia; pancytopenia attributed to idiosyncratic reaction of antibiotic therapy. 3. History of Waldenstrom macroglobulinemia;. 4. concurrent bone marrow biopsy showing no sign of active disease. 5. Obesity. 6. Clearance of thickened small bowel on CT scan #2 (out of three total). 7. Gallbladder sludge and gallbladder ultrasound without thickening or dilation. No evidence of stones; subsequent CCK-HIDA test 82% ejection fraction with reproduction of symptoms. 8. Obesity. 9. Underlying anxiety. 10. Nonresponse of thrombocytopenia to regimen of Decadron 40 mg IV daily x4 days and intravenous immunoglobulin 1 g/kg x1. 11. Nonresponse of thrombocytopenia to six-pack platelet infusion. 12. Discharge CBC, April 24, 2023 showing white count of 1.9, hematocrit 28.2, platelets 33,000. MD DARREN Chavarria/HARIKAL /[id number] cc: MD Dr. Estefania Winter Dr., MD Russel J Nichols, MD Dr. Hilborn Electronically Signed By: VASHTI HO MD 04/26/23 1458 PATIENT NAME: ANNABELLA DING DISCHARGE SUMMARY DATE OF : 69 REPORT #: [id number] PHYSICIAN: VASHTI HO MD PCP: STEPHANIE FRANCIS MD REPORT IS CONFIDENTIAL AND NOT TO BE RELEASED WITHOUT AUTHORIZATION [facility] [address] [place] [address] Signed Copies: JASON CASTANO MD, ROBERT C MD NICHOLS, RUSSEL J MD ~ Electronically Signed By: VASHTI HO MD 04/26/23 1458 PATIENT NAME: ANNABELLA DING DISCHARGE SUMMARY DATE OF : 69 REPORT #: [id number] PHYSICIAN: VASHTI HO MD PCP: STEPHANIE FRANCIS MD REPORT IS CONFIDENTIAL AND NOT TO BE RELEASED WITHOUT AUTHORIZATION
== END 2023-04-24 15:10 | disposition home or self-care (01) | DRG 392 ==
LOC: ED 06:43 → MS 10:52
PROVIDERS: Emergency Medicine; Family Medicine; Internal Medicine; ADMIT Surgery; ATTEND Surgery
PROC: 07DR3ZX Extraction of Iliac Bone Marrow, Percutaneous Approach, Diagnostic (ICD-10-PCS; 2023-04-15)
PROC: 0DB68ZX Excision of Stomach, Via Natural or Artificial Opening Endoscopic, Diagnostic (ICD-10-PCS; principal; 2023-04-19 10:00)
DX: K52.9 Noninfective gastroenteritis and colitis, unspecified (principal); R18.8 Other ascites; D61.818 Other pancytopenia; N17.9 Acute kidney failure, unspecified; E66.9 Obesity, unspecified; F41.0 Panic disorder [episodic paroxysmal anxiety]; F32.A Depression, unspecified; E03.9 Hypothyroidism, unspecified; I10 Essential (primary) hypertension; K29.70 Gastritis, unspecified, without bleeding; R94.5 Abnormal results of liver function studies; Z98.1 Arthrodesis status; Z98.890 Other specified postprocedural states; Z79.899 Other long term (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; Z79.890 Hormone replacement therapy; Z85.72 Personal history of non-Hodgkin lymphomas; Z11.52 Encounter for screening for COVID-19; Z68.33 Body mass index [BMI] 33.0-33.9, adult
CPT/HCPCS: 00731; 01112; 36415; 36430; 74177; 76705; 78227; 80053; 81003; 82150; 82728; 82746; 83010; 83550; 83605; 83615; 83690; 83735; 84425; 84703; 85025; 85045; 85060; 85379; 85384; 85610; 85730; 86850; 86900; 86901; 86922; 87040; 87502; 93005; 93010; A9270; A9537; J0690; J0780; J1100; J1170; J1200; J1459; J1885; J2060; J2270; J2405; J2704; J2805; J7121; P9035; Q9967; U0002

== ENCOUNTER 2023-07-14 12:48 | Emergency (ER) | payer OTHER ==
[~2023-07-14] VITALS: Ht 165.1 cm; Wt 95.0 kg
[~2023-07-14 12:48] MED LIST changes: +ATIVAN2 MG PO; +BORTEZOMIB SUB-Q; +CEPHALEXIN500 M1 PO; +CETIRIZINE HCL10 MG PO; +IBU-200200 MG PO; +LEVOFLOXACIN750 MG PO; +LEVOTHYROXINE88 MCG PO; +LORAZEPAM1 MG PO; +NITRO-BID1 INCH TOP; +NON-ASPIRIN PA325 MG PO; +ONDANSETRON HCL8 MG PO; +OXYCODONE HCL5 MG PO; +TRUXIMA10 MG/1 ML IV
--- OUTSIDE RECORDS SUMMARY | 2023-07-14 12:52 | XMS ---
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 PHONE: Unknown -, RONALD- Dentist: Educational Coordinator [facility] PHONE: [phone] Wade has no Care Guidelines for this patient. EMichael VISIT COUNT (12 MO.) Roberta Zamora TOTAL 10 NOTE: Visits indicate total known visits. ED/UCC VISIT TRACKING (12 MO.) 07/14/2023 12:[address] [facility] [place] TYPE: Emergency COMPLAINT: - SOB, ABD PAIN 05/16/2023 13:[address] [facility] [place] TYPE: Emergency COMPLAINT: - NOSE BLEED,CHEST PRESSURE,ABD PAIN DIAGNOSES: - Depression, unspecified - Epistaxis - Essential (primary) hypertension - Hormone replacement therapy - Hypothyroidism, unspecified - Non-Hodgkin lymphoma, unspecified, unspecified site - Other chest pain - Other usp (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 - Other pancytopenia - Palpitations - Panic disorder [episodic paroxysmal anxiety] 05/02/2023 08:50 [facility] [place] TYPE: Emergency COMPLAINT: - NOSE BLEED DIAGNOSES: - Depression, unspecified - Epistaxis - Essential (primary) hypertension - Hormone replacement therapy - Hypothyroidism, unspecified - Other usp (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 - Other pancytopenia - Panic disorder [episodic paroxysmal anxiety] - Personal history of non-Hodgkin lymphomas 04/10/2023 06:44 [facility] [place] TYPE: Emergency COMPLAINT: - V/D, ABD PAIN 03/24/2023 11:25 [facility] [place] TYPE: Emergency COMPLAINT: - L ANKLE INJURY DIAGNOSES: - Activity, walking, marching and hiking - Essential (primary) hypertension - Hypothyroidism, unspecified - Other and unspecified overexertion or strenuous movements or postures, initial encounter - Other seed corn manager production (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 - Pain in left ankle and joints of left foot - Panic disorder [episodic paroxysmal anxiety] - Sprain of unspecified ligament of left ankle, initial encounter 02/22/2023 06:00 [facility] [place] TYPE: Emergency COMPLAINT: - L FLANK PAIN DIAGNOSES: - Essential (primary) hypertension - cardiac catheterization technologist (current) use of systemic steroids - Low back pain, unspecified - Lumbago with sciatica, left side - Other usp (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 - Unspecified B-cell lymphoma, unspecified site 12/19/2022 15:59 [facility] [place] TYPE: Emergency COMPLAINT: - HEART PALPATATIONS DIAGNOSES: - Adverse effect of glucocorticoids and synthetic analogues, initial encounter - Anxiety disorder, unspecified - Contact with and (suspected) exposure to COVID-19 - Encounter for screening for COVID-19 - Essential (primary) hypertension - Hormone replacement therapy - residential (current) use of systemic steroids - Other chest pain - Other seed corn manager production (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 12/14/2022 18:17 [facility] [place] TYPE: Emergency COMPLAINT: - NOSE BLEED DIAGNOSES: - Epistaxis - Essential (primary) hypertension - Hormone replacement therapy - Hypothyroidism, unspecified - Other seed corn manager production (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 - Other pancytopenia 12/02/2022 17:40 [facility] [place] TYPE: Emergency COMPLAINT: - ABNORMAL LAB RESULTS DIAGNOSES: - Epistaxis - Essential (primary) hypertension - Hormone replacement therapy - Hypothyroidism, unspecified - Other usp (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 - Other pancytopenia - Weakness 09/11/2022 12:34 [facility] [place] TYPE: Emergency COMPLAINT: - R SHOULDER PAIN DIAGNOSES: - Essential (primary) hypertension - Pain in right shoulder INPATIENT VISIT TRACKING (12 MO.) 05/06/2023 14:24 [facility] [place] TYPE: Observation COMPLAINT: - ABDOMINAL PAIN, THROMBOCYTOPENIC DIAGNOSES: - Essential (primary) hypertension - Generalized abdominal pain - Hormone replacement therapy - Other seed corn manager production (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 - Other pancytopenia - Unspecified abdominal pain 04/10/2023 10:52 [facility] [place] TYPE: Medical Surgical COMPLAINT: - ABD PAIN,ASCITES,SM BOWEL THICKENING,HX,MACROGLOBU DIAGNOSES: - Abnormal results of liver function studies - Abnormal results of liver function studies - Acute kidney failure, unspecified - Acute kidney failure, unspecified - Arthrodesis status - Arthrodesis status - Body mass index [BMI] 33.0-33.9, adult - Body mass index [BMI] 33.0-33.9, adult - Depression, unspecified - Depression, unspecified - Encounter for screening for COVID-19 - Encounter for screening for COVID-19 - Essential (primary) hypertension - Essential (primary) hypertension - Gastritis, unspecified, without bleeding - Gastritis, unspecified, without bleeding - Hormone replacement therapy - Hormone replacement therapy - Hypothyroidism, unspecified - Hypothyroidism, unspecified - Noninfective gastroenteritis and colitis, unspecified - Noninfective gastroenteritis and colitis, unspecified - Obesity, unspecified - Obesity, unspecified - Other ascites - Other seed corn manager production (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 - Other seed corn manager production (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 - Other pancytopenia - Other pancytopenia - Other specified postprocedural states - Other specified postprocedural states - Panic disorder [episodic paroxysmal anxiety] - Panic disorder [episodic paroxysmal anxiety] - Personal history of non-Hodgkin lymphomas - Personal history of non-Hodgkin lymphomas [email or web address]
[2023-07-14 13:32] LABS: BASOPHILS 0.4 % (0-2); EOSINOPHILS 0.1 % (0-6); HEMATOCRIT 36.4 % (35.0-50.0); HEMOGLOBIN 12.8 g/dL (12.0-18.0); LYMPHOCYTES 10.9 % (24-44); MCH 32.3 (27-36); MCV 92.3 fl (81-99); MONOCYTES 5.7 % (0-12); NEUTROPHILS 82.9 % (39-80); PLATELET COUNT 57 K/uL (140-440); RBC 3.95 M/ul (4.3-5.7)
[2023-07-14] MEDS ORDERED: BRUKINSA80 MG PO (13:43)
[2023-07-14 13:57] LABS: ALBUMIN 3.4 g/dL (3.4-5.0); ALBUMIN/GLOBULIN RATIO 0.81 (1.1-2.4); ANION GAP 14.9 (7-21); BILIRUBIN, TOTAL 0.5 ng/dL (0.2-1.0); BUN/CREATININE RATIO 21.77 (6.0-28.6); CALCIUM 8.6 mg/dL (8.5-10.1); CREATININE, SERUM 1.24 mg/dL (0.55-1.02); MAGNESIUM 2.2 mg/dL (1.8-2.4); POTASSIUM 3.9 mmol/L (3.5-5.1); PROTEIN, TOTAL 7.6 g/dL (6.4-8.2)
[2023-07-14] MEDS ORDERED: HYDROmorphone HCL 1 MG/ML SYR IV PRN (14:30)
[2023-07-14] MEDS ORDERED: ondansetron HCL 4 MG/2 ML VIAL IV ONE (14:45)
[2023-07-14] MEDS ORDERED: LORazepam 2 MG/ML VIAL IV ONE (17:15)
[2023-07-14 19:26] VITALS: BP 152/83
--- NOTE | 2023-07-14 21:35 | EKG ---
[facility] [address] [place] [address] Signed Sinus tachycardia Nonspecific ST abnormality Abnormal ECG When compared with ECG of 16-MAY-2023 13:25, No significant change was found Confirmed by Jose Carter MD () on 07/14/2023 9:36:27 PM Electronically Signed By: JOSE CARTER MD 07/14/23 2135 PATIENT NAME: ANNABELLA DING Electrocardiogram DATE OF : 69 PHYSICIAN: JOSE CARTER MD REPORT #: [id number] REPORT IS CONFIDENTIAL AND NOT TO BE RELEASED WITHOUT AUTHORIZATION
== END 2023-07-14 19:37 | disposition short-term general hospital (02) ==
LOC: ED 12:48
PROVIDERS: Emergency Medicine
DX: K56.609 Unspecified intestinal obstruction, unspecified as to partial versus complete obstruction (principal); I10 Essential (primary) hypertension; Z79.890 Hormone replacement therapy; Z79.899 Other long term (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
CPT/HCPCS: 36415; 71045; 74177; 80053; 83690; 83735; 83880; 84484; 84703; 85025; 93005; 93010; 96374; 96375; 99285-25; J1170; J2060; J2405; Q9967

== ENCOUNTER 2023-09-01 19:43 | Emergency (ER) | payer OTHER ==
[~2023-09-01] VITALS: Ht 165.1 cm; Wt 97.9 kg
--- NOTE | ~2023-09-01 | EKG ---
[facility] [address] [facility] [place], [place] [address] Draft EKG completed, results pending confirmation PATIENT NAME: ANNABELLA DING Electrocardiogram DATE OF : 69 PHYSICIAN: PRELIMINARY REPORT #: [id number] REPORT IS CONFIDENTIAL AND NOT TO BE RELEASED WITHOUT AUTHORIZATION
[~2023-09-01 19:43] MED LIST changes: +BRUKINSA80 MG PO
--- OUTSIDE RECORDS SUMMARY | 2023-09-01 19:44 | XMS ---
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 E.D. VISIT COUNT (12 MO.) 11 [facility] TOTAL 11 NOTE: Visits indicate total known visits. ED/UCC VISIT TRACKING (12 MO.) 09/01/2023 19:43 [facility] [place] TYPE: Emergency COMPLAINT: - TROUBLE BREATHING 07/14/2023 12:49 [facility] [place] TYPE: Emergency COMPLAINT: - SOB, ABD PAIN DIAGNOSES: - Essential (primary) hypertension - Hormone replacement therapy - Other buttermaker (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 - Shortness of breath - Unspecified intestinal obstruction, unspecified as to partial versus complete obstruction 05/16/2023 13:23 [facility] [place] TYPE: Emergency COMPLAINT: - NOSE BLEED,CHEST PRESSURE,ABD PAIN DIAGNOSES: - Depression, unspecified - Epistaxis - Essential (primary) hypertension - Hormone replacement therapy - Hypothyroidism, unspecified - Non-Hodgkin lymphoma, unspecified, unspecified site - Other chest pain - Other buttermaker (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 - Other pancytopenia - Palpitations - Panic disorder [episodic paroxysmal anxiety] 05/02/2023 08:50 [facility] [place] TYPE: Emergency COMPLAINT: - NOSE BLEED DIAGNOSES: - Depression, unspecified - Epistaxis - Essential (primary) hypertension - Hormone replacement therapy - Hypothyroidism, unspecified - Other buttermaker (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 - Other pancytopenia - [...] movements or postures, initial encounter - Other mcfp (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 - Pain in left ankle and joints of left foot - Panic disorder [episodic paroxysmal anxiety] - Sprain of unspecified ligament of left ankle, initial encounter 02/22/2023 06:00 [facility] [place] TYPE: Emergency COMPLAINT: - L FLANK PAIN DIAGNOSES: - Essential (primary) hypertension - long-term (current) use of systemic steroids - Low [...] (primary) hypertension - Hormone replacement therapy - 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 [place] TYPE: Emergency COMPLAINT: - ABNORMAL LAB RESULTS DIAGNOSES: - Epistaxis - Essential (primary) hypertension - Hormone replacement therapy - Hypothyroidism, unspecified - Other buttermaker (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 - Other pancytopenia - Weakness 09/11/2022 12:34 [facility] [place] TYPE: Emergency COMPLAINT: - R SHOULDER PAIN DIAGNOSES: - Essential (primary) hypertension - Pain in right shoulder INPATIENT VISIT TRACKING (12 MO.) 07/14/2023 20:05 [facility] [place] TYPE: Medical Surgical COMPLAINT: - small bowel obstruction DIAGNOSES: - small bowel obstruction 05/06/2023 14:24 [facility] [place] TYPE: Observation COMPLAINT: - ABDOMINAL PAIN, THROMBOCYTOPENIC DIAGNOSES: - Essential (primary) hypertension - Generalized abdominal pain - Hormone replacement therapy - Other mcfp (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 - [...] Obesity, unspecified - Other ascites - Other buttermaker (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 - Other buttermaker (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 - Other pancytopenia - Other pancytopenia - Other specified postprocedural states - Other specified postprocedural states - Panic disorder [episodic paroxysmal anxiety] - Panic disorder [episodic paroxysmal anxiety] - Personal history of non-Hodgkin lymphomas - Personal history of non-Hodgkin lymphomas [id number]
[2023-09-01 20:18] LABS: INR 1.05 (0.80-1.30)
[2023-09-01 20:24] LABS: ALBUMIN 3.3 g/dL (3.4-5.0); ALBUMIN/GLOBULIN RATIO 0.79 (1.1-2.4); ANION GAP 11.8 (7-21); BILIRUBIN, TOTAL 0.5 ng/dL (0.2-1.0); BUN/CREATININE RATIO 18.01 (6.0-28.6); CALCIUM 8.7 mg/dL (8.5-10.1); CREATININE, SERUM 1.11 mg/dL (0.55-1.02); POTASSIUM 3.8 mmol/L (3.5-5.1); PROTEIN, TOTAL 7.5 g/dL (6.4-8.2)
[2023-09-01 20:26] LABS: BASOPHILS 0.2 % (0-2); EOSINOPHILS 0.1 % (0-6); LYMPHOCYTES 34.8 % (24-44); MCV 86.7 fl (81-99); MONOCYTES 10.6 % (0-12); NEUTROPHILS 54.3 % (39-80); RDW 16.4 (10.5-15.0)
[2023-09-01 20:45] LABS: MCHC 33.4 g/dl (30-36); PLATELET COUNT 13 K/uL (140-440)
[2023-09-01 20:48] LABS: ABO B; ANTIBODY SCREEN NEGATIVE; RH POSITIVE
[2023-09-01 21:43] LABS: IS CROSSMATCH COMPATIBLE
[2023-09-01] MEDS ORDERED: ACETAMINOPHEN 500 MG TAB PO ONE (22:45)
[2023-09-01] MEDS ORDERED: diphenhydrAMINE HCL 50 MG/ML VIAL IV ONE (22:45)
[2023-09-01] MEDS ORDERED: ondansetron HCL 4 MG/2 ML VIAL IV ONE (22:45)
[2023-09-02] MEDS ORDERED: LORazepam 2 MG/ML VIAL IV ONE ×2 (00:15→02:45)
[2023-09-02 00:43] LABS: IS CROSSMATCH COMPATIBLE
[2023-09-02 06:17] VITALS: BP 128/58
[2023-09-02 12:09] LABS: RBC 1.79 M/ul (4.3-5.7)
[2023-09-02 12:10] LABS: HEMATOCRIT 15.6 % (35.0-50.0); HEMOGLOBIN 5.2 g/dL (12.0-18.0); MCH 29.1 (27-36)
[2023-09-02 14:30] LABS: RBC, LEUKOREDUCED 18212411105600T; RBC, LEUKOREDUCED 18212411213300J
== END 2023-09-02 06:18 | disposition home or self-care (01) ==
LOC: ED 19:43
PROVIDERS: Family Medicine
DX: D64.9 Anemia, unspecified (principal); C85.90 Non-Hodgkin lymphoma, unspecified, unspecified site; I10 Essential (primary) hypertension; E03.9 Hypothyroidism, unspecified; F32.A Depression, unspecified; Z88.1 Allergy status to other antibiotic agents; Z79.890 Hormone replacement therapy; Z79.899 Other long term (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
CPT/HCPCS: 36415; 80053; 85025; 85060; 85610; 86850; 86900; 86901; 86922; 93005; 93010; A9270; J1200; J2060; J2405; P9016

== ENCOUNTER 2023-09-05 08:06 | Emergency (ER) | payer OTHER ==
[~2023-09-05] VITALS: Ht 165.1 cm; Wt 96.2 kg
[~2023-09-05 08:06] MED LIST changes: +ONELAX DOC50 MG/5 ML PO
--- OUTSIDE RECORDS SUMMARY | 2023-09-05 08:07 | XMS ---
PreManage Notification: ANNABELLA DING Security Color Television Console Monitor Events No recent Security Events currently on file CRITERIA MET - 6 ED Visits in 6 Months - [facility] - [facility] - 2 Visits in 30 Days CARE PROVIDERS MARISELA SAUL Family Medicine 02/17/2010-Current PHONE: Unknown -[facility]+ Dentist: Cattery Operator [facility] PHONE: [phone] -RONALD- Dentist: Cattery Operator Critical access hospital DENTAL [facility] PHONE: [phone] Wade has no Care Guidelines for this patient. E.D. VISIT COUNT (12 MO.) 12 [facility] TOTAL 12 NOTE: Visits indicate total known visits. ED/UCC VISIT TRACKING (12 MO.) 09/05/2023 08:07 [facility] [place] TYPE: Emergency COMPLAINT: - SHORTNESS OF BREATH 09/01/2023 19:43 [facility] [place] TYPE: Emergency COMPLAINT: - TROUBLE BREATHING DIAGNOSES: - Allergy status to other antibiotic agents - Anemia, unspecified - Depression, unspecified - Essential (primary) hypertension - Hormone replacement therapy - Hypothyroidism, unspecified - Non-Hodgkin lymphoma, unspecified, unspecified site - Other mcfp (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 - Shortness of breath 07/14/2023 12:49 [facility] [place] TYPE: Emergency COMPLAINT: - SOB, ABD PAIN DIAGNOSES: - Essential (primary) hypertension - Hormone replacement therapy - Other mcfp (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 - Shortness of breath - Unspecified intestinal obstruction, unspecified as to partial versus complete obstruction 05/16/2023 13:23 [facility] [place] TYPE: Emergency COMPLAINT: - NOSE BLEED,CHEST PRESSURE,ABD PAIN DIAGNOSES: - Depression, unspecified - Epistaxis - Essential (primary) hypertension - Hormone replacement therapy - Hypothyroidism, unspecified - Non-Hodgkin lymphoma, unspecified, unspecified site - Other chest pain - Other filler leaf cutter long (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 - Other pancytopenia - [...] movements or postures, initial encounter - Other filler leaf cutter long (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 - Pain in left ankle and joints of left foot - Panic disorder [episodic paroxysmal anxiety] - Sprain of unspecified ligament of left ankle, initial encounter 02/22/2023 06:00 [facility] [place] TYPE: Emergency COMPLAINT: - L FLANK PAIN DIAGNOSES: - Essential (primary) hypertension - 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 - Low back pain, unspecified - Lumbago with sciatica, left side - Other filler leaf cutter long (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 - Unspecified B-cell lymphoma, unspecified site 12/19/2022 15:59 [facility] [place] TYPE: Emergency COMPLAINT: - HEART PALPATATIONS DIAGNOSES: - Adverse effect of glucocorticoids and synthetic analogues, initial encounter - Anxiety disorder, unspecified - Contact with and (suspected) exposure to COVID-19 - Encounter for screening for COVID-19 - Essential (primary) hypertension - Hormone replacement therapy - [facility]PC (current) use of systemic steroids - Other chest pain - Other mcfp (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 12/14/2022 18:17 [facility] [place] TYPE: Emergency COMPLAINT: - NOSE BLEED DIAGNOSES: - Epistaxis - Essential (primary) hypertension - Hormone replacement therapy - Hypothyroidism, unspecified - Other filler leaf cutter long (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 - Other pancytopenia 12/02/2022 [...] INPATIENT VISIT TRACKING (12 MO.) 07/14/2023 20:05 [facility] [place] TYPE: Medical Surgical COMPLAINT: - small bowel obstruction DIAGNOSES: - small bowel obstruction 05/06/2023 14:24 [facility] [place] TYPE: Observation COMPLAINT: - ABDOMINAL PAIN, THROMBOCYTOPENIC DIAGNOSES: - Essential (primary) hypertension - Generalized abdominal pain - Hormone replacement therapy - Other filler leaf cutter long (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 - Other pancytopenia - Unspecified abdominal pain 04/10/2023 10:[address] [facility] [place] TYPE: Medical Surgical COMPLAINT: - ABD [...] Obesity, unspecified - Other ascites - Other filler leaf cutter long (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 - Other filler leaf cutter long (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 - Other pancytopenia - Other pancytopenia - Other specified postprocedural states - Other specified postprocedural states - Panic disorder [episodic paroxysmal anxiety] - Panic disorder [episodic paroxysmal anxiety] - Personal history of non-Hodgkin lymphomas - Personal history of non-Hodgkin lymphomas [id number]
[2023-09-05] MEDS ORDERED: ondansetron HCL 4 MG/2 ML VIAL IV ONE ×2 (08:45→11:30)
[2023-09-05] MEDS ORDERED: MORPHINE SULFATE 10 MG/ML VIAL IV ONE (08:45)
[2023-09-05] MEDS ORDERED: DIATRIZOATE MEGLU/DIATRIZO SOD 15 ML BTL PO ONE (08:45)
[2023-09-05] MEDS ORDERED: SODIUM CHLORIDE 0.9% 1,000 ML IV PRN ×2 (08:45→14:30)
[2023-09-05 08:49] LABS: ALBUMIN 3.1 g/dL (3.4-5.0); ALBUMIN/GLOBULIN RATIO 0.72 (1.1-2.4); ANION GAP 17.3 (7-21); BILIRUBIN, TOTAL 0.6 ng/dL (0.2-1.0); CALCIUM 8.5 mg/dL (8.5-10.1); POTASSIUM 4.3 mmol/L (3.5-5.1); PROTEIN, TOTAL 7.4 g/dL (6.4-8.2)
[2023-09-05 09:10] LABS: BASOPHILS 0.9 % (0-2); EOSINOPHILS 0.3 % (0-6); LYMPHOCYTES 32.3 % (24-44); MCH 32.2 (27-36); MCV 85.6 fl (81-99); MONOCYTES 7.1 % (0-12); NEUTROPHILS 59.4 % (39-80); RDW 15.1 (10.5-15.0)
[2023-09-05 09:16] LABS: PLATELET COUNT 12 K/uL (140-440)
[2023-09-05 09:22] LABS: HEMATOCRIT 32.6 % (35.0-50.0); RBC 3.77 M/ul (4.3-5.7)
[2023-09-05 09:26] LABS: MCHC 33.7 g/dl (30-36)
[2023-09-05] MEDS ORDERED: MORPHINE SULFATE 4 MG/ML VIAL IV ONE (09:45)
[2023-09-05 10:14] LABS: INR 0.94 (0.80-1.30); PROTIME 12.2 Sec (11.2-14.2)
[2023-09-05] MEDS ORDERED: MORPHINE SULFATE 10 MG/ML VIAL IV PRN (10:45)
[2023-09-05] MEDS ORDERED: PIPERACILLIN/TAZOBACTAM 3.375 GM in DEXTROSE 5% 100 ML IV ONE (12:30)
[2023-09-05] MEDS ORDERED: DEXTROSE 5% 100 ML IV ONE (12:31)
[2023-09-05] MEDS ORDERED: LORazepam 2 MG/ML VIAL IV ONE (13:45)
[2023-09-05 15:35] VITALS: BP 151/110
--- NOTE | 2023-09-07 16:04 | EKG ---
[facility] [address] [place], [place] [address] Signed Normal sinus rhythm Normal ECG When compared with ECG of 01-SEP-2023 19:48, No significant change was found Confirmed by HINA WALLACE MD ([id number]) on 09/07/2023 4:04:34 PM Electronically Signed By: HINA WALLACE 09/07/23 1604 PATIENT NAME: ANNABELLA DING Electrocardiogram DATE OF : 69 PHYSICIAN: HINA WALLACE REPORT #: [id number] REPORT IS CONFIDENTIAL AND NOT TO BE RELEASED WITHOUT AUTHORIZATION
== END 2023-09-05 15:35 | disposition short-term general hospital (02) ==
LOC: ED 08:06
PROVIDERS: Emergency Medicine
DX: K56.609 Unspecified intestinal obstruction, unspecified as to partial versus complete obstruction (principal); D61.818 Other pancytopenia; I10 Essential (primary) hypertension; E03.9 Hypothyroidism, unspecified; F32.A Depression, unspecified; Z79.890 Hormone replacement therapy; Z79.899 Other long term (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; Z88.1 Allergy status to other antibiotic agents
CPT/HCPCS: 36415; 71045; 74177; 80053; 81001; 83605; 83615; 83690; 84484; 85025; 85060; 85610; 85730; 93005; 93010; 96375; 96376; 99285-25; J2060; J2270; J2405; J2543; J7030

== ENCOUNTER 2023-12-13 09:23 | Observation (INO) | payer OTHER ==
[~2023-12-13] VITALS: Ht 165.1 cm; Wt 83.0 kg
--- OUTSIDE RECORDS SUMMARY | ~2023-12-13 | XMS | Continuity of Care Document ---
Demographics + + + | Address | [address] | | | [place] [address] | + + + | Preferred Language | Unknown | + + + | Marital Status | Unknown | + + + | Zoroastrian Affiliation | Unknown | + + + | Race | White | + + + | Ethnic Group | Not or | + + + Author + + + | Author | [facility] | + + + | Organization | [facility] | + + + | Address | [address] | | | [place] [address] | + + + | Phone | | + + + Care Team Providers + + + + | Care Nitroglycerin Nitrator Operator Batch Name | Role | Phone | + + + + Unavailable | Unavailable | + + + + Allergies No information. Encounters No information. Functional Status No information. Immunizations No information. Medications No information. Problems + + + + | date | description | facility | + + + + | 2023-09-23 14:05:17 | [facility] | [facility] | | | macroglobulinemia | | + + + + | 2023-09-23 14:05:17 | Thrombocytopenia, | [facility] | | | unspecified | | + + + + | 2023-09-23 14:05:17 | Vascular disorder of | [facility] | | | intestine, unspecified | | + + + + | 2023-09-23 14:05:17 | Weakness | [facility] | + + + + Procedures No information. Results/Labs No information. Social History +--------+ + + | date | description | facility | +--------+ + + Vital Signs No information."
--- OUTSIDE RECORDS SUMMARY | ~2023-12-13 | XMS | Continuity of Care Document ---
Demographics + + + | Address | [address] | | | [place] [address] | + + + | Preferred Language | Unknown | + + + | Marital Status | Unknown | + + + | Gnosticist Affiliation | Unknown | + + + | Race | White | + + + | Ethnic Group | Not or | + + + Author + + + | Author | [facility] | + + + | Organization | [facility] | + + + | Address | [address] | | | [place] [address] | + + + | Phone | | + + + Care Team Providers + + + + | Care Diesel Crane Operator Name | Role | Phone | + [...]
--- OUTSIDE RECORDS SUMMARY | 2023-12-13 09:28 | XMS ---
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 Family Medicine 02/17/2010-Current PHONE: Unknown -[facility]+ Dentist: Brine Maker [facility] PHONE: [phone] -RONALD- Dentist: Brine Maker [facility] DENTAL [facility] PHONE: [phone] STEPHANIE WHITE Emergency Medicine Current PHONE: [phone] Wade has no Care Guidelines for this patient. Araseli VISIT COUNT (12 MO.) [address] [facility] TOTAL 13 NOTE: Visits indicate total known visits. ED/UCC VISIT TRACKING (12 MO.) 12/13/2023 09:23 [facility] [place] TYPE: Emergency COMPLAINT: - WEAKNESS 10/10/2023 18:10 [facility] TYPE: Emergency DIAGNOSES: [address]. [facility] pain 18507. Unspecified abdominal pain 09/25/2023 13:57 [facility] TYPE: Emergency DIAGNOSES: 01175. PAIN MANAGEMENT 42239. [facility] macroglobulinemia 09/05/2023 08:07 [facility] [place] TYPE: Emergency COMPLAINT: - SHORTNESS OF BREATH DIAGNOSES: - Allergy status to other antibiotic agents - Depression, unspecified - Essential (primary) hypertension - Hormone replacement therapy - Hypothyroidism, unspecified - Other penitentiary (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 - Other pancytopenia - Unspecified abdominal pain - Unspecified intestinal obstruction, unspecified as to partial versus complete obstruction 09/01/2023 19:43 [facility] [place] TYPE: Emergency COMPLAINT: - TROUBLE BREATHING DIAGNOSES: - Allergy status to other antibiotic agents - Anemia, unspecified - Depression, unspecified - Essential (primary) hypertension - Hormone replacement therapy - Hypothyroidism, unspecified - Non-Hodgkin lymphoma, unspecified, unspecified site - 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 - Shortness of breath 07/14/2023 12:49 [facility] [place] TYPE: Emergency COMPLAINT: - SOB, ABD PAIN DIAGNOSES: - Essential (primary) hypertension - Hormone replacement therapy - 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 - Shortness of breath - Unspecified intestinal obstruction, unspecified as to partial versus complete obstruction 05/16/2023 13:23 [facility] [place] TYPE: Emergency COMPLAINT: - NOSE BLEED,CHEST PRESSURE,ABD PAIN DIAGNOSES: - Depression, unspecified - Epistaxis - Essential (primary) hypertension - Hormone replacement therapy - Hypothyroidism, unspecified - Non-Hodgkin lymphoma, unspecified, unspecified site - Other chest pain - Other penitentiary (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 - Other pancytopenia - Palpitations - Panic disorder [episodic paroxysmal anxiety] 05/02/2023 08:50 [facility] [place] TYPE: Emergency COMPLAINT: - NOSE BLEED DIAGNOSES: - Depression, unspecified - Epistaxis - Essential (primary) hypertension - Hormone replacement therapy - Hypothyroidism, unspecified - 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 - Other pancytopenia - [...] movements or postures, initial encounter - 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 - Pain in left ankle and joints of left foot - Panic disorder [episodic paroxysmal anxiety] - Sprain of unspecified ligament of left ankle, initial encounter 02/22/2023 06:00 [facility] [place] TYPE: Emergency COMPLAINT: - L FLANK PAIN DIAGNOSES: - Essential (primary) hypertension - halfway (current) use of systemic steroids - Low back pain, unspecified - Lumbago with sciatica, left side - 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 - Unspecified B-cell lymphoma, unspecified site 12/19/2022 15:59 [facility] [place] TYPE: Emergency COMPLAINT: - HEART PALPATATIONS DIAGNOSES: - Adverse effect of glucocorticoids and synthetic analogues, initial encounter - Anxiety disorder, unspecified - Contact with and (suspected) exposure to COVID-19 - Encounter for screening for COVID-19 - Essential (primary) hypertension - Hormone replacement therapy - halfway (current) use of systemic steroids - Other chest pain - Other penitentiary (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 12/14/2022 18:17 [facility] [place] TYPE: Emergency COMPLAINT: - NOSE BLEED DIAGNOSES: - Epistaxis - Essential (primary) hypertension - Hormone replacement therapy - Hypothyroidism, unspecified - Other penitentiary (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 - Other pancytopenia INPATIENT VISIT TRACKING (12 MO.) 10/10/2023 18:10 [facility] TYPE: Transplant DIAGNOSES: 63158. Acute cystitis without hematuria 82993. Immune thrombocytopenic purpura 47873. Neutropenia, unspecified 99096. Other appendicitis 63928. Other pancytopenia 63265. Other specified diseases of appendix 74492. Unspecified abdominal pain 06502. [facility] macroglobulinemia 09/25/2023 13:57 [facility] TYPE: Hematology DIAGNOSES: 18296. [facility] macroglobulinemia 09/05/2023 22:23 [facility] TYPE: Surgery COMPLAINT: - K55.9 DIAGNOSES: - Thrombocytopenia, unspecified - Vascular disorder of intestine, unspecified - [facility] macroglobulinemia - Weakness - bowel resection 09/05/2023 18:00 [facility] TYPE: General Medicine COMPLAINT: - K55.9 DIAGNOSES: - bowel obstruction , thrombocytopenia 07/14/2023 20:05 [facility] [place] TYPE: Medical Surgical COMPLAINT: - small bowel obstruction DIAGNOSES: - small bowel obstruction 05/06/2023 14:24 [facility] [place] TYPE: Observation COMPLAINT: - ABDOMINAL PAIN, THROMBOCYTOPENIC DIAGNOSES: - Essential (primary) hypertension - Generalized abdominal pain - Hormone replacement therapy - Other penitentiary (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 - Other pancytopenia - [...] Obesity, unspecified - Other ascites - Other penitentiary (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 - Other penitentiary (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 - Other pancytopenia - Other pancytopenia - Other specified postprocedural states - Other specified postprocedural states - Panic disorder [episodic paroxysmal anxiety] - Panic disorder [episodic paroxysmal anxiety] - Personal history of non-Hodgkin lymphomas - Personal history of non-Hodgkin lymphomas [email or web address]
[2023-12-13] MEDS ORDERED: levoFLOXacin 750 MG/150 ML BAG IV ONE (09:45)
[2023-12-13] MEDS ORDERED: PROCHLORPERAZINE EDISYLATE 10 MG/2 ML VIAL IV ONE (10:00)
[2023-12-13] MEDS ORDERED: SODIUM CHLORIDE 0.9% 1,000 ML IV PRN ×3 (10:00→14:00)
[2023-12-13 10:16] LABS: INR 1.03 (0.80-1.30); PROTIME 13.1 Sec (11.2-14.2)
[2023-12-13 10:18] LABS: PARTIAL THROMBOPLASTIN TIME 26.5 Sec (22.9-41.3)
[2023-12-13 10:20] LABS: ALBUMIN 3.3 g/dL (3.4-5.0); ALBUMIN/GLOBULIN RATIO 0.73 (1.1-2.4); ANION GAP 15.4 (7-21); BILIRUBIN, TOTAL 0.8 ng/dL (0.2-1.0); BUN/CREATININE RATIO 13.79 (6.0-28.6); CALCIUM 9.8 mg/dL (8.5-10.1); CREATININE, SERUM 0.87 mg/dL (0.55-1.02); POTASSIUM 4.4 mmol/L (3.5-5.1); PROTEIN, TOTAL 7.8 g/dL (6.4-8.2)
[2023-12-13 10:36] LABS: HEMOGLOBIN 6.5 g/dL (12.0-18.0); PLATELET COUNT 89 K/uL (140-440); RBC 1.71 M/ul (4.3-5.7); RDW 20.1 (10.5-15.0)
[2023-12-13 10:38] LABS: HEMATOCRIT 17.2 % (35.0-50.0); MCH 35.5 (27-36); MCHC 34.9 g/dl (30-36); MCV 101.6 fl (81-99); MONOCYTES 14.2 % (0-12); NEUTROPHILS 21.8 % (39-80)
[2023-12-13] MEDS ORDERED: LORazepam 2 MG/ML VIAL IV ONE ×2 (10:45→14:00)
[2023-12-13] MEDS ORDERED: ACYCLOVIR800 MG PO (10:57)
[2023-12-13] MEDS ORDERED: METRONIDAZOLE500 MG PO (10:57)
[2023-12-13] MEDS ORDERED: SULFAMETHOXAZO1 EAC1 PO (10:58)
[2023-12-13] MEDS ORDERED: LEVOFLOXACIN500 MG PO (10:58)
[2023-12-13] MEDS ORDERED: PREDNISONE20 MG PO (10:58)
[2023-12-13 11:47] LABS: INFLUENZA B NAA NEGATIVE (NEGATIVE); RESPIRATORY SYNCYTIAL VIR NAA NEGATIVE (NEGATIVE)
[2023-12-13 12:25] LABS: BILIRUBIN, URINE NEGATIVE (negative); BLOOD/HGB, URINE NEGATIVE (Negative); KETONE, URINE NEGATIVE (Negative); LEUK ESTERASE, URINE NEGATIVE (negative); NITRITE, URINE NEGATIVE (negative)
[2023-12-13 12:42] LABS: ABO B; ANTIBODY SCREEN NEGATIVE; RH POSITIVE
[2023-12-13 12:50] LABS: LACTIC ACID, BLOOD 4.2 mmol/L (0.4-2.0)
[2023-12-13] MEDS ORDERED: PROCHLORPERAZINE EDISYLATE 10 MG/2 ML VIAL IV PRN (14:15)
[2023-12-13] MEDS ORDERED: ondansetron HCL 4 MG/2 ML VIAL IV PRN (14:15)
[2023-12-13] MEDS ORDERED: SODIUM CHLORIDE 0.9% 1,000 ML IV SCH (14:15)
[2023-12-13] MEDS ORDERED: ACETAMINOPHEN 325 MG TAB PO PRN (14:15)
[2023-12-13 14:52] VITALS: BP 124/67
[2023-12-13] MEDS ORDERED: LEVOTHYROXINE100 MCG PO (15:48)
[2023-12-13] MEDS ORDERED: LORAZEPAM0.5 MG PO (15:49)
[2023-12-13] MEDS ORDERED: OMEPRAZOLE40 MG PO (15:55)
[2023-12-13] MEDS ORDERED: DULOXETINE HCL20 MG PO (15:55)
[2023-12-13] MEDS ORDERED: BUPROPION XL150 MG PO (15:55)
[2023-12-13] MEDS ORDERED: PROCHLORPERAZIN10 MG PO (15:56)
[2023-12-13] MEDS ORDERED: TRANEXAMIC ACI650 MG PO (15:57)
[2023-12-13 16:14] LABS: AHG CROSSMATCH COMPATIBLE
[2023-12-13] MEDS ORDERED: IBUPROFEN 600 MG TAB PO PRN (16:15)
[2023-12-13 16:24] VITALS: BP 124/67
[2023-12-13] MEDS ORDERED: LORazepam 0.5 MG TAB PO PRN (17:00)
[2023-12-13 17:54] VITALS: BP 143/91
[2023-12-13 17:59] VITALS: BP 143/91
[2023-12-13] MEDS ORDERED: PROPRANOLOL 40 MG PO ONE (20:45)
[2023-12-13] MEDS ORDERED: TRANEXAMIC ACID 650 MG PO ONE (20:45)
[2023-12-13 21:39] LABS: HEMATOCRIT 21.6 % (35.0-50.0)
[2023-12-13 21:41] LABS: EOSINOPHILS 17.6 % (0-6); HEMOGLOBIN 7.9 g/dL (12.0-18.0); LYMPHOCYTES 50.3 % (24-44); MCH 35.5 (27-36); MCHC 36.7 g/dl (30-36); MCV 96.8 fl (81-99); MONOCYTES 25.7 % (0-12); NEUTROPHILS 6.4 % (39-80); RBC 2.23 M/ul (4.3-5.7); RDW 21.1 (10.5-15.0)
[2023-12-13 21:45] LABS: PLATELET COUNT 40 K/uL (140-440)
[2023-12-13 21:51] VITALS: BP 112/66
[2023-12-13 22:00] VITALS: BP 112/66
[2023-12-13] MEDS ORDERED: ALTEPLASE 2 MG/2 ML VIAL IV SCH (22:30)
[2023-12-14 01:55] VITALS: BP 114/61
[2023-12-14 05:10] VITALS: BP 134/64
[2023-12-14 06:08] LABS: ALBUMIN 2.7 g/dL (3.4-5.0); ALBUMIN/GLOBULIN RATIO 0.69 (1.1-2.4); ANION GAP 10.9 (7-21); BILIRUBIN, TOTAL 0.7 ng/dL (0.2-1.0); BUN/CREATININE RATIO 12.5 (6.0-28.6); CREATININE, SERUM 0.64 mg/dL (0.55-1.02); MAGNESIUM 1.9 mg/dL (1.8-2.4); PHOSPHORUS, INORGANIC 4.7 mg/dL (2.5-4.9); POTASSIUM 3.9 mmol/L (3.5-5.1); PROTEIN, TOTAL 6.6 g/dL (6.4-8.2)
[2023-12-14 06:13] LABS: MCV 96.1 fl (81-99)
[2023-12-14 06:15] LABS: EOSINOPHILS 18.3 % (0-6); HEMATOCRIT 22.5 % (35.0-50.0); HEMOGLOBIN 8.3 g/dL (12.0-18.0); LYMPHOCYTES 35.3 % (24-44); MCH 35.4 (27-36); MCHC 36.8 g/dl (30-36); MONOCYTES 39.6 % (0-12); NEUTROPHILS 6.8 % (39-80); RBC 2.34 M/ul (4.3-5.7); RDW 21.5 (10.5-15.0)
[2023-12-14 06:18] LABS: PLATELET COUNT 38 K/uL (140-440)
[2023-12-14] MEDS ORDERED: PROPRANOLOL HCL40 MG PO (08:51)
[2023-12-14] MEDS ORDERED: TRANEXAMIC ACID25 GM MM (08:52)
[2023-12-14] MEDS ORDERED: TRANEXAMIC ACID 650 MG TABLET PO SCH (09:00)
[2023-12-14] MEDS ORDERED: buPROPion HCL XL 150 MG TAB.XL.24H PO SCH (09:00)
[2023-12-14] MEDS ORDERED: TRIMETHOPRIM/SULFAMETHOXAZOLE 1 EA TAB PO SCH (09:00)
[2023-12-14] MEDS ORDERED: DULOXETINE HCL 20 MG CAP PO SCH (09:00)
[2023-12-14] MEDS ORDERED: ACYCLOVIR 400 MG TAB PO SCH (09:00)
[2023-12-14] MEDS ORDERED: PROPRANOLOL HCL 20 MG TAB PO SCH (09:00)
[2023-12-14] MEDS ORDERED: LEVOTHYROXINE SODIUM 100 MCG TAB PO SCH (09:00)
[2023-12-14] MEDS ORDERED: PANTOPRAZOLE SODIUM 40 MG TABEC PO SCH (09:00)
[2023-12-14 09:20] VITALS: BP 120/72
[2023-12-14 11:01] VITALS: BP 120/72
[2023-12-14] MEDS ORDERED: ONDANSETRON ODT8 MG PO (11:15)
[2023-12-14] MEDS ORDERED: PHARMACY RENAL DOSE ADJUSTMENT 1 DOSE MISC PO SCH (12:00)
[2023-12-14] MEDS ORDERED: PREDNISONE20 MG PO (12:09)
== END 2023-12-14 12:13 | disposition home or self-care (01) ==
LOC: ED 09:23 → MS 09:24
PROVIDERS: Emergency Medicine; ADMIT Family Medicine; ATTEND Family Medicine
DX: D64.9 Anemia, unspecified (principal); R53.1 Weakness; E87.20 Acidosis, unspecified; Z88.8 Allergy status to other drugs, medicaments and biological substances; Z79.899 Other long term (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; I10 Essential (primary) hypertension; E03.9 Hypothyroidism, unspecified; F32.A Depression, unspecified
CPT/HCPCS: 36415; 36430; 71045; 80053; 81003; 83605; 83735; 84100; 85025; 85060; 85610; 85730; 86850; 86900; 86901; 86922; 87040; 87502; 96365; 96375; 96376; 99285-25; A9270; G0378; J0780; J1956; J2060; J2997; J7030; P9040; U0002

== ENCOUNTER 2024-01-06 09:41 | Emergency (ER) | payer OTHER ==
[~2024-01-06] VITALS: Ht 165.1 cm; Wt 80.0 kg
[~2024-01-06 09:41] MED LIST changes: +ACYCLOVIR800 MG PO; +BUPROPION XL150 MG PO; +DULOXETINE HCL20 MG PO; +LEVOFLOXACIN500 MG PO; +LEVOTHYROXINE100 MCG PO; +LORAZEPAM0.5 MG PO; +METRONIDAZOLE500 MG PO; +OMEPRAZOLE40 MG PO; +ONDANSETRON ODT8 MG PO; +PROCHLORPERAZIN10 MG PO; +SULFAMETHOXAZO1 EAC1 PO; +TRANEXAMIC ACI650 MG PO; +TRANEXAMIC ACID25 GM MM
--- OUTSIDE RECORDS SUMMARY | 2024-01-06 09:45 | XMS ---
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 Family Medicine 02/17/2010-Current PHONE: Unknown -, [facility]+ Dentist: Air Bag Buffer [facility] PHONE: [phone] -RONALD- Dentist: Air Bag Buffer [facility] DENTAL [facility] PHONE: [phone] STEPHANIE WHITE Emergency Medicine Current PHONE: [phone] Wade has no Care Guidelines for this patient. Araseli VISIT COUNT (12 MO.) 10 [facility] 2 [facility] TOTAL 12 NOTE: Visits indicate total known visits. ED/UCC VISIT TRACKING (12 MO.) 01/06/2024 09:42 [facility] [place] TYPE: Emergency COMPLAINT: - SHORTNESS OF BREATH 12/13/2023 09:23 [facility] [place] TYPE: Emergency COMPLAINT: - WEAKNESS 10/10/2023 18:10 [facility] TYPE: Emergency DIAGNOSES: [address]3313. [facility] pain 12077. Unspecified abdominal pain 09/25/2023 13:57 [facility] TYPE: Emergency DIAGNOSES: 14505. PAIN MANAGEMENT 66496. [facility] macroglobulinemia 09/05/2023 08:07 [facility] [place] TYPE: Emergency COMPLAINT: - SHORTNESS OF BREATH DIAGNOSES: - Allergy status to other antibiotic agents - Depression, unspecified - Essential (primary) hypertension - Hormone replacement therapy - Hypothyroidism, unspecified - Other terminologist (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 - Other pancytopenia - [...] Non-Hodgkin lymphoma, unspecified, unspecified site - Other jail (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 - Shortness of breath 07/14/2023 12:49 [facility] [place] TYPE: Emergency COMPLAINT: - SOB, ABD PAIN DIAGNOSES: - Essential (primary) hypertension - Hormone replacement therapy - Other terminologist (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 - Shortness of breath - Unspecified intestinal obstruction, unspecified as to partial versus complete obstruction 05/16/2023 13:23 [facility] [place] TYPE: Emergency COMPLAINT: - NOSE BLEED,CHEST PRESSURE,ABD PAIN DIAGNOSES: - Depression, unspecified - Epistaxis - Essential (primary) hypertension - Hormone replacement therapy - Hypothyroidism, unspecified - Non-Hodgkin lymphoma, unspecified, unspecified site - Other chest pain - Other terminologist (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 - Other pancytopenia - Palpitations - Panic disorder [episodic paroxysmal anxiety] 05/02/2023 08:50 [facility] [place] TYPE: Emergency COMPLAINT: - NOSE BLEED DIAGNOSES: - Depression, unspecified - Epistaxis - Essential (primary) hypertension - Hormone replacement therapy - Hypothyroidism, unspecified - Other jail (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 - Other pancytopenia - Panic disorder [episodic paroxysmal anxiety] - Personal history of non-Hodgkin lymphomas 04/10/2023 06:44 [facility] [place] TYPE: Emergency COMPLAINT: - V/D, ABD PAIN 03/24/2023 11:25 [facility] [place] TYPE: Emergency COMPLAINT: - L ANKLE INJURY DIAGNOSES: - Activity, walking, marching and hiking - Essential (primary) hypertension - Hypothyroidism, unspecified - Other and unspecified overexertion or strenuous movements or postures, initial encounter - Other jail (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 - Pain in left ankle and joints of left foot - Panic disorder [episodic paroxysmal anxiety] - Sprain of unspecified ligament of left ankle, initial encounter 02/22/2023 06:00 [facility] [place] TYPE: Emergency COMPLAINT: - L FLANK PAIN DIAGNOSES: - Essential (primary) hypertension - [facility] (current) use of systemic steroids - Low back pain, unspecified - Lumbago with sciatica, left side - Other terminologist (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 - Unspecified B-cell lymphoma, unspecified site INPATIENT VISIT TRACKING (12 MO.) 12/13/2023 09:24 [facility] [place] TYPE: Observation COMPLAINT: - ANEMIA, LACTIC ACIDOIS DIAGNOSES: - Acidosis, unspecified - Allergy status to other drugs, medicaments and biological substances - Anemia, unspecified - Depression, unspecified - Essential (primary) hypertension - Hypothyroidism, unspecified - Other terminologist (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 - Weakness 10/10/2023 18:10 [facility] TYPE: Transplant DIAGNOSES: 81922. Acute cystitis without hematuria 40385. Immune thrombocytopenic purpura 27932. Neutropenia, unspecified 10309. Other appendicitis 83960. Other pancytopenia 89334. Other specified diseases of appendix 52092. Unspecified abdominal pain 28237. [facility] macroglobulinemia 09/25/2023 13:57 [facility] TYPE: Hematology DIAGNOSES: 96650. [facility] macroglobulinemia 09/05/2023 22:23 [facility] TYPE: Surgery COMPLAINT: - K55.9 DIAGNOSES: - Thrombocytopenia, unspecified - Vascular disorder of intestine, unspecified - [facility] macroglobulinemia - Weakness - bowel resection 09/05/2023 18:00 [facility] TYPE: General Medicine COMPLAINT: - K55.9 DIAGNOSES: - bowel obstruction , thrombocytopenia 07/14/2023 20:05 [facility] [place] TYPE: Medical Surgical COMPLAINT: - small bowel obstruction DIAGNOSES: - small bowel obstruction 05/06/2023 14:24 [facility] [place] TYPE: Observation COMPLAINT: - ABDOMINAL PAIN, THROMBOCYTOPENIC DIAGNOSES: - Essential (primary) hypertension - Generalized abdominal pain - Hormone replacement therapy - Other jail (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 - Other pancytopenia - Unspecified abdominal pain 04/10/2023 10:52 [facility] [place] TYPE: Medical Surgical COMPLAINT: - ABD [...] Obesity, unspecified - Other ascites - Other jail (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 - Other jail (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 - Other pancytopenia - Other pancytopenia - Other specified postprocedural states - Other specified postprocedural states - Panic disorder [episodic paroxysmal anxiety] - Panic disorder [episodic paroxysmal anxiety] - Personal history of non-Hodgkin lymphomas - Personal history of non-Hodgkin lymphomas [email or web address]
[2024-01-06] MEDS ORDERED: PROPRANOLOL HCL 20 MG TAB PO ONE (10:15)
[2024-01-06 10:39] LABS: BASOPHILS 0.6 % (0-2); EOSINOPHILS 0.6 % (0-6); HEMATOCRIT 26.4 % (35.0-50.0); HEMOGLOBIN 9.7 g/dL (12.0-18.0); LYMPHOCYTES 6.6 % (24-44); MCH 37.7 (27-36); MCHC 36.7 g/dl (30-36); MCV 102.9 fl (81-99); MONOCYTES 3.2 % (0-12); PLATELET COUNT 76 K/uL (140-440); RBC 2.56 M/ul (4.3-5.7); RDW 18.7 (10.5-15.0)
[2024-01-06 10:59] LABS: ALBUMIN 3.2 g/dL (3.4-5.0); ALBUMIN/GLOBULIN RATIO 0.84 (1.1-2.4); ANION GAP 11.1 (7-21); BILIRUBIN, TOTAL 0.7 ng/dL (0.2-1.0); BUN/CREATININE RATIO 14.86 (6.0-28.6); CALCIUM 9.3 mg/dL (8.5-10.1); CREATININE, SERUM 0.74 mg/dL (0.55-1.02); POTASSIUM 4.1 mmol/L (3.5-5.1)
[2024-01-06 11:41] VITALS: BP 125/89
--- NOTE | 2024-01-07 19:09 | EKG ---
[facility] [address] [facility] [place], [place] [address] Signed Sinus tachycardia Otherwise normal ECG When compared with ECG of 05-SEP-2023 08:40, No significant change was found Confirmed by Sawyer Pickens MD ([id number]) on 01/07/2024 7:09:46 PM Electronically Signed By: SAWYER PICKENS MD 01/07/24 1909 PATIENT NAME: ANNABELLA DING Electrocardiogram DATE OF : 69 PHYSICIAN: SAWYER PICKENS MD REPORT #: [id number] REPORT IS CONFIDENTIAL AND NOT TO BE RELEASED WITHOUT AUTHORIZATION
== END 2024-01-06 11:41 | disposition home or self-care (01) ==
LOC: ED 09:41
PROVIDERS: Emergency Medicine
DX: R00.0 Tachycardia, unspecified (principal); T44.7X6A Underdosing of beta-adrenoreceptor antagonists, initial encounter; C88.00 Waldenstrom macroglobulinemia not having achieved remission; I10 Essential (primary) hypertension; E03.9 Hypothyroidism, unspecified; Z91.148 Patient's other noncompliance with medication regimen for other reason; Z88.1 Allergy status to other antibiotic agents; Z91.048 Other nonmedicinal substance allergy status; Z79.52 Long term (current) use of systemic steroids; Z79.890 Hormone replacement therapy; Z79.2 Long term (current) use of antibiotics; Z79.899 Other long term (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
CPT/HCPCS: 36415; 71045; 80053; 84484; 85025; 85060; 93005; 93010; 99285-25

== ENCOUNTER 2024-01-27 10:50 | Emergency (ER) | payer OTHER ==
[~2024-01-27] VITALS: Ht 165.1 cm; Wt 80.7 kg
--- OUTSIDE RECORDS SUMMARY | 2024-01-27 10:55 | XMS ---
PreManage Notification: ANNABELLA DING Security Safety And Health Consultant Events No recent Security Events currently on file CRITERIA MET - 6 ED Visits in 6 Months - [facility] - 2 Visits in 30 Days CARE PROVIDERS MARISELA SAUL Family Medicine 02/17/2010-Current PHONE: Unknown -, [facility] Dentist: Mechanical Maintenance Technician [facility] PHONE: [phone] -RONALD- Dentist: Mechanical Maintenance Technician [facility] PHONE: [phone] STEPHANIE WHITE Emergency Medicine Current PHONE: Unknown Wade has no Care Guidelines for this patient. Araseli VISIT COUNT (12 MO.) MARIAN Zamora 2 [facility] TOTAL 13 NOTE: Visits indicate total known visits. 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 [facility] pain 49116. Unspecified abdominal pain 09/25/2023 13:57 [facility] TYPE: Emergency DIAGNOSES: 83825. PAIN MANAGEMENT 08696. 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 system operator (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 - Shortness of breath 07/14/2023 12:49 [facility] TYPE: Emergency COMPLAINT: - SOB, ABD PAIN DIAGNOSES: - Essential (primary) hypertension - Hormone replacement therapy - Other fpc (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 - Shortness of breath - Unspecified intestinal obstruction, unspecified as to partial versus complete obstruction 05/16/2023 13:23 [facility] TYPE: Emergency COMPLAINT: - NOSE BLEED,CHEST PRESSURE,ABD PAIN DIAGNOSES: - Depression, unspecified - Epistaxis - Essential (primary) hypertension - Hormone replacement therapy - Hypothyroidism, unspecified - Non-Hodgkin lymphoma, unspecified, unspecified site - Other chest pain - Other fpc (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 - Other pancytopenia - Palpitations - Panic disorder [episodic paroxysmal anxiety] 05/02/2023 08:50 [facility] TYPE: Emergency COMPLAINT: - NOSE BLEED DIAGNOSES: - Depression, unspecified - Epistaxis - Essential (primary) hypertension - Hormone replacement therapy - Hypothyroidism, unspecified - Other 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 system 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 (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 - Other pancytopenia - [...] movements or postures, initial encounter - Other fpc (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 - Pain in left ankle and joints of left foot - Panic disorder [episodic paroxysmal anxiety] - Sprain of unspecified ligament of left ankle, initial encounter 02/22/2023 06:00 [facility] TYPE: Emergency COMPLAINT: - L FLANK PAIN DIAGNOSES: - Essential (primary) hypertension - senior living (current) use of systemic steroids - Low back pain, unspecified - Lumbago with sciatica, left side - Other terminal system operator (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 - Unspecified B-cell lymphoma, unspecified site INPATIENT VISIT TRACKING (12 MO.) 12/13/2023 09:24 [facility] TYPE: Observation COMPLAINT: - ANEMIA, LACTIC ACIDOIS DIAGNOSES: - Acidosis, unspecified - Allergy status to other drugs, medicaments and biological substances - Anemia, unspecified - Depression, unspecified - Essential (primary) hypertension - Hypothyroidism, unspecified - Other fpc (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 - Weakness 10/10/2023 18:10 [facility] TYPE: Transplant DIAGNOSES: 98688. Acute cystitis without hematuria 71461. 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 Neutropenia, unspecified 71246. Other appendicitis 69935. Other pancytopenia 16789. Other specified diseases of appendix 12957. Unspecified abdominal pain 68916. Waldenstrom macroglobulinemia 09/25/2023 13:57 [facility] TYPE: Hematology DIAGNOSES: 27965. Waldenstrom macroglobulinemia 09/05/2023 22:23 [facility] TYPE: Surgery COMPLAINT: - K55.9 DIAGNOSES: - Thrombocytopenia, unspecified - Vascular disorder of intestine, unspecified - Waldenstrom macroglobulinemia - Weakness - bowel resection 09/05/2023 18:00 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 [place] TYPE: Medical Surgical COMPLAINT: - ABD [...] Obesity, unspecified - Other ascites - Other fpc (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 - Other terminal system operator (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 - Other pancytopenia - Other pancytopenia - Other specified postprocedural states - Other specified postprocedural states - Panic disorder [episodic paroxysmal anxiety] - Panic disorder [episodic paroxysmal anxiety] - Personal history of non-Hodgkin lymphomas - Personal history of non-Hodgkin lymphomas [email or web address]
[2024-01-27] MEDS ORDERED: SODIUM CHLORIDE 0.9% 1,000 ML IV ONE (11:00)
[2024-01-27] MEDS ORDERED: LORazepam 2 MG/ML VIAL IV ONE (11:15)
[2024-01-27 11:16] LABS: HEMATOCRIT 20.9 % (35.0-50.0); HEMOGLOBIN 7.5 g/dL (12.0-18.0); MCH 37.5 (27-36)
[2024-01-27 11:18] LABS: EOSINOPHILS 4.4 % (0-6); MCHC 35.7 g/dl (30-36); MCV 105.1 fl (81-99); MONOCYTES 3.4 % (0-12); NEUTROPHILS 53.2 % (39-80); RBC 1.99 M/ul (4.3-5.7)
[2024-01-27 11:30] LABS: ALBUMIN 3.2 g/dL (3.4-5.0); ALBUMIN/GLOBULIN RATIO 0.89 (1.1-2.4); ANION GAP 24.2 (7-21); CALCIUM 9.3 mg/dL (8.5-10.1); POTASSIUM 4.2 mmol/L (3.5-5.1); PROTEIN, TOTAL 6.8 g/dL (6.4-8.2)
[2024-01-27 11:41] LABS: PLATELET COUNT 31 K/uL (140-440)
[2024-01-27] MEDS ORDERED: MAGNESIUM OXIDE 400 MG TABLET PO ONE (12:45)
[2024-01-27 13:01] VITALS: BP 108/77
--- NOTE | 2024-01-27 17:04 | NUR ---
PATIENT IN FOR ONE UNIT OF PRBC. BLOOD INFUSING TO LEFT PICC LINE. PATIENT IS TO HAVE POST SALINE FLUSH ONLY R/T LOW PLATELETS. VITALS ARE STABLE FOR FIRST 15 MINUTES OF INFUSIONS, NO REACTIONS NOTED. RATE ADVANCED TO 150CC/HR. PATIENT IS RESTING IN BED, NO NEEDS AT THIS TIME.
--- NOTE | 2024-01-27 19:30 | NUR ---
SHIFT REPORT RECEIVED FROM DAYSHIFT HOOKER OPERATOR YVETTE AT BEDSIDE. BLOOD TRANSFUSING WNL, PICC DRESSING TO LEFT UPPER ARM C/D/I. pt AWAKE AND RESTING IN BED, APPRECIATIVE OF CARES AND DENIES NEEDS OR CONCENS, SIG OTHER IN ROOM AND CALL LIGHT IN REACH. pt DENIES S/SX OF BLOOD TRANSFUSION REACTION, WILL CONTINUE TO MONITOR.
--- NOTE | 2024-01-27 20:06 | NUR ---
ONE AND ONLY UNIT OF PRBC'S TRANSFUSION COMPLETED AT THIS TIME, BOTH LUMENS HAVE BRISK BLOOD RETURN AND FLUSHED WITH 20MLS EACH PULSATILE SALINE, NEW CLAVE PLACED ON RED TOPPED LUMEN FOLLOWING TRANSFUSION FOR INFECTION PREVENTION AND NEW ALCOHOL CAP ON EACH. DRESSING C/D/I. PER SHIFT REPORT AND pt, pt NOT RECEIVING HEP LOCKS TO PICC D/T LOW PLATELETS, pt STATES, "I'VE NEVER BEEN GIVEN HEPARIN". POST INFUSION VSS, pt A/OX4, DENIES S/SX OF INFUSION REACTION, VERY STEADY ON FEET. VOIDED IN BATHROOM AND DENIED NEEDS OR CONCERNS. pt OFF FLOOR WITH SIG OTHER VIA WC.
== END 2024-01-27 13:05 | disposition home or self-care (01) ==
LOC: ED 10:50
PROVIDERS: Emergency Medicine
DX: D61.818 Other pancytopenia (principal); F41.9 Anxiety disorder, unspecified; C85.90 Non-Hodgkin lymphoma, unspecified, unspecified site; I10 Essential (primary) hypertension; Z88.8 Allergy status to other drugs, medicaments and biological substances; Z91.09 Other allergy status, other than to drugs and biological substances; Z79.899 Other long term (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; Z79.890 Hormone replacement therapy; Z79.01 Long term (current) use of anticoagulants
CPT/HCPCS: 36415; 71045; 80053; 83735; 85025; 85060; 86922; 96374; 99285-25; J2060; J7030

== ENCOUNTER 2024-06-01 10:20 | Day surgery (SDC) | payer OTHER ==
[2024-05-30 15:19] VITALS: BP 115/64
[~2024-06-01] VITALS: Ht 165.1 cm; Wt 80.0 kg
[~2024-06-01 10:20] MED LIST changes: +ACETAMINOPHEN325 M1 PO; +IBLOOD GLUCOSE TEST STRIP 1 EA TEST VI PRN; +LACTATED RINGER'S 1,000 ML IV SCH; +LIDOCAINE HCL 1% 5 ML SDV INJ ONE; +VENCLEXTA100 MG PO
[2024-06-01] MEDS ORDERED: MIDAZOLAM HCL 2 MG/2 ML VIAL IV ONE (11:00)
[2024-06-01 11:04] LABS: BASOPHILS, ABSOLUTE 0 %; EOSINOPHILS, ABSOLUTE 0; HEMOGLOBIN 12.9 g/dL (12.0-18.0); LYMPHOCYTES, ABSOLUTE 0.1; MONOCYTES, ABSOLUTE 0; NEUTROPHILS, ABSOLUTE 0.1
[2024-06-01 11:06] LABS: BASOPHILS 1.2 % (0-2); EOSINOPHILS 0.5 % (0-6); HEMATOCRIT 35.4 % (35.0-50.0); LYMPHOCYTES 34.3 % (24-44); MCH 29.2 (27-36); MCHC 36.6 g/dl (30-36); MONOCYTES 13.8 % (0-12); NEUTROPHILS 50.2 % (39-80); RBC 4.43 M/ul (4.3-5.7); RDW 13.4 (10.5-15.0)
[2024-06-01 11:07] VITALS: BP 109/57
[2024-06-01 11:30] LABS: PLATELET COUNT 8 K/uL (140-440)
--- NOTE | 2024-06-01 11:34 | NUR ---
NOTIFIED FROM LAB THAT PLATELET COUNT IS 8. DR. CHÁVEZ'S OFFICE NOTIFIED OF CRITICAL PLATELET COUNT.
[2024-06-01 11:40] LABS: ABO B; RH POSITIVE
[2024-06-01 11:41] LABS: ANTIBODY SCREEN NEGATIVE
[2024-06-01] MEDS ORDERED: LIDOCAINE HCL 2% 5 ML SDV ONE (12:03)
[2024-06-01] MEDS ORDERED: propofoL 200 MG/20 ML VIAL ONE (12:03)
[2024-06-01 12:08] LABS: BASOPHILS, ABSOLUTE 0 %; EOSINOPHILS, ABSOLUTE 0; LYMPHOCYTES, ABSOLUTE 0.1; MONOCYTES, ABSOLUTE 0.1; NEUTROPHILS, ABSOLUTE 0.1
[2024-06-01 12:10] LABS: BASOPHILS 0.5 % (0-2); EOSINOPHILS 0.6 % (0-6); HEMATOCRIT 18.9 % (35.0-50.0); LYMPHOCYTES 41.5 % (24-44); MCH 29.5 (27-36); MCHC 36.7 g/dl (30-36); MCV 80.5 fl (81-99); MONOCYTES 16.5 % (0-12); NEUTROPHILS 40.9 % (39-80); RBC 2.35 M/ul (4.3-5.7); RDW 13.2 (10.5-15.0)
[2024-06-01 12:11] LABS: PLATELET COUNT 10 K/uL (140-440)
--- NOTE | 2024-06-01 12:39 | NUR ---
06/01/24 1239 Apoorva Hirsch 1231: PT ARRIVES TO PACU DROWSY, BUT AROUSABLE. NO C/O PAIN OR NAUSEA. OMKAR 1239: PT WAKES UP AND ASKS IF SHE IS DONE YET. SHE IS EDUCATED THAT SHE IS ALL DONE, SHE IS VERY PLEASED BY THIS.
[2024-06-01 13:03] VITALS: BP 112/73
[2024-06-02 10:40] LABS: IS CROSSMATCH COMPATIBLE
[2024-06-02 10:56] LABS: IMMUNOGLOBULIN A 41 mg/dL (68-408); IMMUNOGLOBULIN G 627 mg/dL (768-1632); IMMUNOGLOBULIN M 690 mg/dL (35-263)
== END 2024-06-01 13:13 | disposition home or self-care (01) ==
LOC: OPS 10:20 → DS 10:20 → OPS 12:00 → DS 12:00 → OPS 13:13
PROVIDERS: ATTEND Specialist
PROC: 079T3ZX Drainage of Bone Marrow, Percutaneous Approach, Diagnostic (ICD-10-PCS; 2024-06-01)
PROC: 07DR0ZX Extraction of Iliac Bone Marrow, Open Approach, Diagnostic (ICD-10-PCS; principal; 2024-06-01 12:00)
DX: C88.00 Waldenstrom macroglobulinemia not having achieved remission (principal); I10 Essential (primary) hypertension; E03.9 Hypothyroidism, unspecified; Z79.899 Other long term (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; D61.818 Other pancytopenia
CPT/HCPCS: 01112; 36415; 85025; 85060; 86850; 86900; 86901; 86922; J2003; J2250; J2704; J7121; P9037; P9040; P9073

== ENCOUNTER 2024-10-10 14:17 | Emergency (ER) | payer OTHER ==
[~2024-10-10] VITALS: Ht 1808.5 cm; Wt 84.8 kg
--- NOTE | 2024-10-10 11:50 | NUR ---
VISITED DURING SPIRITUAL CARE ROUNDS. PT STATED NOT HAVING GOOD DAY, VISIBLY TIRED AND BRUISED. DECLINED THERAPY DOG VISIT. REQUESTED PRAYER WHICH CLOUD CONSULTANT PROVIDED. PT EXPRESSED GRATITUDE FOR VISIT.
[~2024-10-10 14:17] MED LIST changes: +DARZALEX FASPRO15 ML SUB-Q; +GAMMAPLEX 20 G200 ML IV; -IBLOOD GLUCOSE TEST STRIP 1 EA TEST VI PRN; -LACTATED RINGER'S 1,000 ML IV SCH; -LIDOCAINE HCL 1% 5 ML SDV INJ ONE; +ZARXIO480 MCG/0. SUB-Q
[2024-10-10] MEDS ORDERED: OXYCODONE HCL5 M3 PO (14:41)
[2024-10-10] MEDS ORDERED: PROCHLORPERAZINE EDISYLATE 10 MG/2 ML VIAL IV ONE ×2 (15:15→21:15)
[2024-10-10] MEDS ORDERED: MORPHINE SULFATE 10 MG/ML VIAL IV ONE (15:15)
[2024-10-10] MEDS ORDERED: LORazepam 2 MG/ML VIAL IV ONE (17:00)
[2024-10-10] MEDS ORDERED: MORPHINE SULFATE 4 MG/ML VIAL IV ONE (17:00)
[2024-10-10] MEDS ORDERED: MORPHINE SULFATE 4 MG/ML VIAL IV PRN (19:00)
[2024-10-10] MEDS ORDERED: LORazepam 2 MG/ML VIAL IV PRN (19:00)
[2024-10-10] MEDS ORDERED: KETOROLAC TROMETHAMINE 30 MG/ML VIAL IV ONE (21:45)
[2024-10-10 22:45] VITALS: BP 118/74
== END 2024-10-10 22:25 | disposition short-term general hospital (02) ==
LOC: ED 14:17
DX: I60.9 Nontraumatic subarachnoid hemorrhage, unspecified (principal); D61.9 Aplastic anemia, unspecified; K92.2 Gastrointestinal hemorrhage, unspecified; C88.00 Waldenstrom macroglobulinemia not having achieved remission; C90.00 Multiple myeloma not having achieved remission; E03.9 Hypothyroidism, unspecified; I10 Essential (primary) hypertension; Z98.1 Arthrodesis status; Z91.048 Other nonmedicinal substance allergy status; Z88.1 Allergy status to other antibiotic agents; Z79.890 Hormone replacement therapy; Z79.899 Other long term (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
CPT/HCPCS: 70450; 96374; 96375; 96376; 99285-25; J0780; J2060; J2270

== ENCOUNTER 2024-12-30 09:49 | Emergency (ER) | payer OTHER ==
[~2024-12-30] VITALS: Ht 165.1 cm; Wt 88.0 kg
[~2024-12-30 09:49] MED LIST changes: +OXYCODONE HCL5 M3 PO
[2024-12-30] MEDS ORDERED: LACTATED RINGER'S 1,000 ML IV ONE (10:15)
[2024-12-30 10:16] LABS: BASOPHILS 0 % (0.1-1.2); BASOPHILS, ABSOLUTE 0 K/uL (0.01-0.08); EOSINOPHILS 0 % (0.7-5.8); EOSINOPHILS, ABSOLUTE 0 K/uL (0.04-0.36); LYMPHOCYTES 10.1 % (19.3-51.7); MCH 28.6 PG (25.6-32.2); MCHC 33.1 g/dL (32.2-35.5); MCV 86.4 fL (79.4-94.8); MONOCYTES 22.1 % (4.7-12.5); MONOCYTES, ABSOLUTE 0.33 K/uL (0.24-0.86); NEUTROPHILS 66.5 % (34.0-71.1); NEUTROPHILS, ABSOLUTE 0.99 K/uL (1.56-6.13); RBC 1.54 M/uL (3.93-5.22)
[2024-12-30 10:26] LABS: ALCOHOL, MEDICAL <3 ng/dL (<3); ALT (SGPT) 31 U/L (14-59); AST (SGOT) 16 U/L (15-37); GLOMERULAR FILTRATION RATE,EST 53 mL/min (>60); PROTEIN, TOTAL 5.2 g/dL (6.4-8.2); UREA NITROGEN 31 mg/dL (7-18)
[2024-12-30] MEDS ORDERED: SODIUM CHLORIDE 0.9% 1,000 ML IV PRN (10:45)
[2024-12-30 13:30] LABS: BLOOD/HGB, URINE NEGATIVE (Negative); KETONE, URINE SMALL (Negative); LEUK ESTERASE, URINE NEGATIVE (negative); NITRITE, URINE NEGATIVE (negative)
[2024-12-30 15:04] VITALS: BP 119/70
--- NOTE | 2025-01-01 15:13 | EKG ---
[facility] [address] [facility] [place], [place] [address] Signed Sinus tachycardia Otherwise normal ECG When compared with ECG of 06-JAN-2024 10:05, No significant change was found Confirmed by HINA WALLACE MD ([id number]) on 01/01/2025 3:13:18 PM Electronically Signed By: HINA WALLACE 01/01/25 1513 PATIENT NAME: ANNABELLA DING Electrocardiogram DATE OF : 69 PHYSICIAN: HINA WALLACE REPORT #: [id number] REPORT IS CONFIDENTIAL AND NOT TO BE RELEASED WITHOUT AUTHORIZATION
== END 2024-12-30 15:03 | disposition short-term general hospital (02) ==
LOC: ED 09:49
PROVIDERS: Emergency Medicine
DX: R57.8 Other shock (principal); C85.80 Other specified types of non-Hodgkin lymphoma, unspecified site; E03.9 Hypothyroidism, unspecified; I10 Essential (primary) hypertension; Z66 Do not resuscitate; Z91.81 History of falling; Z91.048 Other nonmedicinal substance allergy status; Z88.1 Allergy status to other antibiotic agents; Z79.890 Hormone replacement therapy; Z79.899 Other long term (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
CPT/HCPCS: 36415; 70450; 71045; 71260; 72125; 74177; 80053; 81003; 83605; 85025; 85060; 86850; 86900; 86901; 86922; 93005; 93010; G0480; J2405; J7030; P9035; Q9967